=== PATIENT | female | born 1940 | race African-American/Black ===

== ENCOUNTER 2017-08-05 13:20 | Inpatient (IN) | payer OTHER ==
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
[2017-08-05] MEDS ORDERED: SODIUM CHLORIDE 1,000 ML IV STA (14:50)
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
[2017-08-05 16:17] LABS: BASOPHIL 0.3 % (0-2.0); EOSINOPHIL 1.9 % (0-4.5); MCH 26.3 pg (25.7-33.7); MCHC 32.2 g/dl (32.0-36.0); MEAN CELL VOLUME 81.9 fl (80-96); MEAN PLT VOLUME 7.8 fl (7.5-11.1); NEUTROPHILS 68.5 % (42.8-82.8); PLATELET COUNT 212 K/MM3 (134-434); RDW 14.8 % (11.6-15.6); WHITE BLOOD COUNT 9.9 K/mm3 (4.0-10.0)
[2017-08-05 17:15] LABS: ALBUMIN 2.4 g/dl (3.4-5.0); ALK PHOS 70 U/L (45-117); ANION GAP 9 (8-16); BILIRUBIN,TOTAL 0.6 mg/dL (0.2-1.0); CO2 23 mmol/L (21-32); CPK 598 IU/L (26-192); CREATININE 0.6 mg/dL (0.55-1.02); GLUCOSE,RANDOM 72 mg/dL (74-106); MAGNESIUM 2.1 mg/dL (1.8-2.4); SGOT/AST 25 U/L (15-37); SGPT/ALT 30 U/L (12-78)
[2017-08-05 17:17] LABS: TROPONIN I < 0.02 ng/ml (0.00-0.05)
[2017-08-05 17:56] LABS: ACETONE SERUM POSITIVE SMALL 1+ (NEGATIVE)
[2017-08-05] MEDS ORDERED: SODIUM CHLORIDE 500 ML IV STA (18:02)
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
[2017-08-05] MEDS: HYDROCHLOROTHIAZIDE 25 MG TABLET (FP) PO SCH (20:06)
[2017-08-05] MEDS: HEPARIN NA (PORCINE) 5,000 UNITS/ML 1ML VIAL SQ SCH (20:06)
[2017-08-05] MEDS: COLLAGENASE CLOSTRIDIUM HIST. 30 GRAMS TUBE TP SCH (20:55)
[2017-08-05] MEDS ORDERED: IBUPROFEN 600 MG TABLET (FP) PO PRN (22:06)
[2017-08-05 23:52] VITALS: BMI 51.3
[2017-08-06] MEDS: HEPARIN NA (PORCINE) 5,000 UNITS/ML 1ML VIAL SQ SCH ×3 (05:38→22:23)
[2017-08-06 08:32] LABS: BASOPHIL 0.6 % (0-2.0); EOSINOPHIL 4.1 % (0-4.5); MCH 25.9 pg (25.7-33.7); MCHC 32.5 g/dl (32.0-36.0); MEAN CELL VOLUME 79.8 fl (80-96); MEAN PLT VOLUME 7.2 fl (7.5-11.1); NEUTROPHILS 54.2 % (42.8-82.8); PLATELET COUNT 273 K/MM3 (134-434); RDW 14.7 % (11.6-15.6); WHITE BLOOD COUNT 8.3 K/mm3 (4.0-10.0)
[2017-08-06 08:41] LABS: INR 1.27 (0.82-1.09); PROTHROMBIN TIME (PATIENT) 14.3 SEC (9.98-11.88)
[2017-08-06 08:45] LABS: ACTIVATED PTT 28.2 SECONDS (26.9-34.4)
[2017-08-06 08:47] LABS: ANION GAP 10 (8-16); BILIRUBIN,TOTAL 0.8 mg/dL (0.2-1.0); CALCIUM 7.7 mg/dL (8.5-10.1); CO2 23 mmol/L (21-32); CREATININE 0.7 mg/dL (0.55-1.02); GLUCOSE,RANDOM 74 mg/dL (74-106); PHOSPHOROUS 2.9 mg/dL (2.5-4.9); SGOT/AST 23 U/L (15-37); SGPT/ALT 27 U/L (12-78)
--- NOTE | 2017-08-06 08:47 | EKG ---
Test Reason : Blood Pressure : / mmHG Vent. Rate : 085 BPM Atrial Rate : 085 BPM P-R Int : 148 ms QRS Dur : 064 ms QT Int : 378 ms P-R-T Axes : 039 047 058 degrees QTc Int : 449 ms POOR DATA QUALITY, INTERPRETATION MAY BE ADVERSELY AFFECTED SINUS RHYTHM WITH PREMATURE SUPRAVENTRICULAR COMPLEXES JUNCTIONAL ST DEPRESSION, PROBABLY NORMAL BORDERLINE ECG WHEN COMPARED WITH ECG OF 08-JUN-2014 16:19, PREMATURE SUPRAVENTRICULAR COMPLEXES ARE NOW PRESENT T WAVE INVERSION NO LONGER EVIDENT IN ANTERIOR LEADS Confirmed by ROXANE LARA, MARIE ([id number]) on 08/06/2017 8:47:07 AM Referred By: Confirmed By:MARIE BETTS MD
[2017-08-06 08:49] LABS: ALK PHOS 59 U/L (45-117); TOT PROT 5.4 g/dl (6.4-8.2)
[2017-08-06] MEDS: COLLAGENASE CLOSTRIDIUM HIST. 30 GRAMS TUBE TP SCH (09:29)
[2017-08-06] MEDS: BACITRACIN 15 GM TUBE TOPICAL OINTMENT TP SCH ×2 (09:30→09:33)
[2017-08-06] MEDS: HYDROCHLOROTHIAZIDE 25 MG TABLET (FP) PO SCH (09:30)
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
[2017-08-06 11:07] LABS: URINE APPEARANCE CLOUDY; URINE BILIRUBIN NEGATIVE (NEGATIVE); URINE BLOOD 2+ (NEGATIVE); URINE COLOR YELLOW; URINE GLUCOSE (UA) NEGATIVE (NEGATIVE); URINE KETONE 1+ (NEGATIVE); URINE NITRITE NEGATIVE (NEGATIVE)
[2017-08-06 11:15] LABS: URINE PROTEIN 1+ (NEGATIVE)
[2017-08-06 11:18] LABS: URINE MUCUS RARE; URINE RBC 85 /hpf (0-3); URINE WBC 155 /hpf (3-5)
[2017-08-06] MEDS: ALBUTEROL SO4 18 GM HFA INHALER IH SCH ×2 (13:07→18:05)
[2017-08-06] MEDS: POTASSIUM CHLORIDE TABS 20 MEQ TABLET.ER (FP) PO SCH ×2 (13:07→18:05)
[2017-08-06] MEDS ORDERED: PT OWN MED DRAWER 7, Y5N ONE ×2 (13:12→18:01)
[2017-08-06 20:58] LABS: URINE LEUK ESTERASE 1+ (NEGATIVE)
[2017-08-06] MEDS ORDERED: IBUPROFEN 400 MG TABLET (FP) PO ONE (23:21)
[2017-08-07] MEDS: ALBUTEROL SO4 18 GM HFA INHALER IH SCH ×4 (00:26→17:46)
[2017-08-07] MEDS ORDERED: PT OWN MED DRAWER 7, Y5N ONE ×3 (05:49→17:48)
[2017-08-07] MEDS: HEPARIN NA (PORCINE) 5,000 UNITS/ML 1ML VIAL SQ SCH ×3 (05:53→23:05)
[2017-08-07] MEDS: COLLAGENASE CLOSTRIDIUM HIST. 30 GRAMS TUBE TP SCH (10:30)
[2017-08-07] MEDS: BACITRACIN 15 GM TUBE TOPICAL OINTMENT TP SCH (10:30)
[2017-08-07] MEDS: HYDROCHLOROTHIAZIDE 25 MG TABLET (FP) PO SCH (10:30)
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
[2017-08-07] MEDS: AMINO ACIDS/PROTEIN HYDROLYS 30 ML LIQUID.PKT PO SCH (17:02)
[2017-08-07] MEDS ORDERED: IBUPROFEN 400 MG TABLET (FP) PO ONE (23:00)
[2017-08-08] MEDS: ALBUTEROL SO4 18 GM HFA INHALER IH SCH ×3 (03:01→12:24)
[2017-08-08] MEDS ORDERED: IBUPROFEN 400 MG TABLET (FP) PO ONE (03:21)
[2017-08-08] MEDS: HEPARIN NA (PORCINE) 5,000 UNITS/ML 1ML VIAL SQ SCH ×3 (06:01→22:28)
[2017-08-08] MEDS: AMINO ACIDS/PROTEIN HYDROLYS 30 ML LIQUID.PKT PO SCH ×2 (08:29→19:07)
[2017-08-08 08:57] LABS: ALBUMIN 2.1 g/dl (3.4-5.0); ANION GAP 6 (8-16); BILIRUBIN,TOTAL 0.4 mg/dL (0.2-1.0); CO2 31 mmol/L (21-32); CREATININE 0.6 mg/dL (0.55-1.02); GLUCOSE,RANDOM 103 mg/dL (74-106); SGOT/AST 17 U/L (15-37); SGPT/ALT 25 U/L (12-78); TOT PROT 5.5 g/dl (6.4-8.2)
[2017-08-08 08:58] LABS: ALK PHOS 56 U/L (45-117); CPK 183 IU/L (26-192)
[2017-08-08] MEDS ORDERED: POTASSIUM CHLORIDE TABS 20 MEQ TABLET.ER (FP) PO ONE (10:00)
[2017-08-08] MEDS: HYDROCHLOROTHIAZIDE 25 MG TABLET (FP) PO SCH (10:17)
[2017-08-08] MEDS: COLLAGENASE CLOSTRIDIUM HIST. 30 GRAMS TUBE TP SCH (10:18)
[2017-08-08] MEDS: BACITRACIN 15 GM TUBE TOPICAL OINTMENT TP SCH (10:18)
[2017-08-08 12:47] LABS: URINE APPEARANCE CLEAR; URINE BILIRUBIN NEGATIVE (NEGATIVE); URINE BLOOD NEGATIVE (NEGATIVE); URINE COLOR LTYELLOW; URINE GLUCOSE (UA) NEGATIVE (NEGATIVE); URINE KETONE NEGATIVE (NEGATIVE); URINE NITRITE NEGATIVE (NEGATIVE); URINE PROTEIN NEGATIVE (NEGATIVE); URINE UROBILINOGEN NEGATIVE mg/dL (0.2-1.0)
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
[2017-08-08 17:37] LABS: URINE LEUK ESTERASE Negative (NEGATIVE)
[2017-08-08] MEDS ORDERED: PT OWN MED DRAWER 7, Y5N ONE (17:54)
[2017-08-09] MEDS: IBUPROFEN 400 MG TABLET (FP) PO PRN ×3 (00:12→18:49)
[2017-08-09] MEDS: HEPARIN NA (PORCINE) 5,000 UNITS/ML 1ML VIAL SQ SCH ×3 (06:35→21:42)
[2017-08-09 08:05] LABS: ANION GAP 10 (8-16); CALCIUM 8.8 mg/dL (8.5-10.1); CO2 29 mmol/L (21-32); CREATININE 0.6 mg/dL (0.55-1.02); GLUCOSE,RANDOM 98 mg/dL (74-106)
[2017-08-09] MEDS ORDERED: POTASSIUM CHLORIDE TABS 20 MEQ TABLET.ER (FP) PO ONE (09:00)
[2017-08-09] MEDS: HYDROCHLOROTHIAZIDE 25 MG TABLET (FP) PO SCH (10:26)
[2017-08-09] MEDS: AMINO ACIDS/PROTEIN HYDROLYS 30 ML LIQUID.PKT PO SCH ×2 (10:27→18:45)
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
[2017-08-09] MEDS: COLLAGENASE CLOSTRIDIUM HIST. 30 GRAMS TUBE TP SCH (16:27)
[2017-08-09] MEDS: BACITRACIN 15 GM TUBE TOPICAL OINTMENT TP SCH (16:33)
[2017-08-09] MEDS: ALBUTEROL SO4 18 GM HFA INHALER IH PRN (21:42)
[2017-08-10] MEDS: ALBUTEROL SO4 18 GM HFA INHALER IH PRN (05:47)
[2017-08-10] MEDS: HEPARIN NA (PORCINE) 5,000 UNITS/ML 1ML VIAL SQ SCH ×3 (05:47→20:59)
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
[2017-08-10] MEDS: AMINO ACIDS/PROTEIN HYDROLYS 30 ML LIQUID.PKT PO SCH ×2 (08:19→17:33)
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
[2017-08-10] MEDS ORDERED: PT OWN MED DRAWER 7, Y5N ONE (09:47)
[2017-08-10] MEDS: BACITRACIN 15 GM TUBE TOPICAL OINTMENT TP SCH (09:56)
[2017-08-10] MEDS: HYDROCHLOROTHIAZIDE 25 MG TABLET (FP) PO SCH (09:56)
[2017-08-10] MEDS: COLLAGENASE CLOSTRIDIUM HIST. 30 GRAMS TUBE TP SCH (09:56)
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
[2017-08-10] MEDS: IBUPROFEN 400 MG TABLET (FP) PO PRN (20:45)
[2017-08-11] MEDS: HEPARIN NA (PORCINE) 5,000 UNITS/ML 1ML VIAL SQ SCH (05:38)
[2017-08-11] MEDS: IBUPROFEN 400 MG TABLET (FP) PO PRN (06:07)
[2017-08-11] MEDS: AMINO ACIDS/PROTEIN HYDROLYS 30 ML LIQUID.PKT PO SCH (08:23)
[2017-08-11] MEDS ORDERED: PT OWN MED DRAWER 7, Y5N ONE (09:43)
[2017-08-11] MEDS: HYDROCHLOROTHIAZIDE 25 MG TABLET (FP) PO SCH (09:44)
[2017-08-11 12:20] VITALS: BP 118/66; PULSE 66; TEMP 98.1
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
[2017-08-11] MEDS: COLLAGENASE CLOSTRIDIUM HIST. 30 GRAMS TUBE TP SCH (13:15)
[2017-08-11] MEDS: BACITRACIN 15 GM TUBE TOPICAL OINTMENT TP SCH (13:15)
== END 2017-08-11 14:01 | DRG 564 ==
LOC: JER 13:20 → JERBED 18:09 → J8W 19:36 → OBSVTOIN 08-08 15:33
PROVIDERS: ADMIT Internal Medicine; ATTEND Hospitalist
DX: T79.6XXA Traumatic ischemia of muscle, initial encounter (principal); L89.313 Pressure ulcer of right buttock, stage 3; T74.11XA Adult physical abuse, confirmed, initial encounter; Z68.43 Body mass index [BMI] 50.0-59.9, adult; N39.0 Urinary tract infection, site not specified; E87.2 Acidosis; W18.39XA Other fall on same level, initial encounter; E66.01 Morbid (severe) obesity due to excess calories; I10 Essential (primary) hypertension; J45.909 Unspecified asthma, uncomplicated; Z90.5 Acquired absence of kidney; E87.6 Hypokalemia; M19.90 Unspecified osteoarthritis, unspecified site; M79.606 Pain in leg, unspecified
CPT/HCPCS: 36415; 71010-TC; 73523-TC; 80048; 80053; 81003; 81015; 82009; 82550; 82553; 83735; 83880; 84100; 84484; 85025; 85610; 85730; 86850; 86900; 86901; 87086; 93005; 93010; 97116-GP; 97161-GP; 99285-25; G0378; J1644

== ENCOUNTER 2019-08-15 12:50 | Inpatient (IN) | payer OTHER ==
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
[2019-08-15] MEDS ORDERED: SODIUM CHLORIDE 0.9% 1000 ML INFUS.BAG IV ONE (13:30)
--- NOTE | 2019-08-15 13:47 | PDOC ---
History of Present Illness - General Stated Complaint: FALL Time Seen by Provider: 08/15/19 13:08 History Source: Patient - History of Present Illness Initial Comments: 08/15/19 13:33 Patient is a 78 year old female with PMH HTN, asthma, morbid obesity, osteoarthritis, s/p L nephrectomy who presents with failure to thrive s/p immobility x1 week. Pt lives alone. She reports that one week ago she was walking to her front door when her legs cramped up and froze underneath herself and she slowly slid down to a seating position. She denies chest pain, SOB, lightheadedness, palpitations, vision changes prior to this event. Pt states that she has been on the ground sitting against her couch since this event, unable to get up due to her leg cramping and unable to call for help due to her phone dying. She has not eaten and has been urinating and soiling herself since. She states that her neighbor came by several times but she could not get to the door to answer. Finally, EMS was called and found her sitting on the floor against her couch. At this time, she complains of coldness, mild chest tightness, dyspnea, leg cramping, thirstiness and hunger. Pt has a daughter who usually visits her, but "has not come by since Mother's Day". She has not seen a doctor in over a year. States that she takes her medications but does not know the names. Reports that she is usually able to ambulate and take care of herself on her own. Denies any episodes similar to this in the past. PCP: none PMH: per HPI Surgical hx: L nephrectomy in 1970s Social: denies cigarette or drug use, drinks occasional beer Allergies: PCN 08/15/19 17:43 Past History - Past Medical History Allergies/Adverse Reactions: Allergies Allergy/AdvReac Type Severity Reaction Status Date / Time acetaminophen Allergy Difficulty Verified 08/15/19 13:31 [From Darvocet-N 100] Breathing Penicillins Allergy Rash Verified 08/15/19 13:31 propoxyphene napsylate Allergy Difficulty Verified 08/15/19 13:31 [From Darvocet-N 100] Breathing Home Medications: Ambulatory Orders Albuterol Sulfate Inhaler - [Ventolin HFA Inhaler -] 2 inh PO Q6H PRN 06/04/14 Amlodipine Besylate [Norvasc -] 5 mg PO DAILY 08/15/19 Nitroglycerin 0.3 mg SL PRN PRN 08/15/19 Asthma: Yes COPD: No Diabetes: Yes HTN: Yes Psychiatric Problems: Yes (DEPRESSION) - Psycho Social/Smoking Cessation Hx Smoking History: Former smoker Have you smoked in the past 12 months: No Information on smoking cessation initiated: No Hx Alcohol Use: No Drug/Substance Use Hx: No Substance Use Type: None Review of Systems - Review of Systems Able to Perform ROS?: Yes Constitutional: Yes: Chills, Malaise, Weakness HEENTM: No: Symptoms Reported, See HPI, Eye Pain, Blurred Vision, Tearing, Recent change in vision, Double Vision, Cataracts, Ear Pain, Ocular Prothesis, Ear Discharge, Nose Pain, Nose Congestion, Tinnitus, Nose Bleeding, Hearing Loss , Throat Pain, Throat Swelling, Mouth Pain, Dental Problems, Difficulty Swallowing, Mouth Swelling, Other Respiratory: Yes: Shortness of Breath. No: Cough, Productive cough Cardiac (ROS): Yes: Chest Tightness. No: Lightheadedness, Palpitations, Syncope ABD/GI: Yes: Abdominal Distended, Poor Appetite, Poor Fluid Intake, Abdominal cramping. No: Vomiting : No: Symptoms Reported, See HPI, Burning, Dysuria, Discharge, Frequency, Flank Pain, Hematuria, Incontinence, Pain, Urgency, Testicular Mass, Testicular Swelling, Lesions, Testicular Pain, Other Musculoskeletal: Yes: Back Pain, Joint Pain, Muscle Pain, Muscle Weakness, Joint Stiffness. No: Neck Pain Neurological: Yes: Seizure, Weakness. No: Headache, Numbness, Paresthesia, Dizziness *Physical Exam - Vital Signs Last Vital Signs Temp Pulse Resp BP Pulse Ox 96.4 F L 99 H 24 H 126/80 08/15/19 12:50 08/15/19 12:50 08/15/19 12:50 08/15/19 12:50 - Physical Exam General Appearance: Yes: Apparent Distress, Disheveled, Obese. No: Nourished HEENT: positive: EOMI, PATSY, Other (Dry mouth and tongue) Neck: positive: Supple. negative: Tender Respiratory/Chest: positive: Lungs Clear, Normal Breath Sounds, Accessory Muscle Use, Other (Tachyneic). negative: Chest Tender, Respiratory Distress Cardiovascular: positive: Regular Rhythm, S1, S2, Tachycardia. negative: Edema , JVD, Murmur Vascular Pulses: Dorsalis-Pedis (R): 2+, Doralis-Pedis (L): 2+ Musculoskeletal: negative: CVA Tenderness Extremity: positive: Coldness, Erythema. negative: Calf Tenderness Integumentary: positive: Dry, Pale, Cold, Clammy, Other (Multiple stage 2 ulcers and excoriations in back and sacral area, Fungal infections under pannus) ED Treatment Course - LABORATORY CBC & Chemistry Diagram: 08/15/19 14:00 08/15/19 16:21 Medical Decision Making - Medical Decision Making 08/15/19 13:50 >> Septic order set 08/15/19 15:16 Leukocytosis: 15.1 Lactic acid: 4.8 Urine: 1+ blood, trace ketones, trace LE CXR: no acute pathology Head CT: diffuse generalized prominence of ventricles and sulci suggestive of chronic atrophy, no evidency of hemorrhage or infarction C-spine CT: degenerative changes seen on prior exam. No acute osseous injury Na: 164 BUN: 149.2 Cr: 5.7 CPK: 615 > Spoke with Dr. Corona. Recommends 1L of 1/2-NS @ 100ml/hr, then repeat BMP. Consult order put in, will follow. Discharge - Discharge Information Problems reviewed: Yes Clinical Impression/Diagnosis: Failure to thrive Qualifiers: Failure to thrive age range: in adult Qualified Code(s): R62.7 - Adult failure to thrive - Admission Yes - Follow up/Referral - Patient Discharge Instructions - Post Discharge Activity
[2019-08-15 14:28] LABS: BASO % 0.3 % (0-2.0); HEMATOCRIT 47.2 % (32.4-45.2); HEMOGLOBIN 15.1 GM/dL (10.7-15.3); LYMPH % 6.1 % (8-40); MCH 26.3 pg (25.7-33.7); MCHC 31.9 g/dl (32.0-36.0); MEAN CELL VOLUME 82.3 fl (80-96); MEAN PLT VOLUME 8.8 fl (7.5-11.1); MONO % 9.6 % (3.8-10.2); PLATELET COUNT 362 K/MM3 (134-434); RBC 5.73 M/mm3 (3.60-5.2); RDW 15.6 % (11.6-15.6); WHITE BLOOD COUNT 15.1 K/mm3 (4.0-10.0)
[2019-08-15 14:32] LABS: INR 1.24 (0.83-1.09); PROTHROMBIN TIME (PATIENT) 14.7 SEC (9.7-13.0)
[2019-08-15 14:35] LABS: ACTIVATED PTT 30.6 SECONDS (25.2-36.5)
[2019-08-15 14:36] LABS: VENOUS PC02 27.4 mmHg (38-52); VENOUS PH 7.32 (7.31-7.41)
[2019-08-15 14:40] LABS: VENOUS PO2 52.1 mmHg (28-48)
[2019-08-15] MEDS ORDERED: SODIUM CHLORIDE 0.9% 500 ML INFUS.BAG IV ONE (15:09)
[2019-08-15 15:52] LABS: URINE APPEARANCE TURBID; URINE BILIRUBIN MODERATE (NEGATIVE); URINE COLOR DK YELLOW; URINE GLUCOSE (UA) NEGATIVE (NEGATIVE); URINE KETONE TRACE (NEGATIVE)
[2019-08-15 15:53] LABS: EPI CELLS 32.4 /HPF (0-5/HPF); URINE LEUK ESTERASE TRACE (NEGATIVE); URINE NITRITE NEGATIVE (NEGATIVE); URINE PROTEIN TRACE (NEGATIVE); URINE RBC 3.6 /hpf (0-4); URINE UROBILINOGEN 1 mg/dL (0.2-1.0); URINE WBC 16 /hpf (0-5)
[2019-08-15 15:54] LABS: HYALINE CASTS 370.65 /lpf (0-8); URINE BACTERIA 5.9 /hpf (NEGATIVE)
[2019-08-15 17:11] LABS: ALBUMIN 2.8 g/dl (3.4-5.0); ALK PHOS 86 U/L (45-117); ANION GAP 15 MMOL/L (8-16); BILIRUBIN,TOTAL 0.4 mg/dL (0.2-1); CALCIUM 9.8 mg/dL (8.5-10.1); CHLORIDE 134 mmol/L (98-107); CO2 15 mmol/L (21-32); CREATININE 5.7 mg/dL (0.55-1.3); GLUCOSE,RANDOM 182 mg/dL (74-106); POTASSIUM 4.7 mmol/L (3.5-5.1); SGOT/AST 30 U/L (15-37); SGPT/ALT 38 U/L (13-61); TOT PROT 7.3 g/dl (6.4-8.2)
[2019-08-15 17:16] LABS: BLOOD UREA NITROGEN 149.2 mg/dL (7-18); SODIUM 164 mmol/L (136-145)
[2019-08-15] MEDS ORDERED: SODIUM CHLORIDE 1,000 ML IV SCH (17:30)
[2019-08-15] MEDS ORDERED: SODIUM CHLORIDE 0.45% 1,000 ML IV SCH (17:45)
--- NOTE | 2019-08-15 21:33 | HP ---
Admitting History and Physical - Admission Chief Complaint: Dehydration, Failure to Thrive, Found on the floor at home History of Present Illness: This is a 78 y/o woman with a PMHx of HTN, Asthma, Morbid Obesity, Osteoarthritis, s/p L- Nephrectomy. Who presents to the ED with failure to thrive s/p immobility x1 week. Pt lives alone. She reports that one week ago she was walking to her front door when her legs cramped up and froze underneath herself and she slowly slid down to a seating position. She denies chest pain, SOB, lightheadedness, palpitations, vision changes prior to this event. Patient states that she has been on the ground sitting against her couch since this event, unable to get up due to her leg cramping and unable to call for help due to her phone dying. She has not eaten and has been urinating and soiling herself since. She states that her neighbor came by several times but she could not get to the door to answer. Finally, EMS was called and found her sitting on the floor against her couch. At this time, she complains of coldness , mild chest tightness, dyspnea, leg cramping, thirstiness and hunger. Pt has a daughter who usually visits her, but "has not come by since Mother's Day". She has not seen a doctor in over a year. States that she takes her medications but does not know the names. Reports that she is usually able to ambulate and take care of herself on her own. Denies any episodes similar to this in the past. History Source: Patient, Medical Record Limitations to Obtaining History: Clinical Condition, Poor Historian - Past Medical History Cardiovascular: Yes: HTN Pulmonary: Yes: Asthma Musculoskeletal: Yes: Osteoarthritis - Past Surgical History Past Surgical History: Yes: Nephrectomy (left) - Smoking History Smoking history: Former smoker Have you smoked in the past 12 months: No - Alcohol/Substance Use Hx Alcohol Use: No History of Substance Use: reports: None - Social History Usual Living Arrangement: Yes: Alone History of Recent Travel: No Home Medications - Allergies Allergies/Adverse Reactions: Allergies Allergy/AdvReac Type Severity Reaction Status Date / Time acetaminophen Allergy Difficulty Verified 08/15/19 13:31 [From Darvocet-N 100] Breathing Penicillins Allergy Rash Verified 08/15/19 13:31 propoxyphene napsylate Allergy Difficulty Verified 08/15/19 13:31 [From Darvocet-N 100] Breathing Family Medical History Family History: Unable to Obtain Review of Systems Unable to obtain ROS, reason: clinical condition Physical Examination Vital Signs: Vital Signs Temperature 97 F L 08/15/19 19:23 Pulse Rate 92 H 08/15/19 19:16 Respiratory Rate 18 08/15/19 19:16 Blood Pressure 124/89 08/15/19 19:16 O2 Sat by Pulse Oximetry (%) 98 08/15/19 19:16 Constitutional: Yes: Anxious, Obese, Other (Agitated and Uncooperative, Poor Hygiene) Eyes: Yes: Conjunctiva Clear, PERRL HENT: Yes: WNL, Atraumatic, Normocephalic Neck: Yes: WNL, Supple, Trachea Midline Cardiovascular: Yes: Regular Rate and Rhythm, S1, S2. No: Gallop, Murmur, Rub Respiratory: Yes: WNL, Regular, CTA Bilaterally Gastrointestinal: Yes: Normal Bowel Sounds, Soft, Abdomen, Obese, Tenderness ( generalized) Renal/: Yes: Incontinence Edema: Yes Edema: LLE: 1+, RLE: 1+ Peripheral Pulses WNL: Yes Integumentary: Yes: Erythema, Pressure Ulcer (stage 2 to LLE, Left gluteal), Rash Neurological: Yes: Alert ...Motor Strength: WNL Psychiatric: Yes: Alert, Oriented, Agitated Labs: CBC, BMP 08/15/19 14:00 08/15/19 16:21 Imaging - Results Chest X-ray: Report Reviewed, Image Reviewed Cat Scan: Report Reviewed, Image Reviewed Problem List - Problems (1) Dehydration with hypernatremia Assessment/Plan: Na 164 Free water deficit 9.8L Appreciate Nephrology consult Continue IVF Serial BMPs Continue cardiac monitoring Neuro checks Code(s): E87.0 - HYPEROSMOLALITY AND HYPERNATREMIA (2) Rhabdomyolysis Assessment/Plan: Likely secondary to profound dehydration CK 615 Continue IVF Continue cardiac monitoring Serial Cardiac Enzymes x2 Code(s): M62.82 - RHABDOMYOLYSIS (3) Fall Assessment/Plan: unwitnessed fall Likely due to dehydration Head CT- chronic changes, no acute intracranial process C-spine CT- degenerative changes, C4-5, no acute osseous injury Chest xray- no acute cardiopulmonary pathology PT eval- general conditioning, gait stability Fall Precautions Code(s): W19.XXXA - UNSPECIFIED FALL, INITIAL ENCOUNTER (4) Failure to thrive Assessment/Plan: Encourage PO fluids NS bolus given in ED Appreciate Case management- STR/SNF placement Albumin 2.8 Code(s): KMT3294 - Qualifiers: Failure to thrive age range: in adult Qualified Code(s): R62.7 - Adult failure to thrive (5) HTN (hypertension) Assessment/Plan: stable Monitor BP Will hold HCTZ secondary to Hypernatremia Monitor renal function Code(s): I10 - ESSENTIAL (PRIMARY) HYPERTENSION (6) Asthma Assessment/Plan: stable No acute flare Duonebs prn Monitor vitals, Spo2 Chest Xray reviewed- no acute cardiopulmonary pathology Code(s): J45.909 - UNSPECIFIED ASTHMA, UNCOMPLICATED (7) Osteoarthritis Assessment/Plan: stable Tylenol prn Code(s): M19.90 - UNSPECIFIED OSTEOARTHRITIS, UNSPECIFIED SITE (8) Stage II decubitus ulcer Assessment/Plan: Left Leg and Left Gluteal Wound Care Turn Q2h Monitor vitals, CBC Code(s): L89.92 - PRESSURE ULCER OF UNSPECIFIED SITE, STAGE 2 (9) Severe obesity (BMI >= 40) Assessment/Plan: Carb Control Diet Code(s): E66.01 - MORBID (SEVERE) OBESITY DUE TO EXCESS CALORIES Assessment/Plan This is a 78 y/o woman with a PMHx of HTN, Asthma, OA, s/p L- Nephrectomy, Severe Obesity. Admitted for Acute Renal Failure, Hypernatremia, Dehydration, Rhabdomyolysis, Failure to Thrive, s/p Fall for further evaluation of their emergent condition. Plan: See Problem List FEN 1/2NS@100ml/hr Replete lytes prn Low Na Diet- Soft DVT ppx OOB SCDs Heparin SQ Code Status: Full Code Dispo: Requires Inpatient Care Visit type - Emergency Visit Emergency Visit: Yes ED Registration Date: 08/15/19 Care time: The patient presented to the Emergency Department on the above date and was hospitalized for further evaluation of their emergent condition. - New Patient This patient is new to me today: Yes Date on this admission: 08/15/19 - Critical Care Critical Care patient: No
[2019-08-16 05:59] LABS: ANION GAP 14 MMOL/L (8-16); CALCIUM 9.3 mg/dL (8.5-10.1); CHLORIDE 132 mmol/L (98-107); CO2 16 mmol/L (21-32); CREATININE 5.5 mg/dL (0.55-1.3); GLUCOSE,RANDOM 112 mg/dL (74-106); POTASSIUM 4.3 mmol/L (3.5-5.1)
[2019-08-16 06:00] LABS: BLOOD UREA NITROGEN 149.8 mg/dL (7-18)
[2019-08-16 06:02] LABS: SODIUM 161 mmol/L (136-145)
[2019-08-16 06:26] LABS: MAGNESIUM 3.2 mg/dL (1.8-2.4); PHOSPHOROUS 3.9 mg/dL (2.5-4.9)
[2019-08-16] MEDS ORDERED: SODIUM CHLORIDE 1,000 ML IV SCH ×4 (10:00→16:25)
[2019-08-16 11:28] LABS: CALCIUM 9.6 mg/dL (8.5-10.1); CREATININE 5.5 mg/dL (0.55-1.3)
[2019-08-16 11:31] LABS: BLOOD UREA NITROGEN 156.3 mg/dL (7-18)
[2019-08-16 11:43] LABS: BASO % 0.1 % (0-2.0); EOS % 0.1 % (0-4.5); HEMATOCRIT 36.5 % (32.4-45.2); HEMOGLOBIN 11.9 GM/dL (10.7-15.3); LYMPH % 9.1 % (8-40); MCH 26.1 pg (25.7-33.7); MCHC 32.6 g/dl (32.0-36.0); MEAN CELL VOLUME 79.9 fl (80-96); MEAN PLT VOLUME 7.6 fl (7.5-11.1); MONO % 11.2 % (3.8-10.2); NEUT % 79.5 % (42.8-82.8); PLATELET COUNT 213 K/MM3 (134-434); RBC 4.57 M/mm3 (3.60-5.2); RDW 14.9 % (11.6-15.6)
--- NOTE | 2019-08-16 13:20 | EKG ---
Test Reason : Blood Pressure : / mmHG Vent. Rate : 100 BPM Atrial Rate : 100 BPM P-R Int : 130 ms QRS Dur : 070 ms QT Int : 342 ms P-R-T Axes : 072 053 095 degrees QTc Int : 441 ms POOR DATA QUALITY, INTERPRETATION MAY BE ADVERSELY AFFECTED NORMAL SINUS RHYTHM NONSPECIFIC ST AND T WAVE ABNORMALITY ABNORMAL ECG WHEN COMPARED WITH ECG OF 15-AUG-2019 13:26, NONSPECIFIC T WAVE ABNORMALITY NOW EVIDENT IN INFERIOR LEADS Confirmed by SHA ADRIAN MD ([id number]) on 08/16/2019 1:20:16 PM Referred By: Confirmed By:SHA ADRIAN MD
--- NOTE | 2019-08-16 13:36 | CONSULT ---
Consult Consult Specialty:: Nephrology Reason for Consultation:: YAEL - History of Present Illness Chief Complaint: failure to thrive History of Present Illness: Pt is a 78 year old female with pmhx of htn, asthma, morbid obesity, ckd with hx of nephrectomy who presents to the ER with failure to thrive. She is not cooperative with history or treatment. She was found to be in renal failure and I was called to evaluate her. She denies chest pain or shortness of breath. She denies fevers or chills. She says that her legs cramp up and she does not walk or move much. - History Source History Provided By: Patient, Medical Record - Past Medical History Cardio/Vascular: Yes: HTN Pulmonary: Yes: Asthma Renal/: Yes: Renal Inusuff Musculoskeletal: Yes: Osteoarthritis - Past Surgical History Past Surgical History: Yes: Nephrectomy (left) - Alcohol/Substance Use Hx Alcohol Use: No History of Substance Use: reports: None - Smoking History Smoking history: Former smoker Have you smoked in the past 12 months: No - Social History Usual Living Arrangement: Alone History of Recent Travel: No Home Medications - Allergies Allergies/Adverse Reactions: Allergies Allergy/AdvReac Type Severity Reaction Status Date / Time acetaminophen Allergy Difficulty Verified 08/15/19 13:31 [From Darvocet-N 100] Breathing Penicillins Allergy Rash Verified 08/15/19 13:31 propoxyphene napsylate Allergy Difficulty Verified 08/15/19 13:31 [From Darvocet-N 100] Breathing Family Medical History Family History: Denies Review of Systems - Review of Systems Constitutional: reports: Malaise Eyes: reports: No Symptoms HENT: reports: No Symptoms Neck: reports: No Symptoms Cardiovascular: reports: Edema Respiratory: reports: No Symptoms Gastrointestinal: reports: No Symptoms Genitourinary: reports: No Symptoms Musculoskeletal: reports: No Symptoms Integumentary: reports: No Symptoms Neurological: reports: No Symptoms Endocrine: reports: No Symptoms Hematology/Lymphatic: reports: No Symptoms Physical Exam Vital Signs: Vital Signs Temperature 97.6 F 08/16/19 10:47 Pulse Rate 96 H 08/16/19 10:47 Respiratory Rate 22 H 08/16/19 10:47 Blood Pressure 153/92 08/16/19 08:30 O2 Sat by Pulse Oximetry (%) 99 08/16/19 10:47 Constitutional: Yes: Poor Hygeine Eyes: Yes: Conjunctiva Clear HENT: Yes: Atraumatic Neck: Yes: Supple Cardiovascular: Yes: S1, S2 Respiratory: Yes: CTA Bilaterally Gastrointestinal: Yes: Soft, Abdomen, Obese Renal/: Yes: Incontinence Musculoskeletal: Yes: Muscle Weakness Edema: Yes Edema: LLE: 1+, RLE: 1+ Neurological: Yes: Oriented Psychiatric: Yes: Oriented, Agitated Labs: CBC, BMP 08/16/19 11:20 08/16/19 10:30 Laboratory Tests 08/15/19 08/16/19 08/16/19 14:00 05:00 05:00 WBC 15.1 H Sodium 161 H* Potassium Carbon Dioxide BUN Creatinine 5.5 H Lactic Acid 2.8 H* Creatine Kinase 488 H 08/16/19 08/16/19 08/16/19 10:30 10:30 11:20 WBC 16.0 H Sodium 163 H* Potassium Carbon Dioxide BUN 156.3 H* Creatinine 5.5 H Lactic Acid 2.4 H* Creatine Kinase 08/16/19 14:50 WBC Sodium Potassium 4.3 Carbon Dioxide 18 L BUN 158.7 H* Creatinine 5.0 H Lactic Acid Creatine Kinase Imaging - Results Chest X-ray: Report Reviewed Problem List - Problems (1) YAEL (acute kidney injury) Code(s): N17.9 - ACUTE KIDNEY FAILURE, UNSPECIFIED (2) Asthma Code(s): J45.909 - UNSPECIFIED ASTHMA, UNCOMPLICATED (3) Dehydration with hypernatremia Code(s): E87.0 - HYPEROSMOLALITY AND HYPERNATREMIA (4) Failure to thrive Code(s): [id number] - Qualifiers: Failure to thrive age range: in adult Qualified Code(s): R62.7 - Adult failure to thrive (5) HTN (hypertension) Code(s): I10 - ESSENTIAL (PRIMARY) HYPERTENSION Assessment/Plan Current Medications Generic Name Dose Route Start Last Admin Trade Name Freq PRN Reason Stop Dose Admin Sodium Chloride 1,000 mls @ 125 mls/hr 08/16/19 10:00 08/16/19 10:45 Normal Saline - IV 125 mls/hr ASDIR GISELA Administration Impression 1. YAEL 2. hypernatremia 3. metabolic acidosis 4. htn 5. asthma 6. obesity Plan - pt pulled out IV and did not get much fluids - will restart fluids if she agrees - discussed her renal failure and she says that she would not want any dialysis therapy - pt refused to cooperate with renal ultrasound - monitor renal function - replace IV - psych eval warranted for capacity
--- NOTE | 2019-08-16 13:57 | PN ---
Teaching Attending Note Name of Resident: Althea Wilson ATTENDING PHYSICIAN STATEMENT I saw and evaluated the patient. I reviewed the resident's note and discussed the case with the resident. I agree with the resident's findings and plan as documented. SUBJECTIVE: pain every where. especially in her Abd and her L side ( does not specify ) . no CP ,, no SOB. OBJECTIVE: NAD , screams when moved or touched. dry MM. No JVD CV: RRR, no MRG Lungs: CTAB Abd: obese, 2 layers of pannus. excoriated skin under pannus, with erythema especially on R side. tenderness to light touch of the abd skin, and to deep palpation . generalized. Ext : tenderness with touch to her skin over the LE. no edema , no erythema. L calf lateral ulcer, with slough but no discharge Skin: L gluteal stage 2 ulcers. unable to inspect R side ASSESSMENT AND PLAN: 78 y/o lady with h/o HTN, Asthma, OA, obesity, L nephrectomy ( 1970s , unknown reason), who has no current medical care and on no meds who presented after she was not able to get up from the floor. she was found to have severe dehydrationand YAEL 1- Severe dehydration 2- YAEL: likely due to volume depletion . r/o obstruction 3- Mild Rhabdo 4- High AG metabolic acidosis. due to renal failure and KActic acid elevation 5- leukocytosis , no clear source of infection 6- h/o L renal resection 7- L leg and L gluteal stage 2 decubiti 8- H/o Asthma plan: - change IVF to NS. due to severe volume depletion - when volume is corrected ,c an switch to hypotonic solutions - monitor Na and Cr levels - Monitor electrolytes - needed an IV line, declined IJ if no peripheral could be found -abd pain is generalized and superficial. doubt any intraabdominal process. if lactic acid elevation persists after hydration , then might explore Abd - obtain renal US - frequent position changes. - monitor Blood pressure . not on ANy meds x > 1 year - monitor resp status - consult renal
[2019-08-16 14:09] LABS: ANISOCYTOSIS 0; MACROCYTOSIS 0; PLATELET ESTIMATE NORMAL
[2019-08-16 16:17] LABS: CALCIUM 9.2 mg/dL (8.5-10.1); POTASSIUM 4.3 mmol/L (3.5-5.1)
[2019-08-16 16:22] LABS: BLOOD UREA NITROGEN 158.7 mg/dL (7-18)
[2019-08-16] MEDS ORDERED: ALBUTEROL SO4 0.083% IH SOL 2.5 MG/3 ML VIAL.NEB. NEB PRN (17:17)
--- NOTE | 2019-08-16 17:27 | PN ---
Physical Exam: SUBJECTIVE: Patient seen and examined. She reports generalized pain, especially left abdominal and left leg. She denies shortness of breath but reports whitish sputum. She also reports generalized weakness. Pt reports she was on the floor for 5 days before EMS arrived. OBJECTIVE: Vital Signs Period Temp Pulse Resp BP Sys/Parr Pulse Ox Last 24 Hr 97 F-97.6 F 92-100 18-32 124-153/89-94 98-99 GENERAL: The patient is awake, alert, and fully oriented, in distress. Morbidly obese. Weak and not compliant with direction to move. Screams with palpation. HEAD: Normal with no signs of trauma. EYES: PERRL, extraocular movements intact, sclera anicteric, conjunctiva clear. ENT: Ears normal, nares patent, oropharynx erythematous, dry mucous membranes. NECK: Trachea midline, full range of motion, supple. LUNGS: Clear to auscultation bilaterally, no wheezes HEART: Regular rate and rhythm, no murmur ABDOMEN: Soft, tender to light palpation, especially left side; nondistended, normoactive bowel sounds; rash under pannus BACK: stage 2 sacral ulcer with smaller surrounding ulcers EXTREMITIES: Warm, well-perfused, stage 2 ulcer on left calf NEUROLOGICAL: Cranial nerves II through XII grossly intact. Normal speech. PSYCH: Normal mood, normal affect. SKIN: Warm, dry Laboratory Results - last 24 hr 08/15/19 08/15/19 08/15/19 16:21 16:21 18:11 WBC RBC Hgb Hct MCV MCH MCHC RDW Plt Count MPV Absolute Neuts (auto) Neutrophils % Neutrophils % (Manual) Band Neutrophils % Lymphocytes % Lymphocytes % (Manual) Monocytes % Monocytes % (Manual) Eosinophils % Eosinophils % (Manual) Basophils % Basophils % (Manual) Myelocytes % (Man) Promyelocytes % (Man) Blast Cells % (Manual) Nucleated RBC % Metamyelocytes Hypochromia Platelet Estimate Polychromasia Poikilocytosis Anisocytosis Microcytosis Macrocytosis Sodium 164 H* Potassium 4.7 Chloride 134 H Carbon Dioxide 15 L Anion Gap 15 BUN 149.2 H* Creatinine 5.7 H Est GFR (CKD-EPI)AfAm 7.57 Est GFR (CKD-EPI)NonAf 6.53 Random Glucose 182 H Lactic Acid 4.5 H* Calcium 9.8 Phosphorus Magnesium Total Bilirubin 0.4 AST 30 ALT 38 Alkaline Phosphatase 86 Creatine Kinase 615 H Creatine Kinase Index 1.5 Cancelled CK-MB (CK-2) 9.8 H Cancelled Troponin I < 0.02 Total Protein 7.3 Albumin 2.8 L TSH 08/16/19 08/16/19 08/16/19 05:00 05:00 10:30 WBC RBC Hgb Hct MCV MCH MCHC RDW Plt Count MPV Absolute Neuts (auto) Neutrophils % Neutrophils % (Manual) Band Neutrophils % Lymphocytes % Lymphocytes % (Manual) Monocytes % Monocytes % (Manual) Eosinophils % Eosinophils % (Manual) Basophils % Basophils % (Manual) Myelocytes % (Man) Promyelocytes % (Man) Blast Cells % (Manual) Nucleated RBC % Metamyelocytes Hypochromia Platelet Estimate Polychromasia Poikilocytosis Anisocytosis Microcytosis Macrocytosis Sodium 161 H* 163 H* Potassium 4.3 5.0 Chloride 132 H 134 H Carbon Dioxide 16 L 15 L Anion Gap 14 14 BUN 149.8 H* 156.3 H* Creatinine 5.5 H 5.5 H Est GFR (CKD-EPI)AfAm 7.90 7.90 Est GFR (CKD-EPI)NonAf 6.82 6.82 Random Glucose 112 H 106 Lactic Acid 2.8 H* Calcium 9.3 9.6 Phosphorus 3.9 Magnesium 3.2 H Total Bilirubin AST ALT Alkaline Phosphatase Creatine Kinase 488 H Creatine Kinase Index 1.3 CK-MB (CK-2) 6.5 H Troponin I < 0.02 Total Protein Albumin TSH 1.67 08/16/19 08/16/19 08/16/19 10:30 11:20 14:50 WBC 16.0 H RBC 4.57 Hgb 11.9 Hct 36.5 D MCV 79.9 L MCH 26.1 MCHC 32.6 RDW 14.9 Plt Count 213 D MPV 7.6 D Absolute Neuts (auto) 12.7 H Neutrophils % 79.5 Neutrophils % (Manual) 74.8 Band Neutrophils % 6.1 Lymphocytes % 9.1 D Lymphocytes % (Manual) 12.1 Monocytes % 11.2 H Monocytes % (Manual) 3 L Eosinophils % 0.1 D Eosinophils % (Manual) 1.0 D Basophils % 0.1 Basophils % (Manual) 0.0 Myelocytes % (Man) 1 D Promyelocytes % (Man) 0 D Blast Cells % (Manual) 0 Nucleated RBC % 1 H Metamyelocytes 1 D Hypochromia 0 Platelet Estimate Normal Polychromasia 0 Poikilocytosis 1+ Anisocytosis 0 Microcytosis 0 Macrocytosis 0 Sodium 165 H* Potassium 4.3 Chloride 135 H Carbon Dioxide 18 L Anion Gap 11 BUN 158.7 H* Creatinine 5.0 H Est GFR (CKD-EPI)AfAm 8.87 Est GFR (CKD-EPI)NonAf 7.65 Random Glucose 100 Lactic Acid 2.4 H* Calcium 9.2 Phosphorus Magnesium Total Bilirubin AST ALT Alkaline Phosphatase Creatine Kinase Creatine Kinase Index CK-MB (CK-2) Troponin I Total Protein Albumin TSH Active Medications Generic Name Dose Route Start Last Admin Trade Name Freq PRN Reason Stop Dose Admin Sodium Chloride 1,000 mls @ 200 mls/hr 08/16/19 16:25 08/16/19 16:26 Normal Saline - IV 200 mls/hr ASDIR GISELA Administration ASSESSMENT/PLAN: Ms. Kellogg is a 78y/o female with HTN, asthma, morbid obesity, osteoarthritis, s/ p L nephrectomy who presents following being found on the floor. #hypernatremia -160s -NS 200mL/hr -serial BMPs #YAEL -likely pre-renal but r/o obstruction -kidney U/S -bladder scan -nephro consulted #rhabdomyolysis -IV fluids #HTN -non-compliant on meds -monitor -metoprolol or hydralazine PRN #asthma -albuterol PRN DVT Ppx heparin FEN NS 200mL/hr check Na at midnight, then morning labs encourage PO intake Visit type - Emergency Visit Emergency Visit: Yes ED Registration Date: 08/15/19 Care time: The patient presented to the Emergency Department on the above date and was hospitalized for further evaluation of their emergent condition. - New Patient This patient is new to me today: Yes Date on this admission: 08/16/19 - Critical Care Critical Care patient: No - Discharge Referral Referred to [facility] Med P.C.: No ATTENDING PHYSICIAN STATEMENT I saw and evaluated the patient. I reviewed the resident's note and discussed the case with the resident. I agree with the resident's findings and plan as documented. SUBJECTIVE: OBJECTIVE: ASSESSMENT AND PLAN:
[2019-08-16 21:41] LABS: CALCIUM 9.2 mg/dL (8.5-10.1); CREATININE 4.5 mg/dL (0.55-1.3); POTASSIUM 4.3 mmol/L (3.5-5.1)
[2019-08-16 21:44] LABS: BLOOD UREA NITROGEN 145.3 mg/dL (7-18)
[2019-08-16] MEDS: SODIUM CHLORIDE 0.45% 1,000 ML IV SCH (21:48)
[2019-08-16] MEDS: HEPARIN NA (PORCINE) 5,000 UNITS/ML 1ML VIAL SQ SCH (23:32)
[2019-08-17] MEDS: HEPARIN NA (PORCINE) 5,000 UNITS/ML 1ML VIAL SQ SCH ×3 (06:54→22:06)
[2019-08-17 07:19] LABS: HEMATOCRIT 33.2 % (32.4-45.2); HEMOGLOBIN 10.7 GM/dL (10.7-15.3); MCH 25.8 pg (25.7-33.7); MCHC 32.2 g/dl (32.0-36.0); MEAN CELL VOLUME 80.2 fl (80-96); MEAN PLT VOLUME 7.8 fl (7.5-11.1); PLATELET COUNT 170 K/MM3 (134-434); RBC 4.14 M/mm3 (3.60-5.2); RDW 15.2 % (11.6-15.6); WHITE BLOOD COUNT 13.5 K/mm3 (4.0-10.0)
[2019-08-17 07:34] LABS: BILIRUBIN,TOTAL 0.4 mg/dL (0.2-1); CALCIUM 8.6 mg/dL (8.5-10.1); CREATININE 3.5 mg/dL (0.55-1.3); MAGNESIUM 2.9 mg/dL (1.8-2.4); PHOSPHOROUS 2.8 mg/dL (2.5-4.9); POTASSIUM 3.7 mmol/L (3.5-5.1); TOT PROT 5.7 g/dl (6.4-8.2)
[2019-08-17 07:36] LABS: BLOOD UREA NITROGEN 129.7 mg/dL (7-18)
--- NOTE | 2019-08-17 12:27 | PN ---
Teaching Attending Note Name of Resident: Tiffany Echevarria ATTENDING PHYSICIAN STATEMENT I saw and evaluated the patient. I reviewed the resident's note and discussed the case with the resident. I agree with the resident's findings and plan as documented. SUBJECTIVE: no fever or chills. has generalized aches. thinks her knees are swollen. no specific location of the pain. OBJECTIVE: NAD, dry MM but better than yesterday CV: RRR, no MRG Lungs: CTAB Abd: obese, 2 layers of pannus. excoriated skin under pannus, with erythema especially on R side. minimal tenderness of Abd in all quadrants to superficial touch Ext: tenderness with touch to her skin over the LE. no edema, no erythema. L calf lateral ulcer, with slough but no discharge ASSESSMENT AND PLAN: 78 y/o lady with h/o HTN, Asthma, OA, obesity, L nephrectomy ( , unknown reason), who has no current medical care and on no meds who presented after she was not able to get up from the floor. she was found to have severe dehydrationand YAEL 1- Severe dehydration 2- YAEL: likely due to volume depletion. 3- Mild Rhabdo 4- metabolic acidosis. lactic acid normalized. renal failure still contributing 5- leukocytosis , no clear source of infection. improved 6- h/o L renal resection 7- L leg and L gluteal stage 2 decubiti 8- H/o Asthma plan: - Cont IVF - NA imporved in an acceptable rate ( < 0.5 meq/dl /hr) - Monitor Bicarb, lower today - repeat lactic - xrays of the knees. - leukocytosis improved with no Abx. monitor . if fever ,or lactic elevation , will get Ct of Abd - declined US - psych consult - monitor BP . no need fro meds at this point
--- NOTE | 2019-08-17 13:36 | PN ---
Physical Exam: SUBJECTIVE: Patient seen and examined. She reports generalized pain and weakness. She reports lower back pain from ulcers. She denies shortness of breath or chest pain. OBJECTIVE: Vital Signs Period Temp Pulse Resp BP Sys/Parr Pulse Ox Last 24 Hr 97.4 F-98.4 F 80-103 20-27 131-152/48-72 100-100 GENERAL: The patient is awake, alert, and fully oriented, in distress. Morbidly obese. HEAD: Normal with no signs of trauma. EYES: PERRL, extraocular movements intact, sclera anicteric, conjunctiva clear. ENT: Ears normal, nares patent, dry mucous membranes. NECK: Trachea midline, full range of motion LUNGS: Clear to auscultation bilaterally, no wheezes HEART: Regular rate and rhythm, no murmur ABDOMEN: Soft, tender to light palpation, especially left side; nondistended, normoactive bowel sounds; rash under pannus BACK: stage 2 sacral ulcer with smaller surrounding ulcers EXTREMITIES: Warm, well-perfused, stage 2 ulcer on left calf; b/l lower extremities tender to touch but less than yesterday NEUROLOGICAL: Cranial nerves II through XII grossly intact. Normal speech. PSYCH: Normal mood, normal affect. SKIN: Warm, dry Laboratory Results - last 24 hr 08/16/19 08/16/19 08/16/19 11:20 14:50 20:45 WBC RBC Hgb Hct MCV MCH MCHC RDW Plt Count MPV Neutrophils % (Manual) 74.8 Band Neutrophils % 6.1 Lymphocytes % (Manual) 12.1 Monocytes % (Manual) 3 L Eosinophils % (Manual) 1.0 D Basophils % (Manual) 0.0 Myelocytes % (Man) 1 D Promyelocytes % (Man) 0 D Blast Cells % (Manual) 0 Metamyelocytes 1 D Hypochromia 0 Platelet Estimate Normal Polychromasia 0 Poikilocytosis 1+ Anisocytosis 0 Microcytosis 0 Macrocytosis 0 Sodium 165 H* 166 H* Potassium 4.3 4.3 Chloride 135 H 136 H Carbon Dioxide 18 L 18 L Anion Gap 11 12 BUN 158.7 H* 145.3 H* Creatinine 5.0 H 4.5 H Est GFR (CKD-EPI)AfAm 8.87 10.07 Est GFR (CKD-EPI)NonAf 7.65 8.69 Random Glucose 100 95 Lactic Acid Calcium 9.2 9.2 Phosphorus Magnesium Total Bilirubin AST ALT Alkaline Phosphatase Total Protein Albumin 08/16/19 08/17/19 08/17/19 20:45 00:05 06:10 WBC 13.5 H RBC 4.14 Hgb 10.7 Hct 33.2 MCV 80.2 MCH 25.8 MCHC 32.2 RDW 15.2 Plt Count 170 D MPV 7.8 Neutrophils % (Manual) Band Neutrophils % Lymphocytes % (Manual) Monocytes % (Manual) Eosinophils % (Manual) Basophils % (Manual) Myelocytes % (Man) Promyelocytes % (Man) Blast Cells % (Manual) Metamyelocytes Hypochromia Platelet Estimate Polychromasia Poikilocytosis Anisocytosis Microcytosis Macrocytosis Sodium 160 H Potassium Chloride Carbon Dioxide Anion Gap BUN Creatinine Est GFR (CKD-EPI)AfAm Est GFR (CKD-EPI)NonAf Random Glucose Lactic Acid 2.0 Calcium Phosphorus Magnesium Total Bilirubin AST ALT Alkaline Phosphatase Total Protein Albumin 08/17/19 06:10 WBC RBC Hgb Hct MCV MCH MCHC RDW Plt Count MPV Neutrophils % (Manual) Band Neutrophils % Lymphocytes % (Manual) Monocytes % (Manual) Eosinophils % (Manual) Basophils % (Manual) Myelocytes % (Man) Promyelocytes % (Man) Blast Cells % (Manual) Metamyelocytes Hypochromia Platelet Estimate Polychromasia Poikilocytosis Anisocytosis Microcytosis Macrocytosis Sodium 156 H Potassium 3.7 Chloride 129 H Carbon Dioxide 15 L Anion Gap 12 BUN 129.7 H* Creatinine 3.5 H Est GFR (CKD-EPI)AfAm 13.65 Est GFR (CKD-EPI)NonAf 11.77 Random Glucose 98 Lactic Acid Calcium 8.6 Phosphorus 2.8 Magnesium 2.9 H Total Bilirubin 0.4 AST 30 ALT 31 Alkaline Phosphatase 70 Total Protein 5.7 L Albumin 2.0 L Active Medications Generic Name Dose Route Start Last Admin Trade Name Freq PRN Reason Stop Dose Admin Albuterol Sulfate 1 amp 08/16/19 17:17 Ventolin 0.083% Nebulizer Soln - NEB Q6H PRN SHORT OF BREATH/WHEEZING Heparin Sodium (Porcine) 5,000 unit 08/16/19 22:00 08/17/19 06:54 Heparin - SQ 5,000 unit TID GISELA Administration Sodium Chloride 1,000 mls @ 125 mls/hr 08/16/19 19:45 08/16/19 21:48 / Normal Saline IV 125 mls/hr ASDIR GISELA Administration ASSESSMENT/PLAN: Ms. Kellogg is a 78y/o female with HTN, asthma, morbid obesity, osteoarthritis, s/ p L nephrectomy who presents following being found on the floor. #hypernatremia -improved by 8 in last 24 hours -1/2 NS 125mL/hr -serial BMPs/Na -nephrology following #YAEL s/p nephrectomy -likely pre-renal but r/o obstruction, U/S refused by pt -bladder scan PRN #stage 2 sacral ulcers -blood cx negative -dressing changes -monitor #mood disorder vs dementia vs other -Pt is non-compliant with instruction and refuses treatment at times. Unsure if there is an organic process occurring. -psych consulted #HTN -non-compliant on meds -monitor #asthma -albuterol PRN DVT Ppx heparin FEN /2 NS 125mL/hr monitor Na encourage PO intake Visit type - Emergency Visit Emergency Visit: Yes ED Registration Date: 08/15/19 Care time: The patient presented to the Emergency Department on the above date and was hospitalized for further evaluation of their emergent condition. - New Patient This patient is new to me today: No - Critical Care Critical Care patient: No - Discharge Referral Referred to [facility] Med P.C.: No ATTENDING PHYSICIAN STATEMENT I saw and evaluated the patient. I reviewed the resident's note and discussed the case with the resident. I agree with the resident's findings and plan as documented. SUBJECTIVE: OBJECTIVE: ASSESSMENT AND PLAN:
--- NOTE | 2019-08-17 16:20 | PN ---
Progress Note, Physician History of Present Illness: Pt seen and examined at bedside. she is awake and alert. she is refusing to eat. - Current Medication List Current Medications: Active Medications Albuterol Sulfate (Ventolin 0.083% Nebulizer Soln -) 1 amp NEB Q6H PRN PRN Reason: SHORT OF BREATH/WHEEZING Heparin Sodium (Porcine) (Heparin -) 5,000 unit SQ TID [facility] Last Admin: 08/17/19 14:49 Dose: 5,000 unit Sodium Chloride (1/2 Normal Saline) 1,000 mls @ 125 mls/hr IV ASDIR [facility] Last Admin: 08/16/19 21:48 Dose: 125 mls/hr - Objective Vital Signs: Vital Signs Temperature 98.2 F 08/17/19 14:00 Pulse Rate 96 H 08/17/19 14:00 Respiratory Rate 20 08/17/19 14:00 Blood Pressure 148/65 08/17/19 14:00 O2 Sat by Pulse Oximetry (%) 100 08/17/19 09:00 Constitutional: Yes: Calm Eyes: Yes: Conjunctiva Clear HENT: Yes: Atraumatic Neck: Yes: Supple Cardiovascular: Yes: S1, S2 Respiratory: Yes: CTA Bilaterally Gastrointestinal: Yes: Soft, Abdomen, Obese Genitourinary: Yes: WNL Musculoskeletal: Yes: Muscle Weakness Edema: Yes Edema: LLE: 1+, RLE: 1+ Psychiatric: Yes: Agitated Labs: CBC, BMP 08/17/19 06:10 08/17/19 06:10 INR, PTT INR 1.24 (0.83-1.09) H 08/15/19 14:00 Problem List - Problems (1) YAEL (acute kidney injury) Code(s): N17.9 - ACUTE KIDNEY FAILURE, UNSPECIFIED (2) Asthma Code(s): J45.909 - UNSPECIFIED ASTHMA, UNCOMPLICATED (3) Dehydration with hypernatremia Code(s): E87.0 - HYPEROSMOLALITY AND HYPERNATREMIA (4) Failure to thrive Code(s): VVP5102 - Qualifiers: Failure to thrive age range: in adult Qualified Code(s): R62.7 - Adult failure to thrive (5) HTN (hypertension) Code(s): I10 - ESSENTIAL (PRIMARY) HYPERTENSION Assessment/Plan Current Medications Generic Name Dose Route Start Last Admin Trade Name Rossq PRN Reason Stop Dose Admin Albuterol Sulfate 1 amp 08/16/19 17:17 Ventolin 0.083% Nebulizer Soln - NEB Q6H PRN SHORT OF BREATH/WHEEZING Heparin Sodium (Porcine) 5,000 unit 08/16/19 22:00 08/17/19 14:49 Heparin - SQ 5,000 unit TID GISELA Administration Sodium Chloride 1,000 mls @ 125 mls/hr 08/16/19 19:45 08/16/19 21:48 1/2 Normal Saline IV 125 mls/hr ASDIR GISELA Administration Impression 1. YAEL 2. hypernatremia 3. metabolic acidosis 4. htn 5. asthma 6. obesity Plan - cont 1/2 ns - renal function is improving - add po sodium bicarb - encourage po intake - psych eval pending - follow renal ultrasound
[2019-08-17] MEDS: SODIUM CHLORIDE 0.45% 1,000 ML IV SCH (21:00)
[2019-08-17] MEDS: SODIUM BICARBONATE 650 MG TABLET PO SCH (22:06)
[2019-08-18] MEDS: HEPARIN NA (PORCINE) 5,000 UNITS/ML 1ML VIAL SQ SCH ×3 (05:56→22:32)
[2019-08-18 06:47] LABS: HEMATOCRIT 32.5 % (32.4-45.2); HEMOGLOBIN 10.6 GM/dL (10.7-15.3); MCHC 32.6 g/dl (32.0-36.0); MEAN CELL VOLUME 79.7 fl (80-96); MEAN PLT VOLUME 7.7 fl (7.5-11.1); PLATELET COUNT 151 K/MM3 (134-434); RBC 4.08 M/mm3 (3.60-5.2); RDW 15.1 % (11.6-15.6); WHITE BLOOD COUNT 10.8 K/mm3 (4.0-10.0)
[2019-08-18 07:09] LABS: BILIRUBIN,TOTAL 0.5 mg/dL (0.2-1); CALCIUM 8.3 mg/dL (8.5-10.1); CREATININE 1.8 mg/dL (0.55-1.3); MAGNESIUM 2.5 mg/dL (1.8-2.4); PHOSPHOROUS 2.5 mg/dL (2.5-4.9); POTASSIUM 3.7 mmol/L (3.5-5.1); TOT PROT 5.4 g/dl (6.4-8.2)
[2019-08-18] MEDS: SODIUM BICARBONATE 650 MG TABLET PO SCH ×2 (10:29→22:32)
--- NOTE | 2019-08-18 14:26 | PN ---
Progress Note (short form) - Note Progress Note: Subjective: No fever or chills. has generalized pain every where and in her abdomen Objective: Vital Signs: Last Vital Signs Temp Pulse Resp BP Pulse Ox 98.7 F 86 22 H 127/68 100 08/18/19 10:00 08/18/19 10:00 08/18/19 10:00 08/18/19 10:00 08/18/19 09:00 Laboratory Results - last 24 hr 08/17/19 08/18/19 08/18/19 16:50 06:00 06:00 WBC 10.8 H RBC 4.08 Hgb 10.6 L Hct 32.5 MCV 79.7 L MCH 26.0 MCHC 32.6 RDW 15.1 Plt Count 151 MPV 7.7 Sodium 155 H 151 H Potassium 3.7 Chloride 125 H Carbon Dioxide 18 L Anion Gap 8 BUN 77.0 H Creatinine 1.8 H Est GFR (CKD-EPI)AfAm 30.49 Est GFR (CKD-EPI)NonAf 26.31 Random Glucose 89 Calcium 8.3 L Phosphorus 2.5 Magnesium 2.5 H Total Bilirubin 0.5 AST 32 ALT 30 Alkaline Phosphatase 68 Total Protein 5.4 L Albumin 2.0 L Physical Exam: NAD, MMM CV: RRR, no MRG Lungs: CTAB Abd: obese, excoriated skin under pannus, with erythema especially on R side. tenderness in all quadrants Ext: tenderness with touch to her skin over the LEs. no edema, no erythema. L calf lateral ulcer, with slough but no discharge ASSESSMENT AND PLAN: 78 y/o lady with h/o HTN, Asthma, OA, obesity, who has no current medical care and on no meds who presented after she was not able to get up from the floor. she was found to have severe dehydrationand YAEL 1- Severe dehydration : improved 2- YAEL: likely due to volume depletion. 3- Mild Rhabdo 4- metabolic acidosis. lactic acid normalized. renal failure still contributing 5- leukocytosis , no clear source of infection. improved 6- h/o L renal resection 7- L leg and L gluteal stage 2 decubiti 8- H/o Asthma plan: - Cont IVF - Monitor Bicarb on NaHco3 - obtain Ct of abd - xrays of the knees. - US showed NL kidneys . patietn claimed sh had L nephrectomy! - psych consult pending - monitor BP . Visit type - Emergency Visit Emergency Visit: Yes ED Registration Date: 08/15/19 Care time: The patient presented to the Emergency Department on the above date and was hospitalized for further evaluation of their emergent condition. - New Patient This patient is new to me today: No - Critical Care Critical Care patient: No
--- NOTE | 2019-08-18 18:53 | PN ---
Progress Note, Physician History of Present Illness: Pt seen and examined at bedside. She is awake and appears comfortable. - Current Medication List Current Medications: Active Medications Albuterol Sulfate (Ventolin 0.083% Nebulizer Soln -) 1 amp NEB Q6H PRN PRN Reason: SHORT OF BREATH/WHEEZING Heparin Sodium (Porcine) (Heparin -) 5,000 unit SQ TID [facility] Last Admin: 08/18/19 14:24 Dose: 5,000 unit Sodium Chloride (1/2 Normal Saline) 1,000 mls @ 125 mls/hr IV ASDIR [facility] Last Admin: 08/17/19 21:00 Dose: 125 mls/hr Sodium Bicarbonate (Sodium Bicarbonate -) 650 mg PO BID [facility] Last Admin: 08/18/19 10:29 Dose: 650 mg - Objective Vital Signs: Vital Signs Temperature 98.1 F 08/18/19 14:00 Pulse Rate 80 08/18/19 14:00 Respiratory Rate 18 08/18/19 14:00 Blood Pressure 123/56 L 08/18/19 14:00 O2 Sat by Pulse Oximetry (%) 100 08/18/19 09:00 Constitutional: Yes: Calm Eyes: Yes: Conjunctiva Clear HENT: Yes: Atraumatic Neck: Yes: Supple Cardiovascular: Yes: S1, S2 Respiratory: Yes: CTA Bilaterally Gastrointestinal: Yes: Soft Genitourinary: Yes: Incontinence Musculoskeletal: Yes: Muscle Weakness Edema: Yes Edema: LLE: Trace, RLE: Trace Neurological: Yes: Oriented Labs: CBC, BMP 08/18/19 06:00 08/18/19 06:00 INR, PTT INR 1.24 (0.83-1.09) H 08/15/19 14:00 Problem List - Problems (1) YAEL (acute kidney injury) Code(s): N17.9 - ACUTE KIDNEY FAILURE, UNSPECIFIED (2) Asthma Code(s): J45.909 - UNSPECIFIED ASTHMA, UNCOMPLICATED (3) Dehydration with hypernatremia Code(s): E87.0 - HYPEROSMOLALITY AND HYPERNATREMIA (4) Failure to thrive Code(s): CCP3361 - Qualifiers: Failure to thrive age range: in adult Qualified Code(s): R62.7 - Adult failure to thrive (5) HTN (hypertension) Code(s): I10 - ESSENTIAL (PRIMARY) HYPERTENSION Assessment/Plan Current Medications Generic Name Dose Route Start Last Admin Trade Name Freq PRN Reason Stop Dose Admin Albuterol Sulfate 1 amp 08/16/19 17:17 Ventolin 0.083% Nebulizer Soln - NEB Q6H PRN SHORT OF BREATH/WHEEZING Heparin Sodium (Porcine) 5,000 unit 08/16/19 22:00 08/18/19 14:24 Heparin - SQ 5,000 unit TID GISELA Administration Sodium Chloride 1,000 mls @ 125 mls/hr 08/16/19 19:45 08/17/19 21:00 1/2 Normal Saline IV 125 mls/hr ASDIR GISELA Administration Sodium Bicarbonate 650 mg 08/17/19 22:00 08/18/19 10:29 Sodium Bicarbonate - PO 650 mg BID GISELA Administration Impression 1. YAEL 2. hypernatremia 3. metabolic acidosis 4. htn 5. asthma 6. obesity Plan - can decrease rate of fluids - repeat labs in am - encourage po intake - 2 kidneys on ultrasound - psych eval
[2019-08-18] MEDS ORDERED: SODIUM CHLORIDE 0.45% 1,000 ML IV SCH (18:54)
[2019-08-19] MEDS: HEPARIN NA (PORCINE) 5,000 UNITS/ML 1ML VIAL SQ SCH ×3 (05:21→21:38)
[2019-08-19 06:52] LABS: BASO % 0.2 % (0-2.0); EOS % 1.9 % (0-4.5); HEMATOCRIT 31.2 % (32.4-45.2); HEMOGLOBIN 10.3 GM/dL (10.7-15.3); LYMPH % 17.4 % (8-40); MCH 26.2 pg (25.7-33.7); MEAN CELL VOLUME 79.2 fl (80-96); MEAN PLT VOLUME 7.8 fl (7.5-11.1); MONO % 13.1 % (3.8-10.2); NEUT % 67.4 % (42.8-82.8); PLATELET COUNT 136 K/MM3 (134-434); RBC 3.94 M/mm3 (3.60-5.2); RDW 15.1 % (11.6-15.6)
[2019-08-19 07:31] LABS: BLOOD UREA NITROGEN 41.5 mg/dL (7-18); CALCIUM 8.1 mg/dL (8.5-10.1); CREATININE 1.1 mg/dL (0.55-1.3); MAGNESIUM 2.1 mg/dL (1.8-2.4); POTASSIUM 3.4 mmol/L (3.5-5.1)
[2019-08-19] MEDS ORDERED: POTASSIUM CHLORIDE TABS 20 MEQ TABLET.ER (FP) PO ONE (08:15)
[2019-08-19] MEDS: SODIUM BICARBONATE 650 MG TABLET PO SCH ×2 (09:22→21:38)
[2019-08-19 10:02] LABS: ANISOCYTOSIS 1+; MACROCYTOSIS 1+
[2019-08-19 11:10] LABS: PLATELET ESTIMATE ADEQUATE
--- NOTE | 2019-08-19 11:19 | CON.PSY ---
Psychiatry Consult Chief Complaint: 78 Year old female with multipler chronic Medical conditions admitted for ? failure to thrive?. Patient seen fror Mental capacity to make decisions, apparantly refusing to go to a [facility]. Patient reports she had bad experience in a local [facility] and refusing to go. - Previous Psychiatric Treatment Outpatient: None Inpatient: None - Previous Substance Abuse Treatment Outpatient: None Inpatient: None - Current Medications Current Medications: Active Medications Albuterol Sulfate (Ventolin 0.083% Nebulizer Soln -) 1 amp NEB Q6H PRN PRN Reason: SHORT OF BREATH/WHEEZING Heparin Sodium (Porcine) (Heparin -) 5,000 unit SQ TID [facility] Last Admin: 08/19/19 05:21 Dose: 5,000 unit Sodium Chloride (1/2 Normal Saline) 1,000 mls @ 100 mls/hr IV ASDIR [facility] Last Admin: 08/18/19 22:32 Dose: 100 mls/hr Sodium Bicarbonate (Sodium Bicarbonate -) 650 mg PO BID [facility] Last Admin: 08/19/19 09:22 Dose: 650 mg - Allergies Allergies: Allergies Allergy/AdvReac Type Severity Reaction Status Date / Time acetaminophen Allergy Difficulty Verified 08/15/19 13:31 [From Darvocet-N 100] Breathing Penicillins Allergy Rash Verified 08/15/19 13:31 propoxyphene napsylate Allergy Difficulty Verified 08/15/19 13:31 [From Darvocet-N 100] Breathing - Current Living Status Usual Living Arrangement: Alone - Current Mental Status Evaluation Appearance: Well Groomed Attitude: Cooperative - Affect Affect: Constrictive Appropriateness: Appropriate to Content - Mood Mood: Euthymic - Speech/Language Expressive: Coherent - Psychomotor Activity Psychomotor Activity: Normal - Thought Process Thought Process: Intact - Thought Content Hallucinations: Absent Delusions: Absent - Self Perception Self Perception: No Impairment - Cognition Attention: Alert Orientation: Time Memory, Immediate Recall: Intact Memory, Short Term: 2/3 Memory, Remote with Promptin/3 - Concentration Serial Sevens Intact: No Simple Calculations Intact: Yes - Abstraction Proverb Interpretation: Intact Judgement: Minimally Impaired - Impulse Control Impulse Control: Good Control - Suicidal Ideation Suicidal Ideation: No - Homicidal Ideation Homicidal Ideation: No Assessment/Plan 1) Patient has the Functional capacity to make decisions at this time.
[2019-08-19] MEDS ORDERED: SODIUM CHLORIDE 1,000 ML IV SCH ×2 (13:30→14:20)
[2019-08-19] MEDS ORDERED: POTASSIUM PHOSPHATE 10 MM in SODIUM CHLORIDE 250 ML IVPB ONE (13:42)
--- NOTE | 2019-08-19 14:20 | PN ---
Progress Note, Physician History of Present Illness: Pt seen and examined at bedside. She denies shortness of breath. - Current Medication List Current Medications: Active Medications Albuterol Sulfate (Ventolin 0.083% Nebulizer Soln -) 1 amp NEB Q6H PRN PRN Reason: SHORT OF BREATH/WHEEZING Gabapentin (Neurontin -) 100 mg PO TID [facility] Heparin Sodium (Porcine) (Heparin -) 5,000 unit SQ TID GISELA Last Admin: 08/19/19 13:14 Dose: 5,000 unit Sodium Chloride (Normal Saline -) 1,000 mls @ 75 mls/hr IV ASDIR GISELA Potassium Phosphate 10 mm/ (Sodium Chloride) 253.3333 mls @ 42 mls/hr IVPB ONCE ONE Stop: 08/19/19 19:43 Sodium Bicarbonate (Sodium Bicarbonate -) 650 mg PO BID [facility] Last Admin: 08/19/19 09:22 Dose: 650 mg - Objective Vital Signs: Vital Signs Temperature 97.8 F 08/19/19 10:00 Pulse Rate 86 08/19/19 10:00 Respiratory Rate 22 H 08/19/19 10:00 Blood Pressure 142/66 08/19/19 10:00 O2 Sat by Pulse Oximetry (%) 100 08/18/19 21:00 Constitutional: Yes: Calm Eyes: Yes: Conjunctiva Clear HENT: Yes: Atraumatic Cardiovascular: Yes: S1, S2 Respiratory: Yes: CTA Bilaterally Gastrointestinal: Yes: Normal Bowel Sounds, Soft, Abdomen, Obese Genitourinary: Yes: WNL Musculoskeletal: Yes: WNL Edema: Yes Edema: LLE: 1+, RLE: 1+ Neurological: Yes: Confusion Psychiatric: Yes: Oriented Labs: CBC, BMP 08/19/19 06:04 08/19/19 06:04 INR, PTT INR 1.24 (0.83-1.09) H 08/15/19 14:00 Problem List - Problems (1) YAEL (acute kidney injury) Code(s): N17.9 - ACUTE KIDNEY FAILURE, UNSPECIFIED (2) Asthma Code(s): J45.909 - UNSPECIFIED ASTHMA, UNCOMPLICATED (3) Dehydration with hypernatremia Code(s): E87.0 - HYPEROSMOLALITY AND HYPERNATREMIA (4) Failure to thrive Code(s): EDY8069 - Qualifiers: Failure to thrive age range: in adult Qualified Code(s): R62.7 - Adult failure to thrive (5) HTN (hypertension) Code(s): I10 - ESSENTIAL (PRIMARY) HYPERTENSION Assessment/Plan Current Medications Generic Name Dose Route Start Last Admin Trade Name Freq PRN Reason Stop Dose Admin Albuterol Sulfate 1 amp 08/16/19 17:17 Ventolin 0.083% Nebulizer Soln - NEB Q6H PRN SHORT OF BREATH/WHEEZING Gabapentin 100 mg 08/19/19 14:00 Neurontin - PO TID GISELA Heparin Sodium (Porcine) 5,000 unit 08/16/19 22:00 08/19/19 13:14 Heparin - SQ 5,000 unit TID GISELA Administration Sodium Chloride 1,000 mls @ 75 mls/hr 08/19/19 13:30 Normal Saline - IV ASDIR GISELA Potassium Phosphate 10 mm/ 253.3333 mls @ 42 mls/hr 08/19/19 13:42 Sodium Chloride IVPB 08/19/19 19:43 ONCE ONE Sodium Bicarbonate 650 mg 08/17/19 22:00 08/19/19 09:22 Sodium Bicarbonate - PO 650 mg BID GISELA Administration Impression 1. YAEL 2. hypernatremia 3. metabolic acidosis 4. htn 5. asthma 6. obesity Plan - decrease fluids further - encourage po intake - renal function is improved - replace potassium and phos - psych eval appreciated
[2019-08-19] MEDS: GABAPENTIN 100 MG CAPSULE (FP) PO SCH ×2 (14:41→21:38)
--- NOTE | 2019-08-19 15:14 | CONSULT ---
Admitting History and Physical - Primary Care Physician PCP: Casimiro Nam - Admission History of Present Illness: Per EMR 78 y/o lady with h/o HTN, Asthma, OA, obesity, who has no current medical care and on no meds who presented after she was not able to get up from the floor. she was found to have severe dehydration and YAEL 1- Severe dehydration : improved 2- YAEL: likely due to volume depletion. 3- Mild Rhabdo 4- metabolic acidosis. lactic acid normalized. renal failure still contributing 5- leukocytosis , no clear source of infection. improved 6- h/o L renal resection 7- L leg and L gluteal stage 2 decubiti 8- H/o Asthma Selected Entries 08/18/19 08/18/19 08/18/19 02:00 06:00 10:00 Breakfast Lunch Supper Temperature 98.9 F 98 F 98.7 F 08/18/19 08/18/19 08/18/19 14:00 18:00 20:00 Breakfast 50% Lunch 50% Supper 0 Temperature 98.1 F 98.8 F 98.5 F 08/19/19 08/19/19 08/19/19 02:00 05:48 10:00 Breakfast Lunch Supper Temperature 98.4 F 98.7 F 97.8 F 08/19/19 11:48 Breakfast NPO Lunch Supper Temperature Laboratory Tests 08/15/19 08/16/19 08/17/19 14:00 11:20 06:10 WBC 15.1 H 16.0 H 13.5 H 08/18/19 08/19/19 06:00 06:04 WBC 10.8 H 10.0 History Source: Patient Limitations to Obtaining History: No Limitations - Past Medical History Cardiovascular: Yes: HTN Pulmonary: Yes: Asthma Renal/: Yes: Renal Inusuff Musculoskeletal: Yes: Osteoarthritis - Past Surgical History Past Surgical History: Yes: Nephrectomy (left) - Smoking History Smoking history: Former smoker Have you smoked in the past 12 months: No - Alcohol/Substance Use Hx Alcohol Use: No History of Substance Use: reports: None - Social History History of Recent Travel: No History - Admission Reason For Visit: FAILURE TO THRIVE - Diagnostics X-ray: Report Reviewed - General Mental Status: Alert and Oriented, Awake and Alert, Able to Follow Commands Attention: Intact Ability to Follow Directions: Excellent Head/Neck Control: WFL - Hearing Hearing: Normal Speech Evaluation - Communication Primary Language: BULGARIAN Communication: Yes: Within Normal Limits Oral Expression Ability: Yes: No Impairment - Speech Production Able to Make Needs Known: Yes: WNL Intelligibility: Yes: WNL - Speech Characteristics Voice Loudness: Normal Voice Pitch: Yes: Normal Voice Phonatory-based Quality: Yes: Normal Speech Pattern: Normal Speech Clarity: < 100% Nasal Resonance: Normal Articulation: Yes: Precise Rate of Speech: Intact - Language/Auditory Comprehension Follows: Yes: 1 Stage Simple Commands, 2 Stage Simple Commands - Language/Verbal Expression Able to Respond to Simple Queries: Yes: WNL Able to Communicate Wants and Needs: Yes: WNL Functional Communication Status: Yes: WNL - Swallow Evaluation/Bedside Assessment Current Nutritional Intake: Regular, Thin Liquids Oral Secretions: Yes: WFL, R/O Candidiasis, Tongue Coated (thick white coating mid dorsum of tongue) Dentition: Yes: Missing Teeth Facial Symmetry at Rest: Symmetrical Facial Symmetry on Retraction: Symmetrical Facial Movement: Controlled Against Resistance Opening: Normal Against Resistance Closing: Normal Pucker Lips: Normal Smile: Normal Lingual Movement: Normal, Symmetric Lingual Speed of Movement: Normal Lingual Movement Strgth Against Opposition: Normal Lingual Movement Characteristics: Normal Velopharyngeal Movement: Normal Laryngeal Elevation: WFL Laryngeal Movement: Able to Palpate Rate of Intake: WFL Bolus Size: WFL Labial Seal: WFL Chewing: Impaired (limited. Pt requesting chopped food and crushed meds) A-P Transit: WFL Timing of Swallow: WFL Coughing/Throat Clear: No (3 oz water test (-)) Recommendations - Speech Evaluation, Impression/Plan Impression: thick white coating mid dorsum of tongue r/o candidiasis. Mastication limited. Pt requesting chopped food and crushed meds - Dysphagia Impressions/Plan Swallowing Skills: WFL (Swallowing intact. Reduced efficiency of mastication sec mkissing dentition) *Silent aspiration: cannot be R/O at bedside - Recommendations Diet Consistency: Other (Trial Chyopped diet.) Medication Administration: Crushed with applesauce Liquids: Thin Liquids Supplement: Ensure
--- NOTE | 2019-08-19 15:59 | PN ---
Physical Exam: SUBJECTIVE: Patient seen and examined. She reports continued generalized pain but has less weakness. She reports still having low appetite as well as dysphagia. She denies shortness of breath, chest pain, nausea, vomiting, fever, or chills. OBJECTIVE: Vital Signs Period Temp Pulse Resp BP Sys/Parr Pulse Ox Last 24 Hr 97.8 F-98.8 F 76-86 18-22 138-146/62-69 100 GENERAL: The patient is awake, alert, and fully oriented, in no acute distress. Morbidly obese. HEAD: Normal with no signs of trauma. EYES: PERRL, extraocular movements intact, sclera anicteric, conjunctiva clear. ENT: Ears normal, nares patent, moist mucous membranes. NECK: Trachea midline, full range of motion LUNGS: Clear to auscultation bilaterally, no wheezes HEART: Regular rate and rhythm, no murmur ABDOMEN: Soft, tender to light palpation, nondistended, normoactive bowel sounds ; rash under pannus less red BACK: stage 2 sacral ulcer with smaller surrounding ulcers EXTREMITIES: Warm, well-perfused, stage 1 ulcer on left calf; b/l lower extremities tender to touch, +1 pitting edema NEUROLOGICAL: Cranial nerves II through XII grossly intact. Normal speech. PSYCH: Normal mood, normal affect. SKIN: Warm, dry no events on tele Laboratory Results - last 24 hr 08/19/19 08/19/19 06:04 06:04 WBC 10.0 RBC 3.94 Hgb 10.3 L Hct 31.2 L MCV 79.2 L MCH 26.2 MCHC 33.0 RDW 15.1 Plt Count 136 MPV 7.8 Absolute Neuts (auto) 6.8 Neutrophils % 67.4 Neutrophils % (Manual) 66.3 Band Neutrophils % 0.0 Lymphocytes % 17.4 D Lymphocytes % (Manual) 26.5 D Monocytes % 13.1 H Monocytes % (Manual) 4 Eosinophils % 1.9 D Eosinophils % (Manual) 3.1 D Basophils % 0.2 Basophils % (Manual) 0.0 Myelocytes % (Man) 0 D Promyelocytes % (Man) 0 Blast Cells % (Manual) 0 Nucleated RBC % 0 Metamyelocytes 0 D Hypochromia 1+ Platelet Estimate Adequate Platelet Comment No clumping noted Polychromasia 1+ Poikilocytosis 0 Anisocytosis 1+ Microcytosis 1+ Macrocytosis 1+ Sodium 148 H Potassium 3.4 L Chloride 121 H Carbon Dioxide 19 L Anion Gap 8 BUN 41.5 H Creatinine 1.1 Est GFR (CKD-EPI)AfAm 55.30 Est GFR (CKD-EPI)NonAf 47.71 Random Glucose 99 Calcium 8.1 L Phosphorus 2.0 L Magnesium 2.1 Active Medications Generic Name Dose Route Start Last Admin Trade Name Freq PRN Reason Stop Dose Admin Albuterol Sulfate 1 amp 08/16/19 17:17 Ventolin 0.083% Nebulizer Soln - NEB Q6H PRN SHORT OF BREATH/WHEEZING Gabapentin 100 mg 08/19/19 14:00 08/19/19 14:41 Neurontin - PO 100 mg TID GISELA Administration Heparin Sodium (Porcine) 5,000 unit 08/16/19 22:00 08/19/19 13:14 Heparin - SQ 5,000 unit TID GISELA Administration Potassium Phosphate 10 mm/ 253.3333 mls @ 42 mls/hr 08/19/19 13:42 Sodium Chloride IVPB 08/19/19 19:43 ONCE ONE Sodium Chloride 1,000 mls @ 50 mls/hr 08/19/19 14:20 08/19/19 14:41 Normal Saline - IV 50 mls/hr ASDIR GISELA Administration Sodium Bicarbonate 650 mg 08/17/19 22:00 08/19/19 09:22 Sodium Bicarbonate - PO 650 mg BID GISELA Administration ASSESSMENT/PLAN: Ms. Kellogg is a 78y/o female with HTN, asthma, morbid obesity, osteoarthritis, s/ p L nephrectomy who presents following being found on the floor. #hypernatremia -improved by 8 in last 24 hours -NS 50mL/hr -nephrology following #YAEL s/p ?nephrectomy -U/S negative -pt reports kidney was removed but imaging shows present #abdominal pain -CT showed cecum thickening and irregularity, recommends colonoscopy later #leg pain -gabapentin trial #stage 2 sacral ulcers #stage 1 left calf ulcer -blood cx negative -dressing changes -wound care consulted #onychomycosis -podiatry consulted #HTN -non-compliant on meds -monitor #asthma -albuterol PRN #non-compliance to medications -psych evaluated pt; pt has capacity DVT Ppx heparin FEN NS 50mL/hr monitor K, Phos encourage PO intake Visit type - Emergency Visit Emergency Visit: Yes ED Registration Date: 08/15/19 Care time: The patient presented to the Emergency Department on the above date and was hospitalized for further evaluation of their emergent condition. - New Patient This patient is new to me today: No - Critical Care Critical Care patient: No - Discharge Referral Referred to [facility] Med [facility].C[facility] No ATTENDING PHYSICIAN STATEMENT I saw and evaluated the patient. I reviewed the resident's note and discussed the case with the resident. I agree with the resident's findings and plan as documented. SUBJECTIVE: OBJECTIVE: ASSESSMENT AND PLAN:
[2019-08-19] MEDS ORDERED: SODIUM CHLORIDE NASAL SPRAY 44 ML BOTTLE NS PRN (16:35)
--- NOTE | 2019-08-19 19:30 | PN ---
Teaching Attending Note Name of Resident: Tiffany Echevarria ATTENDING PHYSICIAN STATEMENT I saw and evaluated the patient. I reviewed the resident's note and discussed the case with the resident. I agree with the resident's findings and plan as documented. SUBJECTIVE: generalized pain continues OBJECTIVE: NAD, MMM CV: RRR, no MRG Lungs: CTAB Abd: obese, excoriated skin under pannus,. tenderness in all quadrants Ext: tenderness with touch to her skin over the LEs. no edema, no erythema. L calf lateral ulcer, with slough but no discharge Bilateral gluteal stage 2 decub ulcers. no discharge ASSESSMENT AND PLAN: 78 y/o lady with h/o HTN, Asthma, OA, obesity, who has no current medical care and on no meds who presented after she was not able to get up from the floor. she was found to have severe dehydrationand YAEL 1- Severe dehydration: improved 2- YAEL: likely due to volume depletion. 3- Mild Rhabdo 4- metabolic acidosis. lactic acid normalized. renal failure still contributing 5- leukocytosis , no clear source of infection. improved 6- h/o L renal resection 7- L leg and L gluteal stage 2 decubiti 8- H/o Asthma plan: - Cont IVF - Monitor Bicarb on NaHco3 . acidosis improved - Ct of abd noted. will consult GI - xrays of the knees. - psych consult appreciated - monitor BP . it it remains elevated , will start low dose medication - heparin sq
[2019-08-20] MEDS: HEPARIN NA (PORCINE) 5,000 UNITS/ML 1ML VIAL SQ SCH ×3 (06:40→22:31)
[2019-08-20] MEDS: GABAPENTIN 100 MG CAPSULE (FP) PO SCH ×3 (06:40→22:31)
[2019-08-20 06:46] LABS: BASO % 0.1 % (0-2.0); EOS % 1.4 % (0-4.5); HEMATOCRIT 29.6 % (32.4-45.2); HEMOGLOBIN 9.8 GM/dL (10.7-15.3); LYMPH % 18.6 % (8-40); MCH 26.5 pg (25.7-33.7); MCHC 33.2 g/dl (32.0-36.0); MEAN CELL VOLUME 79.7 fl (80-96); MEAN PLT VOLUME 8.3 fl (7.5-11.1); MONO % 14.2 % (3.8-10.2); NEUT % 65.7 % (42.8-82.8); PLATELET COUNT 129 K/MM3 (134-434); RBC 3.71 M/mm3 (3.60-5.2); RDW 14.9 % (11.6-15.6); WHITE BLOOD COUNT 10.1 K/mm3 (4.0-10.0)
[2019-08-20 07:16] LABS: BLOOD UREA NITROGEN 25.7 mg/dL (7-18); CALCIUM 7.9 mg/dL (8.5-10.1); CREATININE 0.9 mg/dL (0.55-1.3); MAGNESIUM 1.9 mg/dL (1.8-2.4); PHOSPHOROUS 2.1 mg/dL (2.5-4.9); POTASSIUM 3.6 mmol/L (3.5-5.1)
--- NOTE | 2019-08-20 08:18 | CONSULT ---
Consult - History of Present Illness Chief Complaint: Patient presents with painful dystrophic mycotic toenails in shoes and ambulation - Past Medical History Cardio/Vascular: Yes: HTN Pulmonary: Yes: Asthma Renal/: Yes: Renal Inusuff Musculoskeletal: Yes: Osteoarthritis - Past Surgical History Past Surgical History: Yes: Nephrectomy (left) - Alcohol/Substance Use Hx Alcohol Use: No History of Substance Use: reports: None - Smoking History Smoking history: Former smoker Have you smoked in the past 12 months: No - Social History Usual Living Arrangement: Alone History of Recent Travel: No Home Medications - Allergies Allergies/Adverse Reactions: Allergies Allergy/AdvReac Type Severity Reaction Status Date / Time acetaminophen Allergy Difficulty Verified 08/15/19 13:31 [From Darvocet-N 100] Breathing Penicillins Allergy Rash Verified 08/15/19 13:31 propoxyphene napsylate Allergy Difficulty Verified 08/15/19 13:31 [From Darvocet-N 100] Breathing Physical Exam Vital Signs: Vital Signs Temperature 98.7 F 08/20/19 06:00 Pulse Rate 88 08/20/19 06:00 Respiratory Rate 20 08/20/19 06:00 Blood Pressure 130/60 08/20/19 06:00 O2 Sat by Pulse Oximetry (%) 98 08/19/19 21:00 Labs: CBC, BMP 08/20/19 05:52 08/20/19 05:52 Assessment/Plan wILL follow to debride nails
[2019-08-20 09:56] LABS: ANISOCYTOSIS 1+; MACROCYTOSIS 1+; OVALOCYTE 1+
[2019-08-20] MEDS: SODIUM BICARBONATE 650 MG TABLET PO SCH ×2 (10:23→22:30)
[2019-08-20 11:07] LABS: PLATELET ESTIMATE ADEQUATE
--- NOTE | 2019-08-20 11:21 | CONSULT ---
- Consultation REQUESTING PROVIDER: Cyril LARA CONSULT REQUEST: We have been asked to surgically evaluate this patient for evaluation of wounds of her back ?? PCP:Casimiro Nam HISTORY OF PRESENT ILLNESS: 78 y/o female w/multiple comorbidities found " down " at home after having difficulty ambulating and falling. PMHx: HTN/asthma/arthritis PSHx: nephrectomy Allergies Allergy/AdvReac Type Severity Reaction Status Date / Time acetaminophen Allergy Difficulty Verified 08/15/19 13:31 [From Darvocet-N 100] Breathing Penicillins Allergy Rash Verified 08/15/19 13:31 propoxyphene napsylate Allergy Difficulty Verified 08/15/19 13:31 [From Darvocet-N 100] Breathing PHYSICAL EXAM: GENERAL: Awake, alert, and fully oriented, in slight acute distress. HEAD: Normal with no signs of trauma. EYES: PERRL, sclera anicteric, conjunctiva clear. NECK: Normal ROM, supple without lymphadenopathy, JVD, or masses. ABDOMEN: Soft, nontender, not distended, normoactive bowel sounds, no guarding, no rebound, no masses. No organomegaly. MUSCULOSKELETAL: Normal ROM at all joints. No bony deformities; there is tenderness. No CVA tenderness. UPPER EXTREMITIES: 2+ pulses, warm, well-perfused. No cyanosis. Cap refill <2 seconds. No peripheral edema. LOWER EXTREMITIES: 2+ pulses, warm, well-perfused. No calf tenderness. No peripheral edema. NEUROLOGICAL: Normal speech, gait not observed. PSYCH: Cooperative. Good eye contact. Appropriate mood and affect. SKIN: Excoriated and superficial sloughing of the skin of both posterior thighs/ perineum and sacrum c/w Stage II ulcers; no infection.. Vital Signs Temperature 97.6 F 08/20/19 10:00 Pulse Rate 86 08/20/19 10:00 Respiratory Rate 20 08/20/19 10:00 Blood Pressure 140/72 08/20/19 10:00 O2 Sat by Pulse Oximetry (%) 98 08/20/19 09:00 Lab Results WBC 10.1 K/mm3 (4.0-10.0) H 08/20/19 05:52 RBC 3.71 M/mm3 (3.60-5.2) 08/20/19 05:52 Hgb 9.8 GM/dL (10.7-15.3) L 08/20/19 05:52 Hct 29.6 % (32.4-45.2) L 08/20/19 05:52 MCV 79.7 fl (80-96) L 08/20/19 05:52 MCHC 33.2 g/dl (32.0-36.0) 08/20/19 05:52 RDW 14.9 % (11.6-15.6) 08/20/19 05:52 Plt Count 129 K/MM3 (134-434) L 08/20/19 05:52 Sodium 147 mmol/L (136-145) H 08/20/19 05:52 Potassium 3.6 mmol/L (3.5-5.1) 08/20/19 05:52 Chloride 121 mmol/L (98-107) H 08/20/19 05:52 Carbon Dioxide 19 mmol/L (21-32) L 08/20/19 05:52 Anion Gap 8 MMOL/L (8-16) 08/20/19 05:52 BUN 25.7 mg/dL (7-18) H 08/20/19 05:52 Creatinine 0.9 mg/dL (0.55-1.3) 08/20/19 05:52 Random Glucose 95 mg/dL (74-106) 08/20/19 05:52 Calcium 7.9 mg/dL (8.5-10.1) L 08/20/19 05:52 INR 1.24 (0.83-1.09) H 08/15/19 14:00 IMP: Stage II skin ulceration PLAN: Prevent further breakdown; wounds can be dressed w/Versatel as needed; keep patient off her side; will f/u prn. Francisco Casiano MD FACS
--- NOTE | 2019-08-20 12:51 | PN ---
Physical Exam: SUBJECTIVE: Patient seen and examined. Pt is eating. She reports generalized pain and intermittent shortness of breath. OBJECTIVE: Vital Signs Period Temp Pulse Resp BP Sys/Parr Pulse Ox Last 24 Hr 97.6 F-99 F 71-88 19-20 127-149/48-77 98-98 GENERAL: The patient is awake, alert, and fully oriented, in no acute distress. Morbidly obese. HEAD: Normal with no signs of trauma. EYES: PERRL, extraocular movements intact, conjunctiva clear. ENT: Ears normal, nares patent, moist mucous membranes. NECK: Trachea midline, full range of motion LUNGS: Clear to auscultation bilaterally, no wheezes HEART: Regular rate and rhythm, no murmur ABDOMEN: Soft, tender to light palpation, nondistended, normoactive bowel sounds ; rash under pannus clearing, small areas of skin breakdown on underside of pannus BACK: stage 2 sacral ulcer with smaller surrounding ulcers EXTREMITIES: Warm, well-perfused, stage 1 ulcer on left calf; b/l lower extremities tender to touch, +1 pitting edema NEUROLOGICAL: Cranial nerves II through XII grossly intact. Normal speech. PSYCH: Normal mood, normal affect. SKIN: Warm, dry no events on tele Laboratory Results - last 24 hr 08/20/19 08/20/19 05:52 05:52 WBC 10.1 H RBC 3.71 Hgb 9.8 L Hct 29.6 L MCV 79.7 L MCH 26.5 MCHC 33.2 RDW 14.9 Plt Count 129 L MPV 8.3 Absolute Neuts (auto) 6.6 Neutrophils % 65.7 Neutrophils % (Manual) 64.9 Band Neutrophils % 3.1 Lymphocytes % 18.6 Lymphocytes % (Manual) 13.4 D Monocytes % 14.2 H Monocytes % (Manual) 16 H D Eosinophils % 1.4 Eosinophils % (Manual) 2.1 Basophils % 0.1 Basophils % (Manual) 0.0 Myelocytes % (Man) 0 Promyelocytes % (Man) 0 Blast Cells % (Manual) 0 Nucleated RBC % 0 Metamyelocytes 0 Hypochromia 0 Platelet Estimate Adequate Platelet Comment No clumping noted Polychromasia 1+ Poikilocytosis 0 Anisocytosis 1+ Microcytosis 1+ Macrocytosis 1+ Ovalocytes 1+ Sodium 147 H Potassium 3.6 Chloride 121 H Carbon Dioxide 19 L Anion Gap 8 BUN 25.7 H Creatinine 0.9 Est GFR (CKD-EPI)AfAm 70.48 Est GFR (CKD-EPI)NonAf 60.81 Random Glucose 95 Calcium 7.9 L Phosphorus 2.1 L Magnesium 1.9 Iron 34 L TIBC 151 L Iron Saturation 22 Unsaturated IBC 117 L Ferritin 501.3 H Active Medications Generic Name Dose Route Start Last Admin Trade Name Freq PRN Reason Stop Dose Admin Albuterol Sulfate 1 amp 08/16/19 17:17 Ventolin 0.083% Nebulizer Soln - NEB Q6H PRN SHORT OF BREATH/WHEEZING Gabapentin 100 mg 08/19/19 14:00 08/20/19 06:40 Neurontin - PO 100 mg TID GISELA Administration Heparin Sodium (Porcine) 5,000 unit 08/16/19 22:00 08/20/19 06:40 Heparin - SQ 5,000 unit TID GISELA Administration Sodium Chloride 1,000 mls @ 50 mls/hr 08/19/19 14:20 08/19/19 14:41 Normal Saline - IV 50 mls/hr ASDIR GISELA Administration Sodium Bicarbonate 650 mg 08/17/19 22:00 08/20/19 10:23 Sodium Bicarbonate - PO 650 mg BID GISELA Administration Sodium Chloride 2 spray 08/19/19 16:35 08/19/19 17:43 [place] - NS 2 spray TID PRN Administration NASAL CONGESTION ASSESSMENT/PLAN: Ms. Kellogg is a 78y/o female with HTN, asthma, morbid obesity, osteoarthritis, s/ p L nephrectomy who presents following being found on the floor. #abdominal pain -CT showed cecum thickening and irregularity, cannot r/o malignancy- needs colonoscopy -GI consulted #hypernatremia, improving -NS 50mL/hr -nephrology following #hypophosphatemia -replete -monitor #b/l leg pain -gabapentin trial 100mg TID #stage 2 sacral ulcers #stage 1 left calf ulcer -blood cx negative -surgery consulted- Versatel dressing #onychomycosis -podiatry following- will debride tomorrow #HTN -non-compliant on meds -monitor #asthma -albuterol PRN #YAEL, resolved -U/S negative -pt reports kidney was removed but imaging shows present #non-compliance to medications -psych evaluated pt; pt has capacity DVT Ppx heparin FEN NS 50mL/hr monitor Phos encourage PO intake dispo transfer to med/surg Visit type - Emergency Visit Emergency Visit: Yes ED Registration Date: 08/15/19 Care time: The patient presented to the Emergency Department on the above date and was hospitalized for further evaluation of their emergent condition. - New Patient This patient is new to me today: No - Critical Care Critical Care patient: No - Discharge Referral Referred to [facility] No ATTENDING PHYSICIAN STATEMENT I saw and evaluated the patient. I reviewed the resident's note and discussed the case with the resident. I agree with the resident's findings and plan as documented. SUBJECTIVE: OBJECTIVE: ASSESSMENT AND PLAN:
[2019-08-20] MEDS ORDERED: POTASSIUM PHOSPHATE 10 MM in SODIUM CHLORIDE 250 ML IVPB ONE (13:00)
--- NOTE | 2019-08-20 13:59 | PN ---
Progress Note, Physician History of Present Illness: Pt seen and examined at bedside. She is awake and alert. She denies shortness of breath. - Current Medication List Current Medications: Active Medications Albuterol Sulfate (Ventolin 0.083% Nebulizer Soln -) 1 amp NEB Q6H PRN PRN Reason: SHORT OF BREATH/WHEEZING Gabapentin (Neurontin -) 100 mg PO TID GISELA Last Admin: 08/20/19 06:40 Dose: 100 mg Heparin Sodium (Porcine) (Heparin -) 5,000 unit SQ TID GISELA Last Admin: 08/20/19 06:40 Dose: 5,000 unit Sodium Chloride (Normal Saline -) 1,000 mls @ 50 mls/hr IV ASDIR GISELA Last Admin: 08/19/19 14:41 Dose: 50 mls/hr Potassium Phosphate 10 mm/ (Sodium Chloride) 253.3333 mls @ 42 mls/hr IVPB ONCE ONE Stop: 08/20/19 19:01 Sodium Bicarbonate (Sodium Bicarbonate -) 650 mg PO BID GISELA Last Admin: 08/20/19 10:23 Dose: 650 mg Sodium Chloride ([place] Nasal [place] -) 2 spray NS TID PRN PRN Reason: NASAL CONGESTION Last Admin: 08/19/19 17:43 Dose: 2 spray - Objective Vital Signs: Vital Signs Temperature 97.6 F 08/20/19 10:00 Pulse Rate 86 08/20/19 10:00 Respiratory Rate 20 08/20/19 10:00 Blood Pressure 140/72 08/20/19 10:00 O2 Sat by Pulse Oximetry (%) 98 08/20/19 09:00 Constitutional: Yes: Calm Eyes: Yes: Conjunctiva Clear HENT: Yes: Atraumatic Neck: Yes: Supple Cardiovascular: Yes: S1, S2 Respiratory: Yes: CTA Bilaterally Gastrointestinal: Yes: Soft Genitourinary: Yes: WNL Musculoskeletal: Yes: WNL Edema: Yes Edema: LLE: Trace, RLE: Trace Neurological: Yes: Oriented Psychiatric: Yes: Oriented Labs: CBC, BMP 08/20/19 05:52 08/20/19 05:52 INR, PTT INR 1.24 (0.83-1.09) H 08/15/19 14:00 Problem List - Problems (1) YAEL (acute kidney injury) Code(s): N17.9 - ACUTE KIDNEY FAILURE, UNSPECIFIED (2) Asthma Code(s): J45.909 - UNSPECIFIED ASTHMA, UNCOMPLICATED (3) Dehydration with hypernatremia Code(s): E87.0 - HYPEROSMOLALITY AND HYPERNATREMIA (4) Failure to thrive Code(s): BYL1916 - Qualifiers: Failure to thrive age range: in adult Qualified Code(s): R62.7 - Adult failure to thrive (5) HTN (hypertension) Code(s): I10 - ESSENTIAL (PRIMARY) HYPERTENSION Assessment/Plan Current Medications Generic Name Dose Route Start Last Admin Trade Name Freq PRN Reason Stop Dose Admin Albuterol Sulfate 1 amp 08/16/19 17:17 Ventolin 0.083% Nebulizer Soln - NEB Q6H PRN SHORT OF BREATH/WHEEZING Gabapentin 100 mg 08/19/19 14:00 08/20/19 06:40 Neurontin - PO 100 mg TID GISELA Administration Heparin Sodium (Porcine) 5,000 unit 08/16/19 22:00 08/20/19 06:40 Heparin - SQ 5,000 unit TID GISELA Administration Sodium Chloride 1,000 mls @ 50 mls/hr 08/19/19 14:20 08/19/19 14:41 Normal Saline - IV 50 mls/hr ASDIR GISELA Administration Potassium Phosphate 10 mm/ 253.3333 mls @ 42 mls/hr 08/20/19 13:00 Sodium Chloride IVPB 08/20/19 19:01 ONCE ONE Sodium Bicarbonate 650 mg 08/17/19 22:00 08/20/19 10:23 Sodium Bicarbonate - PO 650 mg BID GISELA Administration Sodium Chloride 2 spray 08/19/19 16:35 08/19/19 17:43 [place] Nasal [place] - NS 2 spray TID PRN Administration NASAL CONGESTION Impression 1. YAEL 2. hypernatremia 3. metabolic acidosis 4. htn 5. asthma 6. 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
[2019-08-20] MEDS ORDERED: SODIUM CHLORIDE 0.45% 1,000 ML IV SCH (14:00)
--- NOTE | 2019-08-20 14:53 | PN ---
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
--- NOTE | 2019-08-20 15:04 | PN ---
Teaching Attending Note Name of Resident: Tiffany Echevarria ATTENDING PHYSICIAN STATEMENT I saw and evaluated the patient. I reviewed the resident's note and discussed the case with the resident. I agree with the resident's findings and plan as documented. SUBJECTIVE: cont to have generalized pain . no fever or chills. walked with PT . tolerated her food OBJECTIVE: NAD, MMM CV: RRR, no MRG Lungs: CTAB Abd: obese, excoriated skin under pannus,improved. tenderness in all quadrants even to light touch Ext: tenderness with touch to her skin over the LEs. no edema, no erythema. L calf lateral ulcer, with slough but no discharge decubiti were not examined today ASSESSMENT AND PLAN: 78 y/o lady with h/o HTN, Asthma, OA, obesity, who has no current medical care and on no meds who presented after she was not able to get up from the floor. she was found to have severe dehydration and YAEL 1- Severe dehydration: improved 2- YAEL: likely due to volume depletion.Improved 3- Mild Rhabdo 4- metabolic acidosis. lactic acid normalized. renal failure still contributing 5- leukocytosis , no clear source of infection. improved 6- h/o L renal resection 7- L leg and L gluteal stage 2 decubiti 8- H/o Asthma 9- microcytic anemia Plan: - Cont IVF - Bicarb improved . cont on sodium bicarb - GI consult for thickening and irregularity in cecum .r/o colon cancer . Recs pending - iron studies do not indicate iron def. microcytic anemia might be due to ACD. repeat iron studies and further w/u as out pt - xrays of the knees pending . will call - monitor BP. - heparin sq - replace Phos HLOC
[2019-08-20] MEDS ORDERED: SODIUM CHLORIDE NASAL SPRAY 44 ML BOTTLE NS PRN (17:30)
[2019-08-20] MEDS ORDERED: PEG 3350/NA SULF BICARB CL/KCL 4000 ML SOLN.RECON PO ONE (17:46)
--- NOTE | 2019-08-20 17:57 | CON.GI ---
Consult Consult Specialty:: GI Referred by:: Hospitalist service Reason for Consultation:: Abnormal finding: abnormal appearing cecum on CT scan - History of Present Illness Chief Complaint: S/P fall at home History of Present Illness: 78F admitted having been found by neighbor s/p fall at home. Had complained of abdominal discomfort. CT scan was performed revealing thickened/irregular cecum. Improving renal insufficiency. She denies fevers chills. There has been no rectal bleeding or melena. She did describe some diarrhea earlier this month. There is no significant diarrhea currently. She believes that she had a colonoscopy remotely, possibly 20 years ago that was ok. There is no family history of colorectal cancer. - History Source History Provided By: Patient, Medical Record - Past Medical History Cardio/Vascular: Yes: HTN, Murmur Pulmonary: Yes: Asthma Renal/: Yes: Renal Inusuff Musculoskeletal: Yes: Osteoarthritis - Past Surgical History Past Surgical History: Yes: Nephrectomy (left) - Alcohol/Substance Use Hx Alcohol Use: No History of Substance Use: reports: None - Smoking History Smoking history: Former smoker Have you smoked in the past 12 months: No - Social History Usual Living Arrangement: Alone () Place of : [facility] History of Recent Travel: No Home Medications - Allergies Allergies/Adverse Reactions: Allergies Allergy/AdvReac Type Severity Reaction Status Date / Time acetaminophen Allergy Difficulty Verified 08/15/19 13:31 [From Darvocet-N 100] Breathing Penicillins Allergy Rash Verified 08/15/19 13:31 propoxyphene napsylate Allergy Difficulty Verified 08/15/19 13:31 [From Darvocet-N 100] Breathing Family Medical History Other Family History: Father: : heart failure. Mother: : SBO. 1 daughter, 1 son: healthy. No family history of colorectal cancer or other GI mlaignancy Review of Systems - Review of Systems Constitutional: denies: Chills Respiratory: denies: Cough, SOB Gastrointestinal: reports: Abdominal Pain, Constipation (intermittently), Diarrhea (resolved). denies: Melena, Rectal Bleeding Physical Exam-GI Vital Signs: Vital Signs Temperature 98 F 08/20/19 14:31 Pulse Rate 81 08/20/19 14:31 Respiratory Rate 20 08/20/19 14:31 Blood Pressure 135/70 08/20/19 14:31 O2 Sat by Pulse Oximetry (%) 98 12/17/19 09:00 Constitutional: Yes: Calm Eyes: No: Sclera Icterus Cardiovascular: Yes: Regular Rate and Rhythm Respiratory: Yes: CTA Bilaterally Gastrointestinal Inspection: Yes: Other (Large pannus). No: Distention, Scars ...Auscultate: Yes: Normoactive Bowel Sounds ...Palpate: Yes: Soft ...Percussion: No: Tympanitic Edema: No (No LE edema) Neurological: Yes: Alert Labs: CBC, BMP 08/20/19 05:52 08/20/19 05:52 INR, PTT INR 1.24 (0.83-1.09) H 08/15/19 14:00 Problem List - Problems (1) Abnormal CT of the abdomen Assessment/Plan: To further evaluate abnormal cecal finding noted on CT scan, discussed colonoscopy with Ms. Kellogg. Discussed potential risks of the procedure like but not limited to bleeding, perforation requiring surgery to repair, infection, sedation medication effects all of which could be potentially life threatening. She has agreeed to the procedure. NPO after midnight except meds AM Labs Code(s): R93.5 - ABN FINDINGS ON DX IMAGING OF [facility] RETROPERITON
[2019-08-21] MEDS: GABAPENTIN 100 MG CAPSULE (FP) PO SCH ×3 (06:20→21:24)
[2019-08-21 07:50] LABS: BASO % 0.3 % (0-2.0); HEMOGLOBIN 9.5 GM/dL (10.7-15.3); LYMPH % 20.6 % (8-40); MCH 26.6 pg (25.7-33.7); MCHC 33.7 g/dl (32.0-36.0); MEAN CELL VOLUME 78.8 fl (80-96); MEAN PLT VOLUME 8.2 fl (7.5-11.1); MONO % 12.6 % (3.8-10.2); NEUT % 64.5 % (42.8-82.8); PLATELET COUNT 130 K/MM3 (134-434); RBC 3.56 M/mm3 (3.60-5.2); RDW 15.1 % (11.6-15.6); WHITE BLOOD COUNT 8.7 K/mm3 (4.0-10.0)
[2019-08-21 07:54] LABS: ALBUMIN 1.8 g/dl (3.4-5.0); BILIRUBIN,TOTAL 0.3 mg/dL (0.2-1); BLOOD UREA NITROGEN 13.9 mg/dL (7-18); CALCIUM 7.7 mg/dL (8.5-10.1); CREATININE 0.9 mg/dL (0.55-1.3); MAGNESIUM 1.7 mg/dL (1.8-2.4); PHOSPHOROUS 2.4 mg/dL (2.5-4.9); POTASSIUM 3.6 mmol/L (3.5-5.1)
[2019-08-21] MEDS ORDERED: MAGNESIUM SULF 50% (8.12 MEQ/2 ML-1 GM VIAL) IVPB ONE (09:34)
--- NOTE | 2019-08-21 09:36 | PN ---
Teaching Attending Note Name of Resident: Tiffany Echevarria ATTENDING PHYSICIAN STATEMENT I saw and evaluated the patient. I reviewed the resident's note and discussed the case with the resident. I agree with the resident's findings and plan as documented. SUBJECTIVE: Patient is comfortable with no acute distress. Vital Signs Temperature 99.7 F H 08/21/19 06:00 Pulse Rate 83 08/21/19 06:00 Respiratory Rate 20 08/21/19 06:00 Blood Pressure 126/63 08/21/19 06:00 O2 Sat by Pulse Oximetry (%) 99 08/20/19 21:00 GENERAL: The patient is awake, alert, and fully oriented, in no acute distress. HEAD: Normal with no signs of trauma. EYES: PERRL, extraocular movements intact, sclera anicteric, conjunctiva clear. ENT: Ears normal, oropharynx clear without exudates, moist mucous membranes. NECK: Trachea midline, full range of motion, supple. LUNGS: Breath sounds equal, clear to auscultation bilaterally, no wheezes, no crackles, no accessory muscle use. HEART: Regular rate and rhythm, S1, S2 without murmur, rub or gallop. ABDOMEN: Soft, nontender, nondistended, normoactive bowel sounds, no guarding, no rebound, no hepatosplenomegaly, no masses. EXTREMITIES: 2+ pulses, warm, well-perfused, no edema. NEUROLOGICAL: Cranial nerves II through XII grossly intact. Normal speech, gait not observed. PSYCH: Normal mood, normal affect. SKIN: Warm, dry, normal turgor, no rashes or lesions noted CBCD WBC 8.7 K/mm3 (4.0-10.0) 08/21/19 06:35 RBC 3.56 M/mm3 (3.60-5.2) L 08/21/19 06:35 Hgb 9.5 GM/dL (10.7-15.3) L 08/21/19 06:35 Hct 28.0 % (32.4-45.2) L 08/21/19 06:35 MCV 78.8 fl (80-96) L 08/21/19 06:35 MCHC 33.7 g/dl (32.0-36.0) 08/21/19 06:35 RDW 15.1 % (11.6-15.6) 08/21/19 06:35 Plt Count 130 K/MM3 (134-434) L 08/21/19 06:35 MPV 8.2 fl (7.5-11.1) 08/21/19 06:35 CMP Sodium 145 mmol/L (136-145) 08/21/19 06:35 Potassium 3.6 mmol/L (3.5-5.1) 08/21/19 06:35 Chloride 116 mmol/L (98-107) H 08/21/19 06:35 Carbon Dioxide 22 mmol/L (21-32) 08/21/19 06:35 Anion Gap 7 MMOL/L (8-16) L 08/21/19 06:35 BUN 13.9 mg/dL (7-18) 08/21/19 06:35 Creatinine 0.9 mg/dL (0.55-1.3) 08/21/19 06:35 Random Glucose 97 mg/dL (74-106) 08/21/19 06:35 Calcium 7.7 mg/dL (8.5-10.1) L 08/21/19 06:35 Total Bilirubin 0.3 mg/dL (0.2-1) 08/21/19 06:35 AST 31 U/L (15-37) 08/21/19 06:35 ALT 32 U/L (13-61) 08/21/19 06:35 Alkaline Phosphatase 62 U/L (45-117) 08/21/19 06:35 Total Protein 5.0 g/dl (6.4-8.2) L 08/21/19 06:35 Albumin 1.8 g/dl (3.4-5.0) L 08/21/19 06:35 CARDIAC ENZYMES Creatine Kinase 488 U/L (26-192) H 08/16/19 05:00 Troponin I < 0.02 ng/ml (0.00-0.05) 08/16/19 05:00 Current Medications Generic Name Dose Route Start Last Admin Trade Name Freq PRN Reason Stop Dose Admin Albuterol Sulfate 1 amp 08/20/19 17:30 Ventolin 0.083% Nebulizer Soln - NEB Q6H PRN SHORT OF BREATH/WHEEZING Gabapentin 100 mg 08/20/19 22:00 08/21/19 06:20 Neurontin - PO 100 mg TID GISELA Administration Heparin Sodium (Porcine) 5,000 unit 08/20/19 22:00 08/20/19 22:31 Heparin - SQ 5,000 unit TID GISELA Administration Sodium Chloride 1,000 mls @ 50 mls/hr 08/20/19 14:00 08/20/19 14:39 1/2 Normal Saline IV 08/21/19 13:59 50 mls/hr ASDIR GISELA Administration Magnesium Sulfate 1 gm 08/21/19 09:34 Magnesium Sulfate IVPB 08/21/19 09:35 ONCE ONE Sodium Bicarbonate 650 mg 08/20/19 22:00 08/20/19 22:30 Sodium Bicarbonate - PO 650 mg BID GISELA Administration Sodium Chloride 2 spray 08/20/19 17:30 [place] Nasal [place] - NS TID PRN NASAL CONGESTION Ct of the abdomen: thickening and irregularities of the cecum of uncertain etiology. aNEOPLASTIC PROCESS CANNOT BE EXCLUDED. Assessment and plan: Patient is a 78yo female with PMHx of HTN, Asthma, OA, obesity, who has no current medical care and on no meds who presented after she was not able to get up from the floor. she was found to have severe dehydration and YAEL # Severe dehydration: improved # YAEL: likely due to volume depletion.Improved # Mild Rhabdo Cont IVF with Bicarb. # metabolic acidosis. lactic acid normalized. renal failure still contributing # leukocytosis , no clear source of infection. improved # h/o L renal resection # L leg and L gluteal stage 2 decubiti # H/o Asthma # microcytic anemia - - GI consult for thickening and irregularity in cecum .r/o colon cancer . Gi recommending colonoscopy - iron studies do not indicate iron def. microcytic anemia might be due to ACD. repeat iron studies and further w/u as out pt - DVt px: heparin sq - replace Phos prn
[2019-08-21] MEDS ORDERED: POTASSIUM PHOSPHATE 10 MM in SODIUM CHLORIDE 250 ML IVPB ONE (10:30)
[2019-08-21] MEDS: SODIUM BICARBONATE 650 MG TABLET PO SCH ×2 (10:46→21:24)
--- NOTE | 2019-08-21 12:05 | PN ---
Progress Note, REHABILITATION ATTENDANT - Note Progress Note: Selected Entries 08/19/19 08/19/19 08/20/19 15:40 18:43 01:00 Breakfast Diet Tolerated Lunch 75% Supper 75% Temperature 99 F 08/20/19 08/20/19 08/20/19 06:00 09:47 10:00 Breakfast 75% Diet Tolerated Well Lunch Supper Temperature 98.7 F 97.6 F 08/20/19 14:31 Breakfast Diet Tolerated Lunch 75% Supper Temperature 98 F Laboratory Tests 08/19/19 08/20/19 06:04 05:52 WBC 10.0 10.1 H Selected Entries 08/20/19 08/20/19 08/20/19 01:00 06:00 09:47 Breakfast 75% Lunch Supper Temperature 99 F 98.7 F 08/20/19 08/20/19 08/20/19 10:00 14:31 18:00 Breakfast Lunch 75% Supper 75% Temperature 99.0 F 98 F 08/21/19 08/21/19 06:00 10:46 Breakfast Lunch Supper Temperature 99.7 F H 98.9 F Laboratory Tests 08/20/19 08/21/19 05:52 06:35 WBC 10.1 H 8.7 Tolerating PO intake. Pending colonoscopy.
--- NOTE | 2019-08-21 12:28 | PN ---
Progress Note (short form) - Note Progress Note: Pt evaluated this am prior to colonoscopy, consumed approximately 1/4 prep ( container at bedside), says she didnt like the taste and does not want to attempt to drink more this am. States she had loose bm overnight though none reported/documented per nursing staff. No bms this am. Discussed with nursing staff. Scant brown stool on exam. Colonoscopy therefore cancelled today. Recommendations: -Plan for colonoscopy tomorrow as pt did not prep today and did not want to drink more this morning -Resume clear liquid diet -Start miralax prep at 5pm to improve tolerability -Dulcolax 20mg at 5pm -NPOpMn -Cbc, bmp in am -Discussed importance of prep for colonoscopy for visualization and to further assess CT findings. Pt verbalized understanding and agreeable.
--- NOTE | 2019-08-21 12:54 | PN ---
Progress Note (short form) - Note Progress Note: Diagnosis -Onychomycosis- Debridement of thick dystrophic mycotic toenails 1-10 patient has pain in shoes and ambulation- Positive subungual debrie, distal separation of nail from bed, inflamed nail bed
[2019-08-21] MEDS ORDERED: SODIUM CHLORIDE 0.45% 1,000 ML IV SCH (13:06)
--- NOTE | 2019-08-21 13:06 | PN ---
Progress Note, Physician History of Present Illness: Pt seen and examined at bedside. She is awake and alert. She denies shortness of breath. - Current Medication List Current Medications: Active Medications Albuterol Sulfate (Ventolin 0.083% Nebulizer Soln -) 1 amp NEB Q6H PRN PRN Reason: SHORT OF BREATH/WHEEZING Bisacodyl (Dulcolax -) 20 mg PO ONCE ONE Stop: 08/21/19 17:01 Gabapentin (Neurontin -) 100 mg PO TID [facility] Last Admin: 08/21/19 06:20 Dose: 100 mg Heparin Sodium (Porcine) (Heparin -) 5,000 unit SQ TID [facility] Last Admin: 08/20/19 22:31 Dose: 5,000 unit Sodium Chloride (1/2 Normal Saline) 1,000 mls @ 50 mls/hr IV ASDIR [facility] Stop: 08/21/19 13:59 Last Admin: 08/20/19 14:39 Dose: 50 mls/hr Potassium Phosphate 10 mm/ (Sodium Chloride) 253.3333 mls @ 63.333 mls/hr IVPB ONCE ONE Stop: 08/21/19 14:29 Polyethylene Glycol (Miralax (For Bowel Prep) -) 255 gm PO ONCE ONE Stop: 08/21/19 17:01 Sodium Bicarbonate (Sodium Bicarbonate -) 650 mg PO BID [facility] Last Admin: 08/21/19 10:46 Dose: 650 mg Sodium Chloride ([place] Nasal [place] -) 2 spray NS TID PRN PRN Reason: NASAL CONGESTION - Objective Vital Signs: Vital Signs Temperature 98.9 F 08/21/19 10:46 Pulse Rate 71 08/21/19 10:46 Respiratory Rate 20 08/21/19 10:46 Blood Pressure 139/58 L 08/21/19 10:46 O2 Sat by Pulse Oximetry (%) 99 08/20/19 21:00 Constitutional: Yes: Calm Eyes: Yes: Conjunctiva Clear HENT: Yes: Atraumatic Neck: Yes: Supple Cardiovascular: Yes: S1, S2 Respiratory: Yes: CTA Bilaterally Gastrointestinal: Yes: Soft, Abdomen, Obese Genitourinary: Yes: WNL Musculoskeletal: Yes: WNL Edema: Yes Edema: LLE: 1+, RLE: 1+ Neurological: Yes: Oriented Psychiatric: Yes: Oriented Labs: CBC, BMP 08/21/19 06:35 08/21/19 06:35 INR, PTT INR 1.24 (0.83-1.09) H 08/15/19 14:00 Problem List - Problems (1) YAEL (acute kidney injury) Code(s): N17.9 - ACUTE KIDNEY FAILURE, UNSPECIFIED (2) Asthma Code(s): J45.909 - UNSPECIFIED ASTHMA, UNCOMPLICATED (3) Dehydration with hypernatremia Code(s): E87.0 - HYPEROSMOLALITY AND HYPERNATREMIA (4) Failure to thrive Code(s): HNQ1081 - Qualifiers: Failure to thrive age range: in adult Qualified Code(s): R62.7 - Adult failure to thrive (5) HTN (hypertension) Code(s): I10 - ESSENTIAL (PRIMARY) HYPERTENSION Assessment/Plan Current Medications Generic Name Dose Route Start Last Admin Trade Name Freq PRN Reason Stop Dose Admin Albuterol Sulfate 1 amp 08/20/19 17:30 Ventolin 0.083% Nebulizer Soln - NEB Q6H PRN SHORT OF BREATH/WHEEZING Bisacodyl 20 mg 08/21/19 17:00 Dulcolax - PO 08/21/19 17:01 ONCE ONE Gabapentin 100 mg 08/20/19 22:00 08/21/19 06:20 Neurontin - PO 100 mg TID GISELA Administration Heparin Sodium (Porcine) 5,000 unit 08/20/19 22:00 08/20/19 22:31 Heparin - SQ 5,000 unit TID GISELA Administration Sodium Chloride 1,000 mls @ 50 mls/hr 08/20/19 14:00 08/20/19 14:39 1/2 Normal Saline IV 08/21/19 13:59 50 mls/hr ASDIR GISELA Administration Potassium Phosphate 10 mm/ 253.3333 mls @ 63.333 mls/hr 08/21/19 10:30 Sodium Chloride IVPB 08/21/19 14:29 ONCE ONE Polyethylene Glycol 255 gm 08/21/19 17:00 Miralax (For Bowel Prep) - PO 08/21/19 17:01 ONCE ONE Sodium Bicarbonate 650 mg 08/20/19 22:00 08/21/19 10:46 Sodium Bicarbonate - PO 650 mg BID GISELA Administration Sodium Chloride 2 spray 08/20/19 17:30 [place] Nasal [place] - NS TID PRN NASAL CONGESTION Impression 1. YAEL 2. hypernatremia 3. metabolic acidosis 4. htn 5. asthma 6. obesity Plan - decrease fluids - repalce phos - replace mag - renal function has normalizes
[2019-08-21 14:43] VITALS: BMI 54.5
--- NOTE | 2019-08-21 14:57 | PN ---
Physical Exam: SUBJECTIVE: Patient seen and examined. She reports generalized pain and not feeling well. She does not give a clear answer when asked if she feels short of breath. OBJECTIVE: Vital Signs Period Temp Pulse Resp BP Sys/Parr Pulse Ox Last 24 Hr 98.9 F-99.7 F 71-83 20-20 126-139/58-63 99 GENERAL: The patient is awake, alert, and fully oriented, in no acute distress. Morbidly obese. HEAD: Normal with no signs of trauma. EYES: PERRL, extraocular movements intact, conjunctiva clear. ENT: Ears normal, nares patent, moist mucous membranes. NECK: Trachea midline, full range of motion LUNGS: Clear to auscultation bilaterally, no wheezes HEART: Regular rate and rhythm, no murmur ABDOMEN: Soft, tender to light palpation, nondistended, normoactive bowel sounds ; rash under pannus clearing, small areas of skin breakdown on underside of pannus BACK: stage 2 sacral ulcer with smaller surrounding ulcers EXTREMITIES: Warm, well-perfused, stage 1 ulcer on left calf; b/l lower extremities tender to touch, +1 pitting edema NEUROLOGICAL: Cranial nerves II through XII grossly intact. Normal speech. PSYCH: Normal mood, normal affect. SKIN: Warm, dry Laboratory Results - last 24 hr 08/21/19 08/21/19 06:35 06:35 WBC 8.7 RBC 3.56 L Hgb 9.5 L Hct 28.0 L MCV 78.8 L MCH 26.6 MCHC 33.7 RDW 15.1 Plt Count 130 L MPV 8.2 Absolute Neuts (auto) 5.6 Neutrophils % 64.5 Lymphocytes % 20.6 Monocytes % 12.6 H Eosinophils % 2.0 Basophils % 0.3 Nucleated RBC % 0 Sodium 145 Potassium 3.6 Chloride 116 H Carbon Dioxide 22 Anion Gap 7 L BUN 13.9 Creatinine 0.9 Est GFR (CKD-EPI)AfAm 70.48 Est GFR (CKD-EPI)NonAf 60.81 Random Glucose 97 Calcium 7.7 L Phosphorus 2.4 L Magnesium 1.7 L Total Bilirubin 0.3 AST 31 ALT 32 Alkaline Phosphatase 62 Total Protein 5.0 L Albumin 1.8 L Active Medications Generic Name Dose Route Start Last Admin Trade Name Freq PRN Reason Stop Dose Admin Albuterol Sulfate 1 amp 08/20/19 17:30 Ventolin 0.083% Nebulizer Soln - NEB Q6H PRN SHORT OF BREATH/WHEEZING Bisacodyl 20 mg 08/21/19 17:00 Dulcolax - PO 08/21/19 17:01 ONCE ONE Gabapentin 100 mg 08/20/19 22:00 08/21/19 13:53 Neurontin - PO 100 mg TID GISELA Administration Heparin Sodium (Porcine) 5,000 unit 08/20/19 22:00 08/20/19 22:31 Heparin - SQ 5,000 unit TID GISELA Administration Polyethylene Glycol 255 gm 08/21/19 17:00 Miralax (For Bowel Prep) - PO 08/21/19 17:01 ONCE ONE Sodium Bicarbonate 650 mg 08/20/19 22:00 08/21/19 10:46 Sodium Bicarbonate - PO 650 mg BID GISELA Administration Sodium Chloride 2 spray 08/20/19 17:30 [place] Nasal [place] - NS TID PRN NASAL CONGESTION ASSESSMENT/PLAN: Ms. Kellogg is a 78y/o female with HTN, asthma, morbid obesity, osteoarthritis who presents following being found on the floor. #abdominal pain -CT showed cecum thickening and irregularity, cannot r/o malignancy -GI following- colonoscopy planned for tomorrow #hypophosphatemia -replete -monitor #hypomagnesemia -replete -monitor #hypernatremia, resolved -nephrology following #b/l leg pain -gabapentin trial 100mg TID #stage 2 sacral ulcers #stage 1 left calf ulcer -blood cx negative -surgery consulted- Versatel dressing #onychomycosis -podiatry- debridement of nails done #HTN -non-compliant on meds -monitor #asthma -albuterol PRN #YAEL, resolved -U/S negative- both kidneys present #non-compliance to medications -psych evaluated pt; pt has capacity DVT Ppx heparin FEN clear liquids monitor Phos, Mg NPO after midnight dispo med/surg Visit type - Emergency Visit Emergency Visit: Yes ED Registration Date: 08/15/19 Care time: The patient presented to the Emergency Department on the above date and was hospitalized for further evaluation of their emergent condition. - New Patient This patient is new to me today: No - Critical Care Critical Care patient: No - Discharge Referral Referred to [facility] Med [facility] No ATTENDING PHYSICIAN STATEMENT I saw and evaluated the patient. I reviewed the resident's note and discussed the case with the resident. I agree with the resident's findings and plan as documented. SUBJECTIVE: OBJECTIVE: ASSESSMENT AND PLAN:
[2019-08-21] MEDS ORDERED: BISACODYL 5 MG TABLET.DR (FP) PO ONE (17:00)
[2019-08-21] MEDS ORDERED: POLYETHYLENE GLYCOL 3350 255 GM BTL PO ONE (17:00)
[2019-08-21] MEDS: HEPARIN NA (PORCINE) 5,000 UNITS/ML 1ML VIAL SQ SCH (21:24)
[2019-08-22] MEDS: GABAPENTIN 100 MG CAPSULE (FP) PO SCH ×3 (06:06→21:48)
[2019-08-22] MEDS: HEPARIN NA (PORCINE) 5,000 UNITS/ML 1ML VIAL SQ SCH ×3 (06:06→21:49)
[2019-08-22 08:40] LABS: BASO % 0.3 % (0-2.0); EOS % 1.7 % (0-4.5); HEMATOCRIT 29.7 % (32.4-45.2); HEMOGLOBIN 9.9 GM/dL (10.7-15.3); LYMPH % 19.9 % (8-40); MCH 26.2 pg (25.7-33.7); MCHC 33.2 g/dl (32.0-36.0); MEAN CELL VOLUME 78.8 fl (80-96); MEAN PLT VOLUME 8.2 fl (7.5-11.1); NEUT % 69.1 % (42.8-82.8); PLATELET COUNT 164 K/MM3 (134-434); RBC 3.77 M/mm3 (3.60-5.2); RDW 14.6 % (11.6-15.6); WHITE BLOOD COUNT 7.9 K/mm3 (4.0-10.0)
[2019-08-22 08:46] LABS: INR 1.06 (0.83-1.09); PROTHROMBIN TIME (PATIENT) 12.5 SEC (9.7-13.0)
[2019-08-22] MEDS: SODIUM BICARBONATE 650 MG TABLET PO SCH (09:09)
--- NOTE | 2019-08-22 09:14 | PN ---
Physical Exam: SUBJECTIVE: Patient seen and examined. She reports abdominal discomfort with the bowel prep and did not want to finish the prep. She had multiple loose stools overnight. OBJECTIVE: Vital Signs Period Temp Pulse Resp BP Sys/Parr Pulse Ox Last 24 Hr 97.5 F-99.2 F 69-78 20-202 139-148/51-68 100 GENERAL: The patient is awake, alert, and fully oriented, in no acute distress. Morbidly obese. HEAD: Normal with no signs of trauma. EYES: PERRL, extraocular movements intact, conjunctiva clear. ENT: Ears normal, nares patent, moist mucous membranes. NECK: Trachea midline, full range of motion LUNGS: Clear to auscultation bilaterally, no wheezes HEART: Regular rate and rhythm, no murmur ABDOMEN: Soft, non-tender to palpation, nondistended, normoactive bowel sounds EXTREMITIES: Warm, well-perfused, stage 1 ulcer on left calf; b/l lower extremities tender to touch, +1 pitting edema NEUROLOGICAL: Cranial nerves II through XII grossly intact. Normal speech. PSYCH: Normal mood, normal affect. SKIN: Warm, dry Laboratory Results - last 24 hr 08/22/19 08/22/19 07:13 07:13 WBC 7.9 RBC 3.77 Hgb 9.9 L Hct 29.7 L MCV 78.8 L MCH 26.2 MCHC 33.2 RDW 14.6 Plt Count 164 D MPV 8.2 Absolute Neuts (auto) 5.5 Neutrophils % 69.1 Lymphocytes % 19.9 Monocytes % 9.0 Eosinophils % 1.7 Basophils % 0.3 Nucleated RBC % 0 PT with INR 12.50 INR 1.06 Active Medications Generic Name Dose Route Start Last Admin Trade Name Freq PRN Reason Stop Dose Admin Albuterol Sulfate 1 amp 08/20/19 17:30 Ventolin 0.083% Nebulizer Soln - NEB Q6H PRN SHORT OF BREATH/WHEEZING Gabapentin 100 mg 08/20/19 22:00 08/22/19 06:06 Neurontin - PO Not Given TID GISELA Heparin Sodium (Porcine) 5,000 unit 08/20/19 22:00 08/22/19 06:06 Heparin - SQ 5,000 unit TID GISELA Administration Sodium Bicarbonate 650 mg 08/20/19 22:00 08/22/19 09:09 Sodium Bicarbonate - PO Not Given BID GISELA Sodium Chloride 2 spray 08/20/19 17:30 [place] Nasal [place] - NS TID PRN NASAL CONGESTION ASSESSMENT/PLAN: Ms. Kellogg is a 78y/o female with HTN, asthma, morbid obesity, osteoarthritis who presents following being found on the floor. #abdominal pain -CT showed cecum thickening and irregularity, cannot r/o malignancy- encouraging colonoscopy prep -GI following #hypernatremia, resolved #hypophosphatemia #hypomagnesemia -nephrology following #b/l leg pain -gabapentin trial 100mg TID #stage 2 sacral ulcers #stage 1 left calf ulcer -blood cx negative -surgery consulted- Versatel dressing #onychomycosis -podiatry- debridement of nails done #HTN -non-compliant on meds -monitor #asthma -albuterol PRN #YAEL, resolved -U/S negative- both kidneys present #non-compliance to medications -psych evaluated pt; pt has capacity DVT Ppx heparin FEN clear liquids monitor Phos, Mg NPO after midnight dispo med/surg Visit type - Emergency Visit Emergency Visit: Yes ED Registration Date: 08/15/19 Care time: The patient presented to the Emergency Department on the above date and was hospitalized for further evaluation of their emergent condition. - New Patient This patient is new to me today: No - Critical Care Critical Care patient: No - Discharge Referral Referred to [facility] Med P.C[facility] No ATTENDING PHYSICIAN STATEMENT I saw and evaluated the patient. I reviewed the resident's note and discussed the case with the resident. I agree with the resident's findings and plan as documented. SUBJECTIVE: OBJECTIVE: ASSESSMENT AND PLAN:
[2019-08-22 09:16] LABS: BLOOD UREA NITROGEN 9.7 mg/dL (7-18); CALCIUM 7.9 mg/dL (8.5-10.1); CREATININE 0.7 mg/dL (0.55-1.3); POTASSIUM 3.6 mmol/L (3.5-5.1)
[2019-08-22] MEDS ORDERED: PT OWN MED DRAWER 7, Y5N ONE ×2 (11:03→21:14)
[2019-08-22] MEDS ORDERED: ONDANSETRON 4 MG/2 ML VIAL IVPUSH PRN (17:50)
[2019-08-22] MEDS ORDERED: PEG 3350/NA SULF BICARB CL/KCL 4000 ML SOLN.RECON PO ONE ×2 (17:52)
--- NOTE | 2019-08-22 18:18 | PN ---
Progress Note, Physician History of Present Illness: Pt seen and examined at bedside. She is awake and appears comfortable. - Current Medication List Current Medications: Active Medications Albuterol Sulfate (Ventolin 0.083% Nebulizer Soln -) 1 amp NEB Q6H PRN PRN Reason: SHORT OF BREATH/WHEEZING Gabapentin (Neurontin -) 100 mg PO TID [facility] Last Admin: 08/22/19 13:21 Dose: 100 mg Heparin Sodium (Porcine) (Heparin -) 5,000 unit SQ TID GISELA Last Admin: 08/22/19 13:21 Dose: 5,000 unit Famotidine/Sodium Chloride (Pepcid 20 Mg Premixed Ivpb -) 20 mg in 50 mls @ 100 mls/hr IVPB BID GISELA Ondansetron HCl (Zofran Injection) 4 mg IVPUSH Q6H PRN PRN Reason: NAUSEA Sodium Bicarbonate (Sodium Bicarbonate -) 650 mg PO BID [facility] Last Admin: 08/21/19 21:24 Dose: 650 mg Sodium Chloride ([place] Nasal [place] -) 2 spray NS TID PRN PRN Reason: NASAL CONGESTION - Objective Vital Signs: Vital Signs Temperature 98.1 F 08/22/19 14:00 Pulse Rate 73 08/22/19 10:00 Respiratory Rate 18 08/22/19 10:00 Blood Pressure 140/54 L 08/22/19 10:00 O2 Sat by Pulse Oximetry (%) 98 08/22/19 09:00 Constitutional: Yes: Calm Eyes: Yes: Conjunctiva Clear HENT: Yes: Atraumatic Neck: Yes: Supple Cardiovascular: Yes: S1, S2 Respiratory: Yes: CTA Bilaterally Gastrointestinal: Yes: Soft Genitourinary: Yes: WNL Musculoskeletal: Yes: WNL Edema: Yes Edema: LLE: Trace, RLE: Trace Neurological: Yes: Oriented Psychiatric: Yes: Oriented Labs: CBC, BMP 08/22/19 07:13 08/22/19 07:13 INR, PTT INR 1.06 (0.83-1.09) 08/22/19 07:13 Problem List - Problems (1) YAEL (acute kidney injury) Code(s): N17.9 - ACUTE KIDNEY FAILURE, UNSPECIFIED (2) Asthma Code(s): J45.909 - UNSPECIFIED ASTHMA, UNCOMPLICATED (3) Dehydration with hypernatremia Code(s): E87.0 - HYPEROSMOLALITY AND HYPERNATREMIA (4) Failure to thrive Code(s): [id number] - Qualifiers: Failure to thrive age range: in adult Qualified Code(s): R62.7 - Adult failure to thrive (5) HTN (hypertension) Code(s): I10 - ESSENTIAL (PRIMARY) HYPERTENSION Assessment/Plan Current Medications Generic Name Dose Route Start Last Admin Trade Name Freq PRN Reason Stop Dose Admin Albuterol Sulfate 1 amp 08/20/19 17:30 Ventolin 0.083% Nebulizer Soln - NEB Q6H PRN SHORT OF BREATH/WHEEZING Gabapentin 100 mg 08/20/19 22:00 08/22/19 13:21 Neurontin - PO 100 mg TID GISELA Administration Heparin Sodium (Porcine) 5,000 unit 08/20/19 22:00 08/22/19 13:21 Heparin - SQ 5,000 unit TID GISELA Administration Famotidine/Sodium Chloride 20 mg in 50 mls @ 100 mls/hr 08/22/19 22:00 Pepcid 20 Mg Premixed Ivpb - IVPB BID GISELA Ondansetron HCl 4 mg 08/22/19 17:50 Zofran Injection IVPUSH Q6H PRN NAUSEA Sodium Bicarbonate 650 mg 08/20/19 22:00 08/21/19 21:24 Sodium Bicarbonate - PO 650 mg BID GISELA Administration Sodium Chloride 2 spray 08/20/19 17:30 [place] Nasal [place] - NS TID PRN NASAL CONGESTION Impression 1. YAEL 2. hypernatremia 3. metabolic acidosis 4. htn 5. asthma 6. obesity Plan - renal function improved - d/c fluids - d/c sodium bicarb - monitor lytes
--- NOTE | 2019-08-22 18:59 | PN ---
Progress Note (short form) - Note Progress Note: call center operator resident paged that the patient was refusing bowel prep. Resident at the bedside Patient stated that she was nauseous and did not want to take the bowel prep because "it will make me more nauseous". Patient was encouraged to take the bowel prep noting that previous her previous conversations with the residents indicated that she was willing to complete the bowel prep. She was counseled on the importance of completing the bowel prep to undergo colonoscopy. Patient continued to adamantly refuse the bowel prep and would not discuss any further management. Nursing was encouraged to try and offer the bowel prep at a later time during the night.
--- NOTE | 2019-08-22 19:23 | PN ---
Teaching Attending Note Name of Resident: Tiffany Echevarria ATTENDING PHYSICIAN STATEMENT I saw and evaluated the patient. I reviewed the resident's note and discussed the case with the resident. I agree with the resident's findings and plan as documented. 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 feels nauseas Vital Signs Temperature 98.2 F 08/22/19 18:30 Pulse Rate 82 08/22/19 18:30 Respiratory Rate 20 08/22/19 18:30 Blood Pressure 131/55 L 08/22/19 18:30 O2 Sat by Pulse Oximetry (%) 98 08/22/19 09:00 GENERAL: The patient is awake, alert, and fully oriented, in no acute distress. HEAD: Normal with no signs of trauma. EYES: PERRL, extraocular movements intact, sclera anicteric, conjunctiva clear. ENT: Ears normal, oropharynx clear without exudates, moist mucous membranes. NECK: Trachea midline, full range of motion, supple. LUNGS: Breath sounds equal, clear to auscultation bilaterally, no wheezes, no crackles, no accessory muscle use. HEART: Regular rate and rhythm, S1, S2 without murmur, rub or gallop. ABDOMEN: Soft, nontender, nondistended, normoactive bowel sounds, no guarding, no rebound, no hepatosplenomegaly, no masses. EXTREMITIES: 2+ pulses, warm, well-perfused, no edema. NEUROLOGICAL: Cranial nerves II through XII grossly intact. Normal speech, gait not observed. PSYCH: Normal mood, normal affect. SKIN: Warm, dry, normal turgor, no rashes or lesions noted Decubitus ulcer stage CBCD WBC 7.9 K/mm3 (4.0-10.0) 08/22/19 07:13 RBC 3.77 M/mm3 (3.60-5.2) 08/22/19 07:13 Hgb 9.9 GM/dL (10.7-15.3) L 08/22/19 07:13 Hct 29.7 % (32.4-45.2) L 08/22/19 07:13 MCV 78.8 fl (80-96) L 08/22/19 07:13 MCHC 33.2 g/dl (32.0-36.0) 08/22/19 07:13 RDW 14.6 % (11.6-15.6) 08/22/19 07:13 Plt Count 164 K/MM3 (134-434) D 08/22/19 07:13 MPV 8.2 fl (7.5-11.1) 08/22/19 07:13 CMP Sodium 144 mmol/L (136-145) 08/22/19 07:13 Potassium 3.6 mmol/L (3.5-5.1) 08/22/19 07:13 Chloride 114 mmol/L (98-107) H 08/22/19 07:13 Carbon Dioxide 22 mmol/L (21-32) 08/22/19 07:13 Anion Gap 9 MMOL/L (8-16) 08/22/19 07:13 BUN 9.7 mg/dL (7-18) 08/22/19 07:13 Creatinine 0.7 mg/dL (0.55-1.3) 08/22/19 07:13 Random Glucose 79 mg/dL (74-106) 08/22/19 07:13 Calcium 7.9 mg/dL (8.5-10.1) L 08/22/19 07:13 Total Bilirubin 0.3 mg/dL (0.2-1) 08/21/19 06:35 AST 31 U/L (15-37) 08/21/19 06:35 ALT 32 U/L (13-61) 08/21/19 06:35 Alkaline Phosphatase 62 U/L (45-117) 08/21/19 06:35 Total Protein 5.0 g/dl (6.4-8.2) L 08/21/19 06:35 Albumin 1.8 g/dl (3.4-5.0) L 08/21/19 06:35 CARDIAC ENZYMES Creatine Kinase 488 U/L (26-192) H 08/16/19 05:00 Troponin I < 0.02 ng/ml (0.00-0.05) 08/16/19 05:00 Current Medications Generic Name Dose Route Start Last Admin Trade Name Freq PRN Reason Stop Dose Admin Albuterol Sulfate 1 amp 08/20/19 17:30 Ventolin 0.083% Nebulizer Soln - NEB Q6H PRN SHORT OF BREATH/WHEEZING Gabapentin 100 mg 08/20/19 22:00 08/22/19 13:21 Neurontin - PO 100 mg TID GISELA Administration Heparin Sodium (Porcine) 5,000 unit 08/20/19 22:00 08/22/19 13:21 Heparin - SQ 5,000 unit TID GISELA Administration Famotidine/Sodium Chloride 20 mg in 50 mls @ 100 mls/hr 08/22/19 22:00 Pepcid 20 Mg Premixed Ivpb - IVPB BID GISELA Ondansetron HCl 4 mg 08/22/19 17:50 08/22/19 18:52 Zofran Injection IVPUSH 4 mg Q6H PRN Administration NAUSEA Sodium Chloride 2 spray 08/20/19 17:30 [place] Nasal [place] - NS TID PRN NASAL CONGESTION Ct of the abdomen: thickening and irregularities of the cecum of uncertain etiology. aNEOPLASTIC PROCESS CANNOT BE EXCLUDED. Assessment and plan: Patient is a 78yo female with PMHx of HTN, Asthma, OA, obesity, who has no current medical care and on no meds who presented after she was not able to get up from the floor. she was found to have severe dehydration and YAEL # Thickening and irregularities of the cecum: patient is getting prepared for Colonoscopy but unable to drink the prep.feeling nauseas, will try again in am. # Severe dehydration: improved # YAEL: likely due to volume depletion.Improved # Mild Rhabdo improved will dc IVF with Bicarb. # metabolic acidosis. lactic acid normalized. renal failure still contributing # leukocytosis , no clear source of infection. improved # h/o L renal resection # L leg and L gluteal stage 2 decubiti # H/o Asthma # microcytic anemia - most likely chronic iron studies do not indicate iron def. microcytic anemia might be due to ACD. repeat iron studies and further w/ u as out pt DVt px: heparin sq
--- NOTE | 2019-08-22 20:12 | PN ---
Progress Note (short form) - Note Progress Note: Patient refusing prep. States that she is not up to prepping and asked that it be stopped. Explained that the abnormal area in her colon, aside from benign findings, could also reflect a cancer. Still refused. Stopped prep, advanced diet Consider reevaluation of the cecal findings with CT scan with PO and IV contrast if ok from renal standpoint. 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
[2019-08-22] MEDS: FAMOTIDINE 20 MG/50 ML IVPB 20 MG/50 ML MG IVPB SCH (21:48)
[2019-08-23] MEDS: GABAPENTIN 100 MG CAPSULE (FP) PO SCH ×3 (06:11→21:55)
[2019-08-23 08:36] LABS: BASO % 0.4 % (0-2.0); EOS % 1.9 % (0-4.5); HEMATOCRIT 27.8 % (32.4-45.2); HEMOGLOBIN 9.2 GM/dL (10.7-15.3); MCH 25.9 pg (25.7-33.7); MEAN CELL VOLUME 78.4 fl (80-96); MONO % 9.7 % (3.8-10.2); PLATELET COUNT 210 K/MM3 (134-434); RBC 3.55 M/mm3 (3.60-5.2); RDW 15.1 % (11.6-15.6); WHITE BLOOD COUNT 6.1 K/mm3 (4.0-10.0)
[2019-08-23 08:45] LABS: ALBUMIN 1.7 g/dl (3.4-5.0); BILIRUBIN,TOTAL 0.3 mg/dL (0.2-1); BLOOD UREA NITROGEN 6.2 mg/dL (7-18); CALCIUM 7.9 mg/dL (8.5-10.1); CREATININE 0.8 mg/dL (0.55-1.3); MAGNESIUM 1.7 mg/dL (1.8-2.4); PHOSPHOROUS 2.9 mg/dL (2.5-4.9); POTASSIUM 3.4 mmol/L (3.5-5.1)
[2019-08-23] MEDS ORDERED: MAGNESIUM OXIDE 400 MG TABLET (FP) PO ONE (09:15)
[2019-08-23] MEDS ORDERED: POTASSIUM CHLORIDE TABS 20 MEQ TABLET.ER (FP) PO ONE (09:15)
[2019-08-23] MEDS: FAMOTIDINE 20 MG/50 ML IVPB 20 MG/50 ML MG IVPB SCH (09:56)
--- NOTE | 2019-08-23 14:14 | PN ---
Physical Exam: SUBJECTIVE: Patient seen and examined. She reports not completing bowel prep. OBJECTIVE: Vital Signs Period Temp Pulse Resp BP Sys/Parr Pulse Ox Last 24 Hr 98.2 F-99.1 F 74-82 18-20 114-142/42-56 98 GENERAL: The patient is awake, alert, and fully oriented, in no acute distress. Morbidly obese. HEAD: Normal with no signs of trauma. EYES: PERRL, extraocular movements intact, conjunctiva clear. ENT: Ears normal, nares patent, moist mucous membranes. NECK: Trachea midline, full range of motion LUNGS: Clear to auscultation bilaterally, no wheezes HEART: Regular rate and rhythm, no murmur ABDOMEN: Soft, non-tender to palpation, nondistended, normoactive bowel sounds EXTREMITIES: Warm, well-perfused, stage 1 ulcer on left calf; b/l lower extremities tender to touch, +1 pitting edema NEUROLOGICAL: Cranial nerves II through XII grossly intact. Normal speech. PSYCH: Normal mood, normal affect. SKIN: Warm, dry Laboratory Results - last 24 hr 08/23/19 08/23/19 06:00 07:00 WBC 6.1 RBC 3.55 L Hgb 9.2 L Hct 27.8 L MCV 78.4 L MCH 25.9 MCHC 33.0 RDW 15.1 Plt Count 210 D MPV 8.0 Absolute Neuts (auto) 4.0 Neutrophils % 66.0 Lymphocytes % 22.0 Monocytes % 9.7 Eosinophils % 1.9 Basophils % 0.4 Nucleated RBC % 0 Sodium 143 Potassium 3.4 L Chloride 112 H Carbon Dioxide 22 Anion Gap 9 BUN 6.2 L Creatinine 0.8 Est GFR (CKD-EPI)AfAm 81.27 Est GFR (CKD-EPI)NonAf 70.12 Random Glucose 91 Calcium 7.9 L Phosphorus 2.9 Magnesium 1.7 L Total Bilirubin 0.3 AST 27 ALT 35 Alkaline Phosphatase 61 Total Protein 5.0 L Albumin 1.7 L Active Medications Generic Name Dose Route Start Last Admin Trade Name Freq PRN Reason Stop Dose Admin Albuterol Sulfate 1 amp 08/20/19 17:30 Ventolin 0.083% Nebulizer Soln - NEB Q6H PRN SHORT OF BREATH/WHEEZING Gabapentin 100 mg 08/20/19 22:00 08/23/19 06:11 Neurontin - PO 100 mg TID GISELA Administration Heparin Sodium (Porcine) 5,000 unit 08/20/19 22:00 08/22/19 21:49 Heparin - SQ 5,000 unit TID GISELA Administration Ondansetron HCl 4 mg 08/22/19 17:50 08/22/19 18:52 Zofran Injection IVPUSH 4 mg Q6H PRN Administration NAUSEA Sodium Chloride 2 spray 08/20/19 17:30 [place] Nasal [place] - NS TID PRN NASAL CONGESTION ASSESSMENT/PLAN: Ms. Kellogg is a 78y/o female with HTN, asthma, morbid obesity, osteoarthritis who presents following being found on the floor. #abdominal pain -CT showed cecum thickening and irregularity, cannot r/o malignancy- encouraged colonoscopy prep but pt refused x3 -GI recommended CT with IV and PO contrast but pt refused radiation -pt was educated by multiple physicians about the importance of obtaining imaging to r/o cancer #hypernatremia, resolved #hypophosphatemia #hypomagnesemia -nephrology following #b/l leg pain -gabapentin trial 100mg TID #stage 2 sacral ulcers #stage 1 left calf ulcer -blood cx negative -surgery consulted- Versatel dressing #onychomycosis -podiatry- debridement of nails done #HTN -non-compliant on meds -monitor #asthma -albuterol PRN #YAEL, resolved -U/S negative- both kidneys present #non-compliance to medications -psych evaluated pt; pt has capacity DVT Ppx heparin FEN PO liquids monitor Phos, Mg regular diet dispo med/surg Visit type - Emergency Visit Emergency Visit: Yes ED Registration Date: 08/15/19 Care time: The patient presented to the Emergency Department on the above date and was hospitalized for further evaluation of their emergent condition. - New Patient This patient is new to me today: No - Critical Care Critical Care patient: No - Discharge Referral Referred to [facility] Med P.C.: No ATTENDING PHYSICIAN STATEMENT I saw and evaluated the patient. I reviewed the resident's note and discussed the case with the resident. I agree with the resident's findings and plan as documented. SUBJECTIVE: OBJECTIVE: ASSESSMENT AND PLAN:
--- NOTE | 2019-08-23 16:10 | PN ---
Progress Note, Physician History of Present Illness: Pt seen and examined at bedside. She is awake and appears comfortable. She denies shortness of breath. - Current Medication List Current Medications: Active Medications Albuterol Sulfate (Ventolin 0.083% Nebulizer Soln -) 1 amp NEB Q6H PRN PRN Reason: SHORT OF BREATH/WHEEZING Gabapentin (Neurontin -) 100 mg PO TID GISELA Last Admin: 08/23/19 14:37 Dose: 100 mg Heparin Sodium (Porcine) (Heparin -) 5,000 unit SQ TID GISELA Last Admin: 08/22/19 21:49 Dose: 5,000 unit Ondansetron HCl (Zofran Injection) 4 mg IVPUSH Q6H PRN PRN Reason: NAUSEA Last Admin: 08/22/19 18:52 Dose: 4 mg Sodium Chloride ([place] Nasal [place] -) 2 spray NS TID PRN PRN Reason: NASAL CONGESTION - Objective Vital Signs: Vital Signs Temperature 98.2 F 08/23/19 15:38 Pulse Rate 78 08/23/19 15:38 Respiratory Rate 18 08/23/19 15:38 Blood Pressure 114/67 08/23/19 15:38 O2 Sat by Pulse Oximetry (%) 98 08/22/19 21:00 Constitutional: Yes: Calm Eyes: Yes: Conjunctiva Clear HENT: Yes: Atraumatic Neck: Yes: Supple Cardiovascular: Yes: S1, S2 Respiratory: Yes: CTA Bilaterally Gastrointestinal: Yes: Soft Musculoskeletal: Yes: WNL Edema: LLE: Trace, RLE: Trace Neurological: Yes: Oriented Psychiatric: Yes: Oriented Labs: CBC, BMP 08/23/19 07:00 08/23/19 06:00 INR, PTT INR 1.06 (0.83-1.09) 08/22/19 07:13 Problem List - Problems (1) YAEL (acute kidney injury) Code(s): N17.9 - ACUTE KIDNEY FAILURE, UNSPECIFIED (2) Asthma Code(s): J45.909 - UNSPECIFIED ASTHMA, UNCOMPLICATED (3) Dehydration with hypernatremia Code(s): E87.0 - HYPEROSMOLALITY AND HYPERNATREMIA (4) Failure to thrive Code(s): KYS0256 - Qualifiers: Failure to thrive age range: in adult Qualified Code(s): R62.7 - Adult failure to thrive (5) HTN (hypertension) Code(s): I10 - ESSENTIAL (PRIMARY) HYPERTENSION Assessment/Plan Current Medications Generic Name Dose Route Start Last Admin Trade Name Freq PRN Reason Stop Dose Admin Albuterol Sulfate 1 amp 08/20/19 17:30 Ventolin 0.083% Nebulizer Soln - NEB Q6H PRN SHORT OF BREATH/WHEEZING Gabapentin 100 mg 08/20/19 22:00 08/23/19 14:37 Neurontin - PO 100 mg TID GISELA Administration Heparin Sodium (Porcine) 5,000 unit 08/20/19 22:00 08/22/19 21:49 Heparin - SQ 5,000 unit TID GISELA Administration Ondansetron HCl 4 mg 08/22/19 17:50 08/22/19 18:52 Zofran Injection IVPUSH 4 mg Q6H PRN Administration NAUSEA Sodium Chloride 2 spray 08/20/19 17:30 [place] Nasal [place] - NS TID PRN NASAL CONGESTION Impression 1. YAEL 2. hypernatremia 3. metabolic acidosis 4. htn 5. asthma 6. obesity 7. hypokalemia Plan - renal function is stable - encourage po intake - replace potassium - outpt follow up - will follow PRN
--- NOTE | 2019-08-23 16:19 | PN ---
Teaching Attending Note Name of Resident: Tiffany Echevarria ATTENDING PHYSICIAN STATEMENT I saw and evaluated the patient. I reviewed the resident's note and discussed the case with the resident. I agree with the resident's findings and plan as documented. SUBJECTIVE: Patient has no new complains unable to ambulate, lying on the bed with no acute distress. Vital Signs Temperature 98.2 F 08/23/19 15:38 Pulse Rate 78 08/23/19 15:38 Respiratory Rate 18 08/23/19 15:38 Blood Pressure 114/67 08/23/19 15:38 O2 Sat by Pulse Oximetry (%) 98 08/22/19 21:00 GENERAL: The patient is awake, alert, and fully oriented, in no acute distress. HEAD: Normal with no signs of trauma. EYES: PERRL, extraocular movements intact, sclera anicteric, conjunctiva clear. ENT: Ears normal, oropharynx clear without exudates, moist mucous membranes. NECK: Trachea midline, full range of motion, supple. LUNGS: Breath sounds equal, clear to auscultation bilaterally, no wheezes, no crackles, no accessory muscle use. HEART: Regular rate and rhythm, S1, S2 without murmur, rub or gallop. ABDOMEN: Soft, nontender, nondistended, normoactive bowel sounds, no guarding, no rebound, no hepatosplenomegaly, no masses. EXTREMITIES: 2+ pulses, warm, well-perfused, no edema. NEUROLOGICAL: Cranial nerves II through XII grossly intact. Normal speech, gait not observed. PSYCH: Normal mood, normal affect. SKIN: Warm, dry, normal turgor, no rashes or lesions noted CBCD WBC 6.1 K/mm3 (4.0-10.0) 08/23/19 07:00 RBC 3.55 M/mm3 (3.60-5.2) L 08/23/19 07:00 Hgb 9.2 GM/dL (10.7-15.3) L 08/23/19 07:00 Hct 27.8 % (32.4-45.2) L 08/23/19 07:00 MCV 78.4 fl (80-96) L 08/23/19 07:00 MCHC 33.0 g/dl (32.0-36.0) 08/23/19 07:00 RDW 15.1 % (11.6-15.6) 08/23/19 07:00 Plt Count 210 K/MM3 (134-434) D 08/23/19 07:00 MPV 8.0 fl (7.5-11.1) 08/23/19 07:00 CMP Sodium 143 mmol/L (136-145) 08/23/19 06:00 Potassium 3.4 mmol/L (3.5-5.1) L 08/23/19 06:00 Chloride 112 mmol/L (98-107) H 08/23/19 06:00 Carbon Dioxide 22 mmol/L (21-32) 08/23/19 06:00 Anion Gap 9 MMOL/L (8-16) 08/23/19 06:00 BUN 6.2 mg/dL (7-18) L 08/23/19 06:00 Creatinine 0.8 mg/dL (0.55-1.3) 08/23/19 06:00 Random Glucose 91 mg/dL (74-106) 08/23/19 06:00 Calcium 7.9 mg/dL (8.5-10.1) L 08/23/19 06:00 Total Bilirubin 0.3 mg/dL (0.2-1) 08/23/19 06:00 AST 27 U/L (15-37) 08/23/19 06:00 ALT 35 U/L (13-61) 08/23/19 06:00 Alkaline Phosphatase 61 U/L (45-117) 08/23/19 06:00 Total Protein 5.0 g/dl (6.4-8.2) L 08/23/19 06:00 Albumin 1.7 g/dl (3.4-5.0) L 08/23/19 06:00 CARDIAC ENZYMES Creatine Kinase 488 U/L (26-192) H 08/16/19 05:00 Troponin I < 0.02 ng/ml (0.00-0.05) 08/16/19 05:00 Current Medications Generic Name Dose Route Start Last Admin Trade Name Freq PRN Reason Stop Dose Admin Albuterol Sulfate 1 amp 08/20/19 17:30 Ventolin 0.083% Nebulizer Soln - NEB Q6H PRN SHORT OF BREATH/WHEEZING Gabapentin 100 mg 08/20/19 22:00 08/23/19 14:37 Neurontin - PO 100 mg TID GISELA Administration Heparin Sodium (Porcine) 5,000 unit 08/20/19 22:00 08/22/19 21:49 Heparin - SQ 5,000 unit TID GISELA Administration Ondansetron HCl 4 mg 08/22/19 17:50 08/22/19 18:52 Zofran Injection IVPUSH 4 mg Q6H PRN Administration NAUSEA Sodium Chloride 2 spray 08/20/19 17:30 [place] Nasal [place] - NS TID PRN NASAL CONGESTION Ct of the abdomen: thickening and irregularities of the cecum of uncertain etiology. aNEOPLASTIC PROCESS CANNOT BE EXCLUDED. Assessment and plan: Patient is a 78yo female with PMHx of HTN, Asthma, OA, obesity, who has no current medical care and on no meds who presented after she was not able to get up from the floor. she was found to have severe dehydration and YAEL # Thickening and irregularities of the cecum: patient is not able to drink the prep.for colonoscopy, refusing colonscopy at this time, GI recommending to have CT of abdomen and pelvis with oral and IV contrast, patient is refusing to have the CT abdomen and pelvis since afraid from the radiation at this time as well. patient is unable to ambulate , only 3 feet. # Severe dehydration: improved # YAEL: likely due to volume depletion.Improved # Mild Rhabdo improved will dc IVF with Bicarb. # metabolic acidosis. lactic acid normalized. renal failure still contributing # leukocytosis , no clear source of infection. improved # h/o L renal resection # L leg and L gluteal stage 2 decubiti # H/o Asthma # microcytic anemia - most likely chronic iron studies do not indicate iron def. microcytic anemia might be due to ACD. repeat iron studies and further w/ u as out pt DVt px: heparin sq
[2019-08-23] MEDS: HEPARIN NA (PORCINE) 5,000 UNITS/ML 1ML VIAL SQ SCH (21:55)
[2019-08-24] MEDS: GABAPENTIN 100 MG CAPSULE (FP) PO SCH ×3 (05:51→21:29)
[2019-08-24] MEDS: HEPARIN NA (PORCINE) 5,000 UNITS/ML 1ML VIAL SQ SCH ×3 (05:51→21:29)
[2019-08-24 09:07] LABS: BASO % 0.6 % (0-2.0); EOS % 2.3 % (0-4.5); HEMATOCRIT 27.7 % (32.4-45.2); HEMOGLOBIN 9.1 GM/dL (10.7-15.3); MCH 25.9 pg (25.7-33.7); MCHC 32.9 g/dl (32.0-36.0); MEAN CELL VOLUME 78.8 fl (80-96); MEAN PLT VOLUME 7.7 fl (7.5-11.1); MONO % 9.2 % (3.8-10.2); NEUT % 62.9 % (42.8-82.8); PLATELET COUNT 255 K/MM3 (134-434); RBC 3.52 M/mm3 (3.60-5.2); WHITE BLOOD COUNT 6.2 K/mm3 (4.0-10.0)
[2019-08-24 09:28] LABS: ALBUMIN 1.9 g/dl (3.4-5.0); BILIRUBIN,TOTAL 0.2 mg/dL (0.2-1); CREATININE 0.9 mg/dL (0.55-1.3); MAGNESIUM 1.7 mg/dL (1.8-2.4); PHOSPHOROUS 2.7 mg/dL (2.5-4.9); POTASSIUM 3.9 mmol/L (3.5-5.1); TOT PROT 5.3 g/dl (6.4-8.2)
[2019-08-24] MEDS: ALBUTEROL SO4 0.083% IH SOL 2.5 MG/3 ML VIAL.NEB. NEB PRN (10:10)
--- NOTE | 2019-08-24 12:13 | PN ---
Progress Note (short form) - Note Progress Note: Patient states her toenails are still to long. Debride nails at bedsitde Patient is discharged from my care
--- NOTE | 2019-08-24 18:33 | PN ---
Progress Note (short form) - Note Progress Note: Patient states that she is not leaving the hospital until she walks out of the hospital. Vital Signs Temperature 98.8 F 08/24/19 18:00 Pulse Rate 80 08/24/19 18:00 Respiratory Rate 20 08/24/19 18:00 Blood Pressure 122/57 L 08/24/19 18:00 O2 Sat by Pulse Oximetry (%) 99 08/24/19 09:00 GENERAL: The patient is awake, alert, and fully oriented, in no acute distress. HEAD: Normal with no signs of trauma. EYES: PERRL, extraocular movements intact, sclera anicteric, conjunctiva clear. ENT: Ears normal, oropharynx clear without exudates, moist mucous membranes. NECK: Trachea midline, full range of motion, supple. LUNGS: Breath sounds equal, clear to auscultation bilaterally, no wheezes, no crackles, no accessory muscle use. HEART: Regular rate and rhythm, S1, S2 without murmur, rub or gallop. ABDOMEN: Soft, nontender, nondistended, normoactive bowel sounds, no guarding, no rebound, no hepatosplenomegaly, no masses. EXTREMITIES: 2+ pulses, warm, well-perfused, no edema. NEUROLOGICAL: Cranial nerves II through XII grossly intact. Normal speech, gait not observed. PSYCH: Normal mood, normal affect. SKIN: Warm, dry, normal turgor, no rashes or lesions noted : positive for decubitus CBCD WBC 6.2 K/mm3 (4.0-10.0) 08/24/19 07:50 RBC 3.52 M/mm3 (3.60-5.2) L 08/24/19 07:50 Hgb 9.1 GM/dL (10.7-15.3) L 08/24/19 07:50 Hct 27.7 % (32.4-45.2) L 08/24/19 07:50 MCV 78.8 fl (80-96) L 08/24/19 07:50 MCHC 32.9 g/dl (32.0-36.0) 08/24/19 07:50 RDW 15.0 % (11.6-15.6) 08/24/19 07:50 Plt Count 255 K/MM3 (134-434) D 08/24/19 07:50 MPV 7.7 fl (7.5-11.1) 08/24/19 07:50 CMP Sodium 141 mmol/L (136-145) 08/24/19 07:50 Potassium 3.9 mmol/L (3.5-5.1) 08/24/19 07:50 Chloride 110 mmol/L (98-107) H 08/24/19 07:50 Carbon Dioxide 26 mmol/L (21-32) 08/24/19 07:50 Anion Gap 6 MMOL/L (8-16) L 08/24/19 07:50 BUN 6.0 mg/dL (7-18) L 08/24/19 07:50 Creatinine 0.9 mg/dL (0.55-1.3) 08/24/19 07:50 Random Glucose 99 mg/dL (74-106) 08/24/19 07:50 Calcium 8.0 mg/dL (8.5-10.1) L 08/24/19 07:50 Total Bilirubin 0.2 mg/dL (0.2-1) 08/24/19 07:50 AST 29 U/L (15-37) 08/24/19 07:50 ALT 38 U/L (13-61) 08/24/19 07:50 Alkaline Phosphatase 68 U/L (45-117) 08/24/19 07:50 Total Protein 5.3 g/dl (6.4-8.2) L 08/24/19 07:50 Albumin 1.9 g/dl (3.4-5.0) L 08/24/19 07:50 CARDIAC ENZYMES Creatine Kinase 488 U/L (26-192) H 08/16/19 05:00 Troponin I < 0.02 ng/ml (0.00-0.05) 08/16/19 05:00 Current Medications Generic Name Dose Route Start Last Admin Trade Name Freq PRN Reason Stop Dose Admin Albuterol Sulfate 1 amp 08/20/19 17:30 08/24/19 10:10 Ventolin 0.083% Nebulizer Soln - NEB 1 amp Q6H PRN Administration SHORT OF BREATH/WHEEZING Gabapentin 100 mg 08/20/19 22:00 08/24/19 14:08 Neurontin - PO 100 mg TID GISELA Administration Heparin Sodium (Porcine) 5,000 unit 08/20/19 22:00 12/21/19 14:07 Heparin - SQ 5,000 unit TID GISELA Administration Ondansetron HCl 4 mg 08/22/19 17:50 08/22/19 18:52 Zofran Injection IVPUSH 4 mg Q6H PRN Administration NAUSEA Sodium Chloride 2 spray 08/20/19 17:30 [place] Nasal [place] - NS TID PRN NASAL CONGESTION Ct of the abdomen: thickening and irregularities of the cecum of uncertain etiology. aNEOPLASTIC PROCESS CANNOT BE EXCLUDED. Assessment and plan: Patient is a 78yo female with PMHx of HTN, Asthma, OA, obesity, who has no current medical care and on no meds who presented after she was not able to get up from the floor. she was found to have severe dehydration and YAEL # Thickening and irregularities of the cecum: patient is not able to drink the prep.for colonoscopy, refusing colonscopy at this time, GI recommending to have CT of abdomen and pelvis with oral and IV contrast, patient is refusing to have the CT abdomen and pelvis since afraid from the radiation at this time as well. patient is unable to ambulate , only 3 feet. possible rehab. #B/L knee pain (morbidly obese) Xray of the kness, ortho consult dr mcdonald # Severe dehydration: improved # YAEL: likely due to volume depletion.Improved # Mild Rhabdo improved will dc IVF with Bicarb. # metabolic acidosis. lactic acid normalized. renal failure still contributing # leukocytosis , no clear source of infection. improved # h/o L renal resection # L leg and L gluteal stage 2 decubiti # H/o Asthma # microcytic anemia - most likely chronic iron studies do not indicate iron def. microcytic anemia might be due to ACD. repeat iron studies and further w/ u as out pt DVt px: heparin sq Visit type - Emergency Visit Emergency Visit: Yes ED Registration Date: 08/15/19 Care time: The patient presented to the Emergency Department on the above date and was hospitalized for further evaluation of their emergent condition. - New Patient This patient is new to me today: No - Critical Care Critical Care patient: No - Discharge Referral Referred to [facility] Med P.C.: No
[2019-08-25] MEDS: GABAPENTIN 100 MG CAPSULE (FP) PO SCH ×3 (06:23→21:24)
[2019-08-25] MEDS: HEPARIN NA (PORCINE) 5,000 UNITS/ML 1ML VIAL SQ SCH ×3 (06:23→21:24)
--- NOTE | 2019-08-25 10:50 | PN ---
Physical Exam: SUBJECTIVE: Patient seen and examined. She reports she is still not feeling better. She is having abdominal and foot pain. OBJECTIVE: Vital Signs Period Temp Pulse Resp BP Sys/Parr Pulse Ox Last 24 Hr 98 F-98.8 F 71-89 20-22 106-140/53-76 GENERAL: The patient is awake, alert, and fully oriented, in no acute distress. Morbidly obese. HEAD: Normal with no signs of trauma. EYES: PERRL, extraocular movements intact, conjunctiva clear. ENT: Ears normal, nares patent, moist mucous membranes. NECK: Trachea midline, full range of motion LUNGS: Clear to auscultation bilaterally, no wheezes HEART: Regular rate and rhythm, no murmur ABDOMEN: Soft, non-tender to palpation, nondistended, normoactive bowel sounds EXTREMITIES: Warm, well-perfused, stage 1 ulcer on left calf; b/l lower extremities tender to touch, +1 pitting edema NEUROLOGICAL: Cranial nerves II through XII grossly intact. Normal speech. PSYCH: Normal mood, normal affect. SKIN: Warm, dry Active Medications Generic Name Dose Route Start Last Admin Trade Name Freq PRN Reason Stop Dose Admin Albuterol Sulfate 1 amp 08/20/19 17:30 08/24/19 10:10 Ventolin 0.083% Nebulizer Soln - NEB 1 amp Q6H PRN Administration SHORT OF BREATH/WHEEZING Gabapentin 100 mg 08/20/19 22:00 08/25/19 06:23 Neurontin - PO 100 mg TID GISELA Administration Heparin Sodium (Porcine) 5,000 unit 08/20/19 22:00 08/25/19 06:23 Heparin - SQ 5,000 unit TID GISELA Administration Ondansetron HCl 4 mg 08/22/19 17:50 08/22/19 18:52 Zofran Injection IVPUSH 4 mg Q6H PRN Administration NAUSEA Sodium Chloride 2 spray 08/20/19 17:30 [place] Nasal [place] - NS TID PRN NASAL CONGESTION ASSESSMENT/PLAN: Ms. Kellogg is a 78y/o female with HTN, asthma, morbid obesity, osteoarthritis who presents following being found on the floor. #weakness -PT -encourage healthy dietary habits #b/l knee pain -right x-ray- degenerative changes -left x-ray- degenerative changes, possible joint effusion -ortho consulted #abdominal pain -CT showed cecum thickening and irregularity, cannot r/o malignancy- encouraged colonoscopy prep but pt refused x3 -GI recommended CT with IV and PO contrast but pt refused radiation -pt was educated by multiple physicians about the importance of obtaining imaging to r/o cancer #b/l leg pain -gabapentin 100mg TID #stage 2 sacral ulcers #stage 1 left calf ulcer -blood cx negative -surgery consulted- Versatel dressing #onychomycosis -podiatry- debridement of nails done #HTN -non-compliant on meds -monitor #asthma -albuterol PRN #YAEL, resolved -U/S negative- both kidneys present #hypernatremia, resolved #hypophosphatemia #hypomagnesemia #non-compliance to medications -psych evaluated pt; pt has capacity DVT Ppx heparin FEN PO liquids monitor Phos, Mg regular diet dispo med/surg Visit type - Emergency Visit Emergency Visit: Yes ED Registration Date: 08/15/19 Care time: The patient presented to the Emergency Department on the above date and was hospitalized for further evaluation of their emergent condition. - New Patient This patient is new to me today: No - Critical Care Critical Care patient: No - Discharge Referral Referred to [facility] Med P.C.: No ATTENDING PHYSICIAN STATEMENT I saw and evaluated the patient. I reviewed the resident's note and discussed the case with the resident. I agree with the resident's findings and plan as documented. SUBJECTIVE: OBJECTIVE: ASSESSMENT AND PLAN:
[2019-08-25] MEDS ORDERED: LIDOCAINE HCL 1%, 10 MG/ML (50 mL VIAL) SQ ONE (14:34)
[2019-08-25] MEDS ORDERED: methylPREDNISolone ACET (DEPO) 80 MG/1 ML VIAL IAR ONE ×2 (14:34)
--- NOTE | 2019-08-25 14:34 | CON.ORTH ---
Consult Reason for Consultation:: b/l knee pain - Past Medical History Cardio/Vascular: Yes: HTN, Murmur Pulmonary: Yes: Asthma Renal/: Yes: Renal Inusuff Musculoskeletal: Yes: Osteoarthritis - Past Surgical History Past Surgical History: Yes: Nephrectomy (left) - Alcohol/Substance Use Hx Alcohol Use: No History of Substance Use: reports: None - Smoking History Smoking history: Former smoker Have you smoked in the past 12 months: No - Social History Usual Living Arrangement: Alone () History of Recent Travel: No Home Medications - Allergies Allergies/Adverse Reactions: Allergies Allergy/AdvReac Type Severity Reaction Status Date / Time acetaminophen Allergy Difficulty Verified 08/15/19 13:31 [From Darvocet-N 100] Breathing Penicillins Allergy Rash Verified 08/15/19 13:31 propoxyphene napsylate Allergy Difficulty Verified 08/15/19 13:31 [From Darvocet-N 100] Breathing Physical Exam for Ortho Vital Signs: Vital Signs Temperature 98.5 F 08/25/19 06:00 Pulse Rate 71 08/25/19 06:00 Respiratory Rate 20 08/25/19 09:00 Blood Pressure 106/53 L 08/25/19 06:00 O2 Sat by Pulse Oximetry (%) 96 08/25/19 09:00 Constitutional: Yes: Obese Labs: CBC, BMP 08/24/19 07:50 08/24/19 07:50 INR, PTT INR 1.06 (0.83-1.09) 08/22/19 07:13 - Lower Extremity Knee: Yes: Left, Right, Pain, Tenderness, Other (minimal swelling, no erythema/ ecchymosis, rom 0-80, calf soft, nt, nvi) Imaging - Results X-ray: Image Reviewed Assessment/Plan 78yo female with PMHx of HTN, Asthma, OA, obesity, who has no current medical care and on no meds who presented after she was not able to get up from the floor. she was found to have severe dehydration and YAEL. Pt c/o pain in b/l knees since 08/10. Has h/o OA. a/p b/l knee djd Risks and benefits were d/w pt in detail PT, wbat will order depo-medrol to be injected into b/l knees tomorrow pain control will follow d/w Dr. Del Rosario
[2019-08-25] MEDS ORDERED: LIDOCAINE HCL 1%, 10 MG/ML (20ML VIAL) NR ONE (15:00)
--- NOTE | 2019-08-25 15:21 | PN ---
Teaching Attending Note Name of Resident: Tiffany Echevarria ATTENDING PHYSICIAN STATEMENT I saw and evaluated the patient. I reviewed the resident's note and discussed the case with the resident. I agree with the resident's findings and plan as documented. SUBJECTIVE: Patient is c/o bl knee pain. Vital Signs Temperature 98.5 F 08/25/19 06:00 Pulse Rate 71 08/25/19 06:00 Respiratory Rate 20 08/25/19 09:00 Blood Pressure 106/53 L 08/25/19 06:00 O2 Sat by Pulse Oximetry (%) 96 08/25/19 09:00 GENERAL: The patient is awake, alert, and fully oriented, in no acute distress. HEAD: Normal with no signs of trauma. EYES: PERRL, extraocular movements intact, sclera anicteric, conjunctiva clear. ENT: Ears normal, oropharynx clear without exudates, moist mucous membranes. NECK: Trachea midline, full range of motion, supple. LUNGS: Breath sounds equal, clear to auscultation bilaterally, no wheezes, no crackles, no accessory muscle use. HEART: Regular rate and rhythm, S1, S2 without murmur, rub or gallop. ABDOMEN: Soft, nontender, nondistended, normoactive bowel sounds, no guarding, no rebound, no hepatosplenomegaly, no masses. EXTREMITIES: 2+ pulses, warm, well-perfused, no edema. NEUROLOGICAL: Cranial nerves II through XII grossly intact. Normal speech, gait not observed. PSYCH: Normal mood, normal affect. SKIN: Warm, dry, normal turgor, no rashes or lesions noted : positive for decubitus CBCD WBC 6.2 K/mm3 (4.0-10.0) 08/24/19 07:50 RBC 3.52 M/mm3 (3.60-5.2) L 08/24/19 07:50 Hgb 9.1 GM/dL (10.7-15.3) L 08/24/19 07:50 Hct 27.7 % (32.4-45.2) L 08/24/19 07:50 MCV 78.8 fl (80-96) L 08/24/19 07:50 MCHC 32.9 g/dl (32.0-36.0) 08/24/19 07:50 RDW 15.0 % (11.6-15.6) 08/24/19 07:50 Plt Count 255 K/MM3 (134-434) D 08/24/19 07:50 MPV 7.7 fl (7.5-11.1) 08/24/19 07:50 CMP Sodium 141 mmol/L (136-145) 08/24/19 07:50 Potassium 3.9 mmol/L (3.5-5.1) 08/24/19 07:50 Chloride 110 mmol/L (98-107) H 08/24/19 07:50 Carbon Dioxide 26 mmol/L (21-32) 08/24/19 07:50 Anion Gap 6 MMOL/L (8-16) L 08/24/19 07:50 BUN 6.0 mg/dL (7-18) L 08/24/19 07:50 Creatinine 0.9 mg/dL (0.55-1.3) 08/24/19 07:50 Random Glucose 99 mg/dL (74-106) 08/24/19 07:50 Calcium 8.0 mg/dL (8.5-10.1) L 08/24/19 07:50 Total Bilirubin 0.2 mg/dL (0.2-1) 08/24/19 07:50 AST 29 U/L (15-37) 08/24/19 07:50 ALT 38 U/L (13-61) 08/24/19 07:50 Alkaline Phosphatase 68 U/L (45-117) 08/24/19 07:50 Total Protein 5.3 g/dl (6.4-8.2) L 08/24/19 07:50 Albumin 1.9 g/dl (3.4-5.0) L 08/24/19 07:50 CARDIAC ENZYMES Creatine Kinase 488 U/L (26-192) H 08/16/19 05:00 Troponin I < 0.02 ng/ml (0.00-0.05) 08/16/19 05:00 Current Medications Generic Name Dose Route Start Last Admin Trade Name Freq PRN Reason Stop Dose Admin Albuterol Sulfate 1 amp 08/20/19 17:30 08/24/19 10:10 Ventolin 0.083% Nebulizer Soln - NEB 1 amp Q6H PRN Administration SHORT OF BREATH/WHEEZING Gabapentin 100 mg 08/20/19 22:00 08/24/19 14:08 Neurontin - PO 100 mg TID GISELA Administration Heparin Sodium (Porcine) 5,000 unit 08/20/19 22:00 08/24/19 14:07 Heparin - SQ 5,000 unit TID GISELA Administration Ondansetron HCl 4 mg 08/22/19 17:50 08/22/19 18:52 Zofran Injection IVPUSH 4 mg Q6H PRN Administration NAUSEA Sodium Chloride 2 spray 08/20/19 17:30 [place] Nasal [place] - NS TID PRN NASAL CONGESTION Ct of the abdomen: thickening and irregularities of the cecum of uncertain etiology. aNEOPLASTIC PROCESS CANNOT BE EXCLUDED. Assessment and plan: Patient is a 78yo female with PMHx of HTN, Asthma, OA, obesity, who has no current medical care and on no meds who presented after she was not able to get up from the floor. she was found to have severe dehydration and YAEL # Thickening and irregularities of the cecum: patient is not able to drink the prep.for colonoscopy, refusing colonscopy at this time, GI recommending to have CT of abdomen and pelvis with oral and IV contrast, patient is refusing to have the CT abdomen and pelvis since afraid from the radiation at this time as well. patient is unable to ambulate , only 3 feet. possible rehab. #B/L knee pain (morbidly obese) Xray of the knees reviewed ,seen by ortho dr mcdonald, bl OA as per ortho, will be injected both knees. # Severe dehydration: improved # YAEL: likely due to volume depletion.Improved # Mild Rhabdo improved will dc IVF with Bicarb. # metabolic acidosis. lactic acid normalized. renal failure still contributing # leukocytosis , no clear source of infection. improved # h/o L renal resection # L leg and L gluteal stage 2 decubiti # H/o Asthma # microcytic anemia - most likely chronic iron studies do not indicate iron def. microcytic anemia might be due to ACD. repeat iron studies and further w/u as out pt DVt px: heparin sq
[2019-08-26] MEDS: GABAPENTIN 100 MG CAPSULE (FP) PO SCH ×3 (06:18→22:07)
[2019-08-26] MEDS: HEPARIN NA (PORCINE) 5,000 UNITS/ML 1ML VIAL SQ SCH ×3 (06:18→22:07)
[2019-08-26 07:40] LABS: BASO % 0.4 % (0-2.0); HEMATOCRIT 30.5 % (32.4-45.2); HEMOGLOBIN 9.9 GM/dL (10.7-15.3); LYMPH % 25.3 % (8-40); MCH 25.8 pg (25.7-33.7); MCHC 32.4 g/dl (32.0-36.0); MEAN CELL VOLUME 79.4 fl (80-96); MEAN PLT VOLUME 7.4 fl (7.5-11.1); MONO % 6.9 % (3.8-10.2); NEUT % 64.4 % (42.8-82.8); PLATELET COUNT 358 K/MM3 (134-434); RBC 3.85 M/mm3 (3.60-5.2); RDW 15.1 % (11.6-15.6); WHITE BLOOD COUNT 6.7 K/mm3 (4.0-10.0)
[2019-08-26 08:17] LABS: ALBUMIN 2.2 g/dl (3.4-5.0); BILIRUBIN,TOTAL 0.3 mg/dL (0.2-1); BLOOD UREA NITROGEN 6.9 mg/dL (7-18); CALCIUM 8.8 mg/dL (8.5-10.1); CREATININE 0.7 mg/dL (0.55-1.3); POTASSIUM 3.8 mmol/L (3.5-5.1)
--- NOTE | 2019-08-26 13:39 | PN ---
Physical Exam: SUBJECTIVE: Patient seen and examined. When asked how she is doing today, pt does not give clear answer. She is having b/l knee pain. OBJECTIVE: Vital Signs Period Temp Pulse Resp BP Sys/Parr Pulse Ox Last 24 Hr 98.5 F-98.8 F 69-79 18-20 120-151/47-65 96-96 GENERAL: The patient is awake, alert, and fully oriented, in no acute distress. Morbidly obese. HEAD: Normal with no signs of trauma. EYES: PERRL, extraocular movements intact, conjunctiva clear. ENT: Ears normal, nares patent, moist mucous membranes. NECK: Trachea midline, full range of motion LUNGS: Clear to auscultation bilaterally, no wheezes HEART: Regular rate and rhythm, no murmur ABDOMEN: Soft, non-tender to palpation, nondistended, normoactive bowel sounds EXTREMITIES: Warm, well-perfused, stage 1 ulcer on left calf bandaged; b/l lower extremities tender to touch, +1 pitting edema NEUROLOGICAL: Cranial nerves II through XII grossly intact. Normal speech. PSYCH: Normal mood, normal affect. SKIN: Warm, dry Laboratory Results - last 24 hr 08/26/19 08/26/19 06:48 06:48 WBC 6.7 RBC 3.85 Hgb 9.9 L Hct 30.5 L MCV 79.4 L MCH 25.8 MCHC 32.4 RDW 15.1 Plt Count 358 D MPV 7.4 L Absolute Neuts (auto) 4.3 Neutrophils % 64.4 Lymphocytes % 25.3 Monocytes % 6.9 Eosinophils % 3.0 Basophils % 0.4 Nucleated RBC % 0 Sodium 140 Potassium 3.8 Chloride 106 Carbon Dioxide 24 Anion Gap 10 BUN 6.9 L Creatinine 0.7 Est GFR (CKD-EPI)AfAm 95.51 Est GFR (CKD-EPI)NonAf 82.41 Random Glucose 93 Calcium 8.8 Magnesium 2.0 Total Bilirubin 0.3 AST 24 ALT 38 Alkaline Phosphatase 74 Total Protein 6.0 L Albumin 2.2 L Active Medications Generic Name Dose Route Start Last Admin Trade Name Freq PRN Reason Stop Dose Admin Albuterol Sulfate 1 amp 08/20/19 17:30 08/24/19 10:10 Ventolin 0.083% Nebulizer Soln - NEB 1 amp Q6H PRN Administration SHORT OF BREATH/WHEEZING Gabapentin 100 mg 08/20/19 22:00 08/26/19 06:18 Neurontin - PO 100 mg TID GISELA Administration Heparin Sodium (Porcine) 5,000 unit 08/20/19 22:00 08/26/19 06:18 Heparin - SQ 5,000 unit TID GISELA Administration Ondansetron HCl 4 mg 08/22/19 17:50 08/22/19 18:52 Zofran Injection IVPUSH 4 mg Q6H PRN Administration NAUSEA Sodium Chloride 2 spray 08/20/19 17:30 [place] Nasal [place] - NS TID PRN NASAL CONGESTION ASSESSMENT/PLAN: Ms. Kellogg is a 78y/o female with HTN, asthma, morbid obesity, osteoarthritis who presents following being found on the floor. #weakness -PT -encourage healthy dietary habits #b/l knee pain -right x-ray- degenerative changes -left x-ray- degenerative changes, possible joint effusion -ortho following- anticipate b/l steroid injections #abdominal pain -CT showed cecum thickening and irregularity, cannot r/o malignancy- encouraged colonoscopy prep but pt refused x3 -GI recommended CT with IV and PO contrast but pt refused radiation -pt was educated by multiple physicians about the importance of obtaining imaging to r/o cancer #b/l leg pain -gabapentin 100mg TID #stage 2 sacral ulcers #stage 1 left calf ulcer -blood cx negative -surgery consulted- Versatel dressing #anemia -of chronic disease vs less likely iron deficiency based off iron studies -stable, will monitor #onychomycosis -podiatry- debridement of nails done #HTN -non-compliant on meds -monitor #asthma -albuterol PRN #YAEL, resolved -U/S negative- both kidneys present #hypernatremia, resolved #hypophosphatemia #hypomagnesemia #non-compliance to medications -psych evaluated pt; pt has capacity DVT Ppx heparin FEN PO liquids monitor labs regular diet dispo med/surg Visit type - Emergency Visit Emergency Visit: Yes ED Registration Date: 08/15/19 Care time: The patient presented to the Emergency Department on the above date and was hospitalized for further evaluation of their emergent condition. - New Patient This patient is new to me today: No - Critical Care Critical Care patient: No - Discharge Referral Referred to [facility] Med P.C.: No ATTENDING PHYSICIAN STATEMENT I saw and evaluated the patient. I reviewed the resident's note and discussed the case with the resident. I agree with the resident's findings and plan as documented. SUBJECTIVE: OBJECTIVE: ASSESSMENT AND PLAN:
--- NOTE | 2019-08-26 14:20 | PN ---
Progress Note (short form) - Note Progress Note: GI follow up Pt continues to refuse to do either CT or colonoscopy, says too much for her right now. States she will comply as an outpatient.
--- NOTE | 2019-08-26 16:00 | PN ---
Progress Note, Physician History of Present Illness: Pt seen and examined at bedside. She is awake and alert. She denies shortness of breath. - Current Medication List Current Medications: Active Medications Albuterol Sulfate (Ventolin 0.083% Nebulizer Soln -) 1 amp NEB Q6H PRN PRN Reason: SHORT OF BREATH/WHEEZING Last Admin: 08/24/19 10:10 Dose: 1 amp Gabapentin (Neurontin -) 100 mg PO TID GISELA Last Admin: 08/26/19 15:09 Dose: 100 mg Heparin Sodium (Porcine) (Heparin -) 5,000 unit SQ TID GISELA Last Admin: 08/26/19 15:09 Dose: 5,000 unit Ondansetron HCl (Zofran Injection) 4 mg IVPUSH Q6H PRN PRN Reason: NAUSEA Last Admin: 08/22/19 18:52 Dose: 4 mg Sodium Chloride ([facility] [place]al [place] -) 2 spray NS TID PRN PRN Reason: NASAL CONGESTION - Objective Vital Signs: Vital Signs Temperature 98.8 F 08/26/19 11:11 Pulse Rate 79 08/26/19 11:11 Respiratory Rate 18 08/26/19 11:11 Blood Pressure 151/54 L 08/26/19 11:11 O2 Sat by Pulse Oximetry (%) 96 08/26/19 09:00 Constitutional: Yes: Calm Eyes: Yes: Conjunctiva Clear HENT: Yes: Atraumatic Cardiovascular: Yes: S1, S2 Respiratory: Yes: CTA Bilaterally Gastrointestinal: Yes: Soft, Abdomen, Obese Genitourinary: Yes: WNL Edema: Yes Edema: LLE: Trace, RLE: Trace Integumentary: Yes: WNL Neurological: Yes: Oriented Psychiatric: Yes: Oriented Labs: CBC, BMP 08/26/19 06:48 08/26/19 06:48 INR, PTT INR 1.06 (0.83-1.09) 08/22/19 07:13 Problem List - Problems (1) YAEL (acute kidney injury) Code(s): N17.9 - ACUTE KIDNEY FAILURE, UNSPECIFIED (2) Asthma Code(s): J45.909 - UNSPECIFIED ASTHMA, UNCOMPLICATED (3) Dehydration with hypernatremia Code(s): E87.0 - HYPEROSMOLALITY AND HYPERNATREMIA (4) Failure to thrive Code(s): LCH6718 - Qualifiers: Failure to thrive age range: in adult Qualified Code(s): R62.7 - Adult failure to thrive (5) HTN (hypertension) Code(s): I10 - ESSENTIAL (PRIMARY) HYPERTENSION Assessment/Plan Current Medications Generic Name Dose Route Start Last Admin Trade Name Freq PRN Reason Stop Dose Admin Albuterol Sulfate 1 amp 08/20/19 17:30 08/24/19 10:10 Ventolin 0.083% Nebulizer Soln - NEB 1 amp Q6H PRN Administration SHORT OF BREATH/WHEEZING Gabapentin 100 mg 08/20/19 22:00 08/26/19 15:09 Neurontin - PO 100 mg TID GISELA Administration Heparin Sodium (Porcine) 5,000 unit 08/20/19 22:00 08/26/19 15:09 Heparin - SQ 5,000 unit TID GISELA Administration Ondansetron HCl 4 mg 08/22/19 17:50 08/22/19 18:52 Zofran Injection IVPUSH 4 mg Q6H PRN Administration NAUSEA Sodium Chloride 2 spray 08/20/19 17:30 [facility] [place] Nasal [place] - NS TID PRN NASAL CONGESTION Impression 1. YAEL 2. hypernatremia 3. metabolic acidosis 4. htn 5. asthma 6. obesity 7. hypokalemia Plan - renal function remains stale - 2 gram sodium diet - avoid nsaids and nephrotoxins - encourage po intake - outpt follow up
--- NOTE | 2019-08-26 17:01 | PN ---
Teaching Attending Note Name of Resident: Tiffany Echevarria ATTENDING PHYSICIAN STATEMENT I saw and evaluated the patient. I reviewed the resident's note and discussed the case with the resident. I agree with the resident's findings and plan as documented. SUBJECTIVE: Patient is comfortable with no acute distress. Vital Signs Temperature 98.9 F 08/26/19 14:00 Pulse Rate 88 08/26/19 14:00 Respiratory Rate 18 08/26/19 14:00 Blood Pressure 130/69 08/26/19 14:00 O2 Sat by Pulse Oximetry (%) 96 08/26/19 09:00 GENERAL: The patient is awake, alert, and fully oriented, in no acute distress. HEAD: Normal with no signs of trauma. EYES: PERRL, extraocular movements intact, sclera anicteric, conjunctiva clear. ENT: Ears normal, oropharynx clear without exudates, moist mucous membranes. NECK: Trachea midline, full range of motion, supple. LUNGS: Breath sounds equal, clear to auscultation bilaterally, no wheezes, no crackles, no accessory muscle use. HEART: Regular rate and rhythm, S1, S2 without murmur, rub or gallop. ABDOMEN: Soft, nontender, nondistended, normoactive bowel sounds, no guarding, no rebound, no hepatosplenomegaly, no masses. EXTREMITIES: 2+ pulses, warm, well-perfused, no edema. NEUROLOGICAL: Cranial nerves II through XII grossly intact. Normal speech, gait not observed. PSYCH: Normal mood, normal affect. SKIN: Warm, dry, normal turgor, no rashes or lesions noted : positive for decubitus CBCD WBC 6.7 K/mm3 (4.0-10.0) 08/26/19 06:48 RBC 3.85 M/mm3 (3.60-5.2) 08/26/19 06:48 Hgb 9.9 GM/dL (10.7-15.3) L 08/26/19 06:48 Hct 30.5 % (32.4-45.2) L 08/26/19 06:48 MCV 79.4 fl (80-96) L 08/26/19 06:48 MCHC 32.4 g/dl (32.0-36.0) 08/26/19 06:48 RDW 15.1 % (11.6-15.6) 08/26/19 06:48 Plt Count 358 K/MM3 (134-434) D 08/26/19 06:48 MPV 7.4 fl (7.5-11.1) L 08/26/19 06:48 CMP Sodium 140 mmol/L (136-145) 08/26/19 06:48 Potassium 3.8 mmol/L (3.5-5.1) 08/26/19 06:48 Chloride 106 mmol/L (98-107) 08/26/19 06:48 Carbon Dioxide 24 mmol/L (21-32) 08/26/19 06:48 Anion Gap 10 MMOL/L (8-16) 08/26/19 06:48 BUN 6.9 mg/dL (7-18) L 08/26/19 06:48 Creatinine 0.7 mg/dL (0.55-1.3) 08/26/19 06:48 Random Glucose 93 mg/dL (74-106) 08/26/19 06:48 Calcium 8.8 mg/dL (8.5-10.1) 08/26/19 06:48 Total Bilirubin 0.3 mg/dL (0.2-1) 08/26/19 06:48 AST 24 U/L (15-37) 08/26/19 06:48 ALT 38 U/L (13-61) 08/26/19 06:48 Alkaline Phosphatase 74 U/L (45-117) 08/26/19 06:48 Total Protein 6.0 g/dl (6.4-8.2) L 08/26/19 06:48 Albumin 2.2 g/dl (3.4-5.0) L 08/26/19 06:48 Current Medications Generic Name Dose Route Start Last Admin Trade Name Freq PRN Reason Stop Dose Admin Albuterol Sulfate 1 amp 08/20/19 17:30 08/24/19 10:10 Ventolin 0.083% Nebulizer Soln - NEB 1 amp Q6H PRN Administration SHORT OF BREATH/WHEEZING Gabapentin 100 mg 08/20/19 22:00 08/26/19 15:09 Neurontin - PO 100 mg TID GISELA Administration Heparin Sodium (Porcine) 5,000 unit 08/20/19 22:00 08/26/19 15:09 Heparin - SQ 5,000 unit TID GISLEA Administration Ondansetron HCl 4 mg 08/22/19 17:50 08/22/19 18:52 Zofran Injection IVPUSH 4 mg Q6H PRN Administration NAUSEA Sodium Chloride 2 spray 08/20/19 17:30 [place] Nasal [place] - NS TID PRN NASAL CONGESTION Ct of the abdomen: thickening and irregularities of the cecum of uncertain etiology. aNEOPLASTIC PROCESS CANNOT BE EXCLUDED. Assessment and plan: Patient is a 78yo female with PMHx of HTN, Asthma, OA, obesity, who has no current medical care and on no meds who presented after she was not able to get up from the floor. she was found to have severe dehydration and YAEL # Thickening and irregularities of the cecum: patient is not able to drink the prep.for colonoscopy, refusing colonscopy at this time, GI recommending to have CT of abdomen and pelvis with oral and IV contrast, patient is refusing to have the CT abdomen and pelvis since afraid from the radiation at this time as well. patient is unable to ambulate , only 3 feet. possible rehab. #B/L knee pain (morbidly obese) Xray of the knees reviewed ,seen by ortho dr mcdonald, bl OA as per ortho, s/p steroid injection of the right knee, going for left knee injection next week as an outpatient . # Severe dehydration: improved # YAEL: likely due to volume depletion.Improved # Mild Rhabdo improved will dc IVF with Bicarb. # metabolic acidosis. lactic acid normalized. renal failure still contributing # leukocytosis , no clear source of infection. improved # h/o L renal resection # L leg and L gluteal stage 2 decubiti # H/o Asthma # microcytic anemia - most likely chronic iron studies do not indicate iron def. microcytic anemia might be due to ACD. repeat iron studies and further w/u as out pt DVt px: heparin sq
[2019-08-26] MEDS ORDERED: LIDOCAINE HCL 1%, 10 MG/ML (20ML VIAL) ONE (17:34)
--- NOTE | 2019-08-26 18:08 | PN ---
Progress Note (short form) - Note Progress Note: TODAY I ADMINISTERED A RIGHT KNEE INJECTION OF CORTISONE AND LIDOCAINE. i WILL GIVE HER AN INJECTION IN HER LEFT KNEE NEXT WEEK IF SHE IS STILL HERE. OTHERWISE IT CAN BE DONE AN OUTPATIENT
[2019-08-27] MEDS: GABAPENTIN 100 MG CAPSULE (FP) PO SCH ×3 (05:47→21:51)
[2019-08-27] MEDS: HEPARIN NA (PORCINE) 5,000 UNITS/ML 1ML VIAL SQ SCH ×3 (05:48→21:51)
[2019-08-27 07:44] LABS: BASO % 0.2 % (0-2.0); HEMATOCRIT 30.6 % (32.4-45.2); LYMPH % 9.1 % (8-40); MCH 25.8 pg (25.7-33.7); MCHC 32.6 g/dl (32.0-36.0); MEAN CELL VOLUME 79.2 fl (80-96); MONO % 1.4 % (3.8-10.2); NEUT % 89.3 % (42.8-82.8); PLATELET COUNT 367 K/MM3 (134-434); RBC 3.86 M/mm3 (3.60-5.2); RDW 15.2 % (11.6-15.6); WHITE BLOOD COUNT 5.9 K/mm3 (4.0-10.0)
[2019-08-27 08:19] LABS: ALBUMIN 2.2 g/dl (3.4-5.0); BILIRUBIN,TOTAL 0.3 mg/dL (0.2-1); BLOOD UREA NITROGEN 6.9 mg/dL (7-18); CALCIUM 8.4 mg/dL (8.5-10.1); CREATININE 0.9 mg/dL (0.55-1.3); POTASSIUM 4.2 mmol/L (3.5-5.1); TOT PROT 6.2 g/dl (6.4-8.2)
--- NOTE | 2019-08-27 12:36 | PN ---
Progress Note (short form) - Note Progress Note: GI will sign off at this time. patient non-compliant with treatment plan. Recall as needed Problem List - Problems (1) Abnormal CT of the abdomen Code(s): R93.5 - ABN FINDINGS ON DX IMAGING OF ABD REGIONS, INC RETROPERITON
--- NOTE | 2019-08-27 12:50 | PN ---
Teaching Attending Note Name of Resident: Tiffany Echevarria ATTENDING PHYSICIAN STATEMENT I saw and evaluated the patient. I reviewed the resident's note and discussed the case with the resident. I agree with the resident's findings and plan as documented. SUBJECTIVE: Patient is feeling better . no acute distress, no nausea or vomiting. Vital Signs Temperature 97.4 F L 08/27/19 09:00 Pulse Rate 87 08/27/19 09:00 Respiratory Rate 18 08/27/19 09:00 Blood Pressure 133/67 08/27/19 09:00 O2 Sat by Pulse Oximetry (%) 99 08/27/19 08:56 GENERAL: The patient is awake, alert, and fully oriented, in no acute distress. HEAD: Normal with no signs of trauma. EYES: PERRL, extraocular movements intact, sclera anicteric, conjunctiva clear. ENT: Ears normal, oropharynx clear without exudates, moist mucous membranes. NECK: Trachea midline, full range of motion, supple. LUNGS: Breath sounds equal, clear to auscultation bilaterally, no wheezes, no crackles, no accessory muscle use. HEART: Regular rate and rhythm, S1, S2 without murmur, rub or gallop. ABDOMEN: Soft, Nt,ND, normoactive bowel sounds, no guarding, no rebound, no hepatosplenomegaly, no masses. EXTREMITIES: 2+ pulses, warm, well-perfused, no edema. NEUROLOGICAL: Cranial nerves II through XII grossly intact. Normal speech, gait not observed. PSYCH: Normal mood, normal affect. SKIN: Warm, dry, normal turgor, no rashes or lesions noted : positive for decubitus CBCD WBC 5.9 K/mm3 (4.0-10.0) 08/27/19 06:45 RBC 3.86 M/mm3 (3.60-5.2) 08/27/19 06:45 Hgb 10.0 GM/dL (10.7-15.3) L 08/27/19 06:45 Hct 30.6 % (32.4-45.2) L 08/27/19 06:45 MCV 79.2 fl (80-96) L 08/27/19 06:45 MCHC 32.6 g/dl (32.0-36.0) 08/27/19 06:45 RDW 15.2 % (11.6-15.6) 08/27/19 06:45 Plt Count 367 K/MM3 (134-434) 08/27/19 06:45 MPV 7.0 fl (7.5-11.1) L 08/27/19 06:45 CMP Sodium 140 mmol/L (136-145) 08/27/19 06:45 Potassium 4.2 mmol/L (3.5-5.1) 08/27/19 06:45 Chloride 108 mmol/L (98-107) H 08/27/19 06:45 Carbon Dioxide 23 mmol/L (21-32) 08/27/19 06:45 Anion Gap 9 MMOL/L (8-16) 08/27/19 06:45 BUN 6.9 mg/dL (7-18) L 08/27/19 06:45 Creatinine 0.9 mg/dL (0.55-1.3) 08/27/19 06:45 Random Glucose 196 mg/dL (74-106) H 08/27/19 06:45 Calcium 8.4 mg/dL (8.5-10.1) L 08/27/19 06:45 Total Bilirubin 0.3 mg/dL (0.2-1) 08/27/19 06:45 AST 19 U/L (15-37) 08/27/19 06:45 ALT 34 U/L (13-61) 08/27/19 06:45 Alkaline Phosphatase 78 U/L (45-117) 08/27/19 06:45 Total Protein 6.2 g/dl (6.4-8.2) L 08/27/19 06:45 Albumin 2.2 g/dl (3.4-5.0) L 08/27/19 06:45 CARDIAC ENZYMES Creatine Kinase 488 U/L (26-192) H 08/16/19 05:00 Troponin I < 0.02 ng/ml (0.00-0.05) 08/16/19 05:00 Current Medications Generic Name Dose Route Start Last Admin Trade Name Freq PRN Reason Stop Dose Admin Albuterol Sulfate 1 amp 08/20/19 17:30 08/24/19 10:10 Ventolin 0.083% Nebulizer Soln - NEB 1 amp Q6H PRN Administration SHORT OF BREATH/WHEEZING Gabapentin 100 mg 08/20/19 22:00 08/27/19 05:47 Neurontin - PO 100 mg TID GISELA Administration Heparin Sodium (Porcine) 5,000 unit 08/20/19 22:00 08/27/19 05:48 Heparin - SQ 5,000 unit TID GISELA Administration Ondansetron HCl 4 mg 08/22/19 17:50 08/22/19 18:52 Zofran Injection IVPUSH 4 mg Q6H PRN Administration NAUSEA Sodium Chloride 2 spray 08/20/19 17:30 [place] Nasal [place] - NS TID PRN NASAL CONGESTION Microbiology 08/15/19 14:00 Blood - Peripheral Venous Blood Culture - Final NO GROWTH AFTER 5 DAYS INCUBATION 08/15/19 13:35 Blood - Peripheral Venous Blood Culture - Final NO GROWTH AFTER 5 DAYS INCUBATION 08/15/19 15:10 Urine - Urine - Catheterized Urine Culture - Final NO GROWTH OBTAINED Ct of the abdomen: thickening and irregularities of the cecum of uncertain etiology. aNEOPLASTIC PROCESS CANNOT BE EXCLUDED. Assessment and plan: Patient is a 78yo female with PMHx of HTN, Asthma, OA, obesity, who has no current medical care and on no meds who presented after she was not able to get up from the floor. she was found to have severe dehydration and YAEL # Thickening and irregularities of the cecum: patient is not able to drink the prep.for colonoscopy, refusing colonscopy at this time, GI recommending to have CT of abdomen and pelvis with oral and IV contrast, patient is refusing to have the CT abdomen and pelvis since afraid from the radiation at this time as well. patient is unable to ambulate , only 3 feet. possible rehab. #B/L knee pain (morbidly obese) Xray of the knees reviewed ,seen by ortho dr mcdonald, bl OA as per ortho,s/p right knee steroid injection , will follow up as an outpatient with left knee injection . # Severe dehydration: improved # YAEL: likely due to volume depletion.Improved # Mild Rhabdo improved will dc IVF with Bicarb. # metabolic acidosis. lactic acid normalized. renal failure still contributing # leukocytosis , no clear source of infection. improved # h/o L renal resection # L leg and L gluteal stage 2 decubiti # H/o Asthma # microcytic anemia - most likely chronic iron studies do not indicate iron def. microcytic anemia might be due to ACD. repeat iron studies and further w/u as out pt wheelchair/walker/ vns is being arranged by the SW. DVt px: heparin sq
--- NOTE | 2019-08-27 12:56 | PN ---
Physical Exam: SUBJECTIVE: Patient seen and examined. She reports right knee is sore post- injection. OBJECTIVE: Vital Signs Period Temp Pulse Resp BP Sys/Parr Pulse Ox Last 24 Hr 97.4 F-98.9 F 73-88 18-18 122-143/60-69 97-99 GENERAL: The patient is awake, alert, and fully oriented, in no acute distress. Morbidly obese. HEAD: Normal with no signs of trauma. EYES: PERRL, extraocular movements intact, conjunctiva clear. ENT: Ears normal, nares patent, moist mucous membranes. NECK: Trachea midline, full range of motion LUNGS: Clear to auscultation bilaterally, no wheezes HEART: Regular rate and rhythm, no murmur ABDOMEN: Soft, non-tender to palpation, nondistended, normoactive bowel sounds EXTREMITIES: Warm, well-perfused, stage 1 ulcer on left calf bandaged; b/l lower extremities tender to touch, +1 pitting edema; left knee swelling with no erythema NEUROLOGICAL: Cranial nerves II through XII grossly intact. Normal speech. PSYCH: Normal mood, normal affect. SKIN: Warm, dry Laboratory Results - last 24 hr 08/27/19 08/27/19 06:45 06:45 WBC 5.9 RBC 3.86 Hgb 10.0 L Hct 30.6 L MCV 79.2 L MCH 25.8 MCHC 32.6 RDW 15.2 Plt Count 367 MPV 7.0 L Absolute Neuts (auto) 5.2 Neutrophils % 89.3 H D Lymphocytes % 9.1 D Monocytes % 1.4 L Eosinophils % 0.0 D Basophils % 0.2 Nucleated RBC % 0 Sodium 140 Potassium 4.2 Chloride 108 H Carbon Dioxide 23 Anion Gap 9 BUN 6.9 L Creatinine 0.9 Est GFR (CKD-EPI)AfAm 70.48 Est GFR (CKD-EPI)NonAf 60.81 Random Glucose 196 H Calcium 8.4 L Phosphorus 3.0 Magnesium 2.0 Total Bilirubin 0.3 AST 19 ALT 34 Alkaline Phosphatase 78 Total Protein 6.2 L Albumin 2.2 L Active Medications Generic Name Dose Route Start Last Admin Trade Name Freq PRN Reason Stop Dose Admin Albuterol Sulfate 1 amp 08/20/19 17:30 08/24/19 10:10 Ventolin 0.083% Nebulizer Soln - NEB 1 amp Q6H PRN Administration SHORT OF BREATH/WHEEZING Gabapentin 100 mg 08/20/19 22:00 08/27/19 05:47 Neurontin - PO 100 mg TID GISELA Administration Heparin Sodium (Porcine) 5,000 unit 08/20/19 22:00 08/27/19 05:48 Heparin - SQ 5,000 unit TID GISELA Administration Ondansetron HCl 4 mg 08/22/19 17:50 08/22/19 18:52 Zofran Injection IVPUSH 4 mg Q6H PRN Administration NAUSEA Sodium Chloride 2 spray 08/20/19 17:30 [place] Nasal [place] - NS TID PRN NASAL CONGESTION ASSESSMENT/PLAN: Ms. Kellogg is a 78y/o female with HTN, asthma, morbid obesity, osteoarthritis who presents following being found on the floor. #weakness -PT -encourage healthy dietary habits -spoke to patient at length about discharge plans, she is only wanting home nursing services with physical therapy (refusing SNF), and is requesting DME #b/l knee pain -right x-ray- degenerative changes, joint injection done yesterday -left x-ray- degenerative changes, possible joint effusion -to do left side in 1 week #abdominal pain -CT showed cecum thickening and irregularity, cannot r/o malignancy- encouraged colonoscopy prep but pt refused x3 -GI recommended CT with IV and PO contrast but pt refused radiation -pt was educated by multiple physicians about the importance of obtaining imaging to r/o cancer #b/l leg pain -gabapentin 100mg TID #stage 2 sacral ulcers #stage 1 left calf ulcer -blood cx negative -surgery consulted- Versatel dressing #anemia -of chronic disease vs less likely iron deficiency based off iron studies -stable, will monitor #onychomycosis -podiatry- debridement of nails done #HTN -non-compliant on meds -monitor #asthma -albuterol PRN #YAEL, resolved -U/S negative- both kidneys present #hypernatremia, resolved #hypophosphatemia #hypomagnesemia #non-compliance to medications -psych evaluated pt; pt has capacity DVT Ppx heparin FEN PO liquids monitor labs regular diet dispo med/surg d/c pending arrangement of DME Visit type - Emergency Visit Emergency Visit: Yes ED Registration Date: 08/15/19 Care time: The patient presented to the Emergency Department on the above date and was hospitalized for further evaluation of their emergent condition. - New Patient This patient is new to me today: No - Critical Care Critical Care patient: No - Discharge Referral Referred to [facility] No ATTENDING PHYSICIAN STATEMENT I saw and evaluated the patient. I reviewed the resident's note and discussed the case with the resident. I agree with the resident's findings and plan as documented. SUBJECTIVE: OBJECTIVE: ASSESSMENT AND PLAN:
--- NOTE | 2019-08-27 15:23 | PN ---
Progress Note, Physician History of Present Illness: Pt seen and examined at bedside. She is awake and alert. She denies shortness of breath. - Current Medication List Current Medications: Active Medications Albuterol Sulfate (Ventolin 0.083% Nebulizer Soln -) 1 amp NEB Q6H PRN PRN Reason: SHORT OF BREATH/WHEEZING Last Admin: 08/24/19 10:10 Dose: 1 amp Gabapentin (Neurontin -) 100 mg PO TID GISELA Last Admin: 08/27/19 14:15 Dose: 100 mg Heparin Sodium (Porcine) (Heparin -) 5,000 unit SQ TID GISELA Last Admin: 08/27/19 14:15 Dose: 5,000 unit Ondansetron HCl (Zofran Injection) 4 mg IVPUSH Q6H PRN PRN Reason: NAUSEA Last Admin: 08/22/19 18:52 Dose: 4 mg Sodium Chloride ([place] Nasal [place] -) 2 spray NS TID PRN PRN Reason: NASAL CONGESTION - Objective Vital Signs: Vital Signs Temperature 97.4 F L 08/27/19 09:00 Pulse Rate 87 08/27/19 09:00 Respiratory Rate 18 08/27/19 09:00 Blood Pressure 133/67 08/27/19 09:00 O2 Sat by Pulse Oximetry (%) 99 08/27/19 08:56 Constitutional: Yes: Calm Eyes: Yes: Conjunctiva Clear HENT: Yes: Atraumatic Neck: Yes: Supple Cardiovascular: Yes: S1, S2 Respiratory: Yes: CTA Bilaterally Gastrointestinal: Yes: Soft Genitourinary: Yes: WNL Musculoskeletal: Yes: WNL Edema: No Neurological: Yes: Oriented Psychiatric: Yes: Oriented Labs: CBC, BMP 08/27/19 06:45 08/27/19 06:45 INR, PTT INR 1.06 (0.83-1.09) 08/22/19 07:13 Problem List - Problems (1) YAEL (acute kidney injury) Code(s): N17.9 - ACUTE KIDNEY FAILURE, UNSPECIFIED (2) Asthma Code(s): J45.909 - UNSPECIFIED ASTHMA, UNCOMPLICATED (3) Dehydration with hypernatremia Code(s): E87.0 - HYPEROSMOLALITY AND HYPERNATREMIA (4) Failure to thrive Code(s): CBP3579 - Qualifiers: Failure to thrive age range: in adult Qualified Code(s): R62.7 - Adult failure to thrive (5) HTN (hypertension) Code(s): I10 - ESSENTIAL (PRIMARY) HYPERTENSION Assessment/Plan Current Medications Generic Name Dose Route Start Last Admin Trade Name Freq PRN Reason Stop Dose Admin Albuterol Sulfate 1 amp 08/20/19 17:30 08/24/19 10:10 Ventolin 0.083% Nebulizer Soln - NEB 1 amp Q6H PRN Administration SHORT OF BREATH/WHEEZING Gabapentin 100 mg 08/20/19 22:00 08/27/19 14:15 Neurontin - PO 100 mg TID GISELA Administration Heparin Sodium (Porcine) 5,000 unit 08/20/19 22:00 08/27/19 14:15 Heparin - SQ 5,000 unit TID GISELA Administration Ondansetron HCl 4 mg 08/22/19 17:50 08/22/19 18:52 Zofran Injection IVPUSH 4 mg Q6H PRN Administration NAUSEA Sodium Chloride 2 spray 08/20/19 17:30 [place]al [place] - NS TID PRN NASAL CONGESTION Impression 1. YAEL 2. hypernatremia 3. metabolic acidosis 4. htn 5. asthma 6. obesity 7. hypokalemia Plan - avoid nephrotoxins - 2 gram sodium diet - avoid nsaids - encourage po intake - outpt follow up - renal function improved
[2019-08-27] MEDS: ALBUTEROL SO4 0.083% IH SOL 2.5 MG/3 ML VIAL.NEB. NEB PRN (19:07)
[2019-08-28] MEDS: GABAPENTIN 100 MG CAPSULE (FP) PO SCH ×3 (06:21→21:49)
[2019-08-28] MEDS: HEPARIN NA (PORCINE) 5,000 UNITS/ML 1ML VIAL SQ SCH ×3 (06:22→21:49)
[2019-08-28 08:33] LABS: BASO % 0.2 % (0-2.0); EOS % 0.1 % (0-4.5); HEMATOCRIT 29.6 % (32.4-45.2); HEMOGLOBIN 9.7 GM/dL (10.7-15.3); LYMPH % 15.1 % (8-40); MCH 26.1 pg (25.7-33.7); MCHC 32.6 g/dl (32.0-36.0); MEAN CELL VOLUME 79.9 fl (80-96); MEAN PLT VOLUME 7.1 fl (7.5-11.1); MONO % 7.3 % (3.8-10.2); NEUT % 77.3 % (42.8-82.8); PLATELET COUNT 399 K/MM3 (134-434); RDW 14.9 % (11.6-15.6); WHITE BLOOD COUNT 9.6 K/mm3 (4.0-10.0)
[2019-08-28 09:45] LABS: ALBUMIN 2.4 g/dl (3.4-5.0); BILIRUBIN,TOTAL 0.4 mg/dL (0.2-1); BLOOD UREA NITROGEN 11.6 mg/dL (7-18); CALCIUM 8.8 mg/dL (8.5-10.1); CREATININE 0.9 mg/dL (0.55-1.3); MAGNESIUM 2.2 mg/dL (1.8-2.4); POTASSIUM 4.3 mmol/L (3.5-5.1); TOT PROT 6.3 g/dl (6.4-8.2)
--- NOTE | 2019-08-28 10:47 | PN ---
Progress Note (short form) - Note Progress Note: SO FAR MINIMAL RESPONSE TO INJECTION INTO RIGHT KNEE CONTINUE PT AND I WILL GIVE SECOND INJECTION NEXT WEEK IN LEFT KNEE
--- NOTE | 2019-08-28 14:33 | PN ---
Progress Note, Physician History of Present Illness: Pt seen and examined. She denies shortness of breath. - Current Medication List Current Medications: Active Medications Albuterol Sulfate (Ventolin 0.083% Nebulizer Soln -) 1 amp NEB Q6H PRN PRN Reason: SHORT OF BREATH/WHEEZING Last Admin: 08/27/19 19:07 Dose: 1 amp Gabapentin (Neurontin -) 100 mg PO TID [facility] Last Admin: 08/28/19 06:21 Dose: 100 mg Heparin Sodium (Porcine) (Heparin -) 5,000 unit SQ TID GISELA Last Admin: 08/28/19 06:22 Dose: 5,000 unit Ondansetron HCl (Zofran Injection) 4 mg IVPUSH Q6H PRN PRN Reason: NAUSEA Last Admin: 08/22/19 18:52 Dose: 4 mg Sodium Chloride ([place] Nasal [place] -) 2 spray NS TID PRN PRN Reason: NASAL CONGESTION - Objective Vital Signs: Vital Signs Temperature 99.1 F 08/28/19 06:45 Pulse Rate 82 08/27/19 14:00 Respiratory Rate 18 08/28/19 06:45 Blood Pressure 113/56 L 08/28/19 06:45 O2 Sat by Pulse Oximetry (%) 99 08/27/19 21:00 Constitutional: Yes: Calm Eyes: Yes: Conjunctiva Clear HENT: Yes: Atraumatic Neck: Yes: Supple Cardiovascular: Yes: S1, S2 Respiratory: Yes: CTA Bilaterally Gastrointestinal: Yes: Soft, Abdomen, Obese Genitourinary: Yes: WNL Musculoskeletal: Yes: WNL Edema: Yes Edema: LLE: Trace, RLE: Trace Neurological: Yes: Oriented Psychiatric: Yes: Oriented Labs: CBC, BMP 08/28/19 07:15 08/28/19 07:15 INR, PTT INR 1.06 (0.83-1.09) 08/22/19 07:13 Problem List - Problems (1) YAEL (acute kidney injury) Code(s): N17.9 - ACUTE KIDNEY FAILURE, UNSPECIFIED (2) Asthma Code(s): J45.909 - UNSPECIFIED ASTHMA, UNCOMPLICATED (3) Dehydration with hypernatremia Code(s): E87.0 - HYPEROSMOLALITY AND HYPERNATREMIA (4) Failure to thrive Code(s): [id number] - Qualifiers: Failure to thrive age range: in adult Qualified Code(s): R62.7 - Adult failure to thrive (5) HTN (hypertension) Code(s): I10 - ESSENTIAL (PRIMARY) HYPERTENSION Assessment/Plan Current Medications Generic Name Dose Route Start Last Admin Trade Name Freq PRN Reason Stop Dose Admin Albuterol Sulfate 1 amp 08/20/19 17:30 08/27/19 19:07 Ventolin 0.083% Nebulizer Soln - NEB 1 amp Q6H PRN Administration SHORT OF BREATH/WHEEZING Gabapentin 100 mg 08/20/19 22:00 08/28/19 06:21 Neurontin - PO 100 mg TID GISELA Administration Heparin Sodium (Porcine) 5,000 unit 08/20/19 22:00 08/28/19 06:22 Heparin - SQ 5,000 unit TID GISELA Administration Ondansetron HCl 4 mg 08/22/19 17:50 08/22/19 18:52 Zofran Injection IVPUSH 4 mg Q6H PRN Administration NAUSEA Sodium Chloride 2 spray 08/20/19 17:30 [place] Nasal [place] - NS TID PRN NASAL CONGESTION Impression 1. YAEL 2. hypernatremia 3. metabolic acidosis 4. htn 5. asthma 6. obesity 7. hypokalemia Plan - stable off of fluids - no need for lasix at this point - monitor volume status - recommend weight loss - outpt follow up - renal function improved
--- NOTE | 2019-08-28 17:39 | PN ---
Progress Note (short form) - Note Progress Note: Subjective: painin knees. No SOB or CP . walked few steps with PT. Objective: Vital Signs: Last Vital Signs Temp Pulse Resp BP Pulse Ox 98.0 F 91 H 18 167/52 L 99 08/28/19 16:27 08/28/19 16:27 08/28/19 16:27 08/28/19 16:27 08/27/19 21:00 Laboratory Results - last 24 hr 08/28/19 08/28/19 07:15 07:15 WBC 9.6 RBC 3.70 Hgb 9.7 L Hct 29.6 L MCV 79.9 L MCH 26.1 MCHC 32.6 RDW 14.9 Plt Count 399 MPV 7.1 L Absolute Neuts (auto) 7.4 Neutrophils % 77.3 Lymphocytes % 15.1 D Monocytes % 7.3 D Eosinophils % 0.1 D Basophils % 0.2 Nucleated RBC % 0 Sodium 140 Potassium 4.3 Chloride 106 Carbon Dioxide 25 Anion Gap 9 BUN 11.6 Creatinine 0.9 Est GFR (CKD-EPI)AfAm 70.48 Est GFR (CKD-EPI)NonAf 60.81 Random Glucose 108 H Calcium 8.8 Magnesium 2.2 Total Bilirubin 0.4 AST 17 ALT 29 Alkaline Phosphatase 74 Total Protein 6.3 L Albumin 2.4 L Physical Exam: NAD, MMM CV: RRR, no MRG Lungs: CTAB Abd: obese, NT, ND . Ext: s. no edema, no erythema. warm L knee . ASSESSMENT AND PLAN: 78 y/o lady with h/o HTN, Asthma, OA, obesity, who has no current medical care and on no meds who presented after she was not able to get up from the floor. she was found to have severe dehydration and YAEL 1- Severe dehydration: resolved 2- YAEL: resolved 3- Mild Rhabdo : resolved 4- metabolic acidosis. resolved 5- leukocytosis ,resolved 6- Microcytic anemia 7- L leg and L gluteal stage 2 decubiti 8- H/o Asthma Plan: - cont to refuse colonoscopy. - agrees to rehab placement - for L knee steroid injection when ortho is available - anemia work up to cont as out p t - DVT Px medically ready for dc , pending placement Visit type - Emergency Visit Emergency Visit: Yes ED Registration Date: 08/15/19 Care time: The patient presented to the Emergency Department on the above date and was hospitalized for further evaluation of their emergent condition. - New Patient This patient is new to me today: No - Critical Care Critical Care patient: No
[2019-08-28] MEDS ORDERED: MAG HYDROX/AL HYDROX/SIMETH -MYLANTA- ORAL SUSPENSION PO ONE (21:58)
[2019-08-28] MEDS ORDERED: MAG HYDROX/AL HYDROX/SIMETH 30 ML UNIT-DOSE CUP PO ONE (22:15)
[2019-08-29] MEDS: GABAPENTIN 100 MG CAPSULE (FP) PO SCH ×3 (05:43→21:21)
[2019-08-29] MEDS: HEPARIN NA (PORCINE) 5,000 UNITS/ML 1ML VIAL SQ SCH ×3 (05:43→21:21)
--- NOTE | 2019-08-29 13:16 | PN ---
Physical Exam: SUBJECTIVE: Patient seen and examined. She reports right knee pain and left side abdominal pain. She reports having indigestion overnight but was relieved with Mylanta. OBJECTIVE: Vital Signs Period Temp Pulse Resp BP Sys/Parr Pulse Ox Last 24 Hr 98.0 F-98.8 F 65-95 18-18 129-167/52-66 GENERAL: The patient is awake, alert, and fully oriented, in no acute distress. Morbidly obese. HEAD: Normal with no signs of trauma. EYES: PERRL, extraocular movements intact, conjunctiva clear. ENT: Ears normal, nares patent, moist mucous membranes. NECK: Trachea midline, full range of motion LUNGS: Clear to auscultation bilaterally, no wheezes HEART: Regular rate and rhythm, no murmur ABDOMEN: Soft, non-tender to palpation, nondistended, normoactive bowel sounds EXTREMITIES: Warm, well-perfused, stage 1 ulcer on left calf bandaged; +1 pitting edema; left knee swelling with no erythema NEUROLOGICAL: Cranial nerves II through XII grossly intact. Normal speech. PSYCH: Normal mood, normal affect. SKIN: Warm, dry Active Medications Generic Name Dose Route Start Last Admin Trade Name Freq PRN Reason Stop Dose Admin Albuterol Sulfate 1 amp 08/20/19 17:30 08/27/19 19:07 Ventolin 0.083% Nebulizer Soln - NEB 1 amp Q6H PRN Administration SHORT OF BREATH/WHEEZING Gabapentin 100 mg 08/20/19 22:00 08/29/19 05:43 Neurontin - PO 100 mg TID GISELA Administration Heparin Sodium (Porcine) 5,000 unit 08/20/19 22:00 08/29/19 05:43 Heparin - SQ 5,000 unit TID GISELA Administration Ondansetron HCl 4 mg 08/22/19 17:50 08/22/19 18:52 Zofran Injection IVPUSH 4 mg Q6H PRN Administration NAUSEA Sodium Chloride 2 spray 08/20/19 17:30 [place] Nasal [place] - NS TID PRN NASAL CONGESTION ASSESSMENT/PLAN: Ms. Kellogg is a 78y/o female with HTN, asthma, morbid obesity, osteoarthritis who presents following being found on the floor. #failure to thrive -PT -encourage healthy dietary habits -placement #b/l knee pain -right x-ray- degenerative changes, joint injected this week -left x-ray- degenerative changes, possible joint effusion- to be injected next week and can be done out patient #abdominal pain -CT showed cecum thickening and irregularity, cannot r/o malignancy- encouraged colonoscopy prep but pt refused x3 -GI recommended CT with IV and PO contrast but pt refused radiation -pt was educated by multiple physicians about the importance of obtaining imaging to r/o cancer #b/l leg pain -gabapentin 100mg TID #stage 2 sacral ulcers #stage 1 left calf ulcer -blood cx negative -surgery consulted- Versatel dressing #anemia -of chronic disease vs less likely iron deficiency based off iron studies -stable, will monitor #onychomycosis -podiatry- debridement of nails done #HTN -non-compliant on meds -monitor #asthma -albuterol PRN #YAEL, resolved -U/S negative- both kidneys present #hypernatremia, resolved #hypophosphatemia #hypomagnesemia #non-compliance to medications -psych evaluated pt; pt has capacity DVT Ppx heparin FEN PO liquids monitor labs regular diet dispo Patient is medically stable for discharge. When I told her she was accepted to SNF today, she initially refused it and stated she wanted to go home. I explained to her that there are risks of going home, including falling and injuring herself again. She now wants to discuss SNF vs home (with VNS and out pt PT) with her daughter, whom she is trying to contact now. Social work is also actively involved, speaking to patient and trying to contact daughter to plan discharge. Visit type - Emergency Visit Emergency Visit: Yes ED Registration Date: 08/15/19 Care time: The patient presented to the Emergency Department on the above date and was hospitalized for further evaluation of their emergent condition. - New Patient This patient is new to me today: No - Critical Care Critical Care patient: No - Discharge Referral Referred to [facility] Med P.C.: No ATTENDING PHYSICIAN STATEMENT I saw and evaluated the patient. I reviewed the resident's note and discussed the case with the resident. I agree with the resident's findings and plan as documented. SUBJECTIVE: OBJECTIVE: ASSESSMENT AND PLAN:
[2019-08-29] MEDS ORDERED: MAG HYDROX/AL HYDROX/SIMETH 30 ML UNIT-DOSE CUP PO PRN (14:59)
--- NOTE | 2019-08-29 15:53 | PN ---
Progress Note, Physician History of Present Illness: Pt seen and examined at bedside. She has no complaints. She is tolerating diet. - Current Medication List Current Medications: Active Medications Al Hydroxide/Mg Hydroxide (Mylanta Oral Suspension -) 30 ml PO Q6H PRN PRN Reason: DYSPEPSIA Albuterol Sulfate (Ventolin 0.083% Nebulizer Soln -) 1 amp NEB Q6H PRN PRN Reason: SHORT OF BREATH/WHEEZING Last Admin: 08/27/19 19:07 Dose: 1 amp Gabapentin (Neurontin -) 100 mg PO TID GISELA Last Admin: 08/29/19 14:47 Dose: 100 mg Heparin Sodium (Porcine) (Heparin -) 5,000 unit SQ TID GISELA Last Admin: 08/29/19 14:48 Dose: Not Given Ondansetron HCl (Zofran Injection) 4 mg IVPUSH Q6H PRN PRN Reason: NAUSEA Last Admin: 08/22/19 18:52 Dose: 4 mg Sodium Chloride ([place] Nasal [place] -) 2 spray NS TID PRN PRN Reason: NASAL CONGESTION - Objective Vital Signs: Vital Signs Temperature 98.6 F 08/29/19 06:59 Pulse Rate 65 08/29/19 06:59 Respiratory Rate 18 08/29/19 06:59 Blood Pressure 136/59 L 08/29/19 06:59 O2 Sat by Pulse Oximetry (%) 99 08/27/19 21:00 Constitutional: Yes: Calm Eyes: Yes: Conjunctiva Clear HENT: Yes: Atraumatic Neck: Yes: Supple Cardiovascular: Yes: S1, S2 Respiratory: Yes: CTA Bilaterally Gastrointestinal: Yes: Soft Genitourinary: Yes: WNL Musculoskeletal: Yes: WNL Edema: Yes Edema: LLE: Trace, RLE: Trace Neurological: Yes: Oriented Psychiatric: Yes: Oriented Labs: CBC, BMP 08/28/19 07:15 08/28/19 07:15 INR, PTT INR 1.06 (0.83-1.09) 08/22/19 07:13 Problem List - Problems (1) YAEL (acute kidney injury) Code(s): N17.9 - ACUTE KIDNEY FAILURE, UNSPECIFIED (2) Asthma Code(s): J45.909 - UNSPECIFIED ASTHMA, UNCOMPLICATED (3) Dehydration with hypernatremia Code(s): E87.0 - HYPEROSMOLALITY AND HYPERNATREMIA (4) Failure to thrive Code(s): FNO0024 - Qualifiers: Failure to thrive age range: in adult Qualified Code(s): R62.7 - Adult failure to thrive (5) HTN (hypertension) Code(s): I10 - ESSENTIAL (PRIMARY) HYPERTENSION Assessment/Plan Current Medications Generic Name Dose Route Start Last Admin Trade Name Freq PRN Reason Stop Dose Admin Al Hydroxide/Mg Hydroxide 30 ml 08/29/19 14:59 Mylanta Oral Suspension - PO Q6H PRN DYSPEPSIA Albuterol Sulfate 1 amp 08/20/19 17:30 08/27/19 19:07 Ventolin 0.083% Nebulizer Soln - NEB 1 amp Q6H PRN Administration SHORT OF BREATH/WHEEZING Gabapentin 100 mg 08/20/19 22:00 08/29/19 14:47 Neurontin - PO 100 mg TID GISELA Administration Heparin Sodium (Porcine) 5,000 unit 08/20/19 22:00 08/29/19 14:48 Heparin - SQ Not Given TID GISELA Ondansetron HCl 4 mg 08/22/19 17:50 08/22/19 18:52 Zofran Injection IVPUSH 4 mg Q6H PRN Administration NAUSEA Sodium Chloride 2 spray 08/20/19 17:30 [place] Nasal [place] - NS TID PRN NASAL CONGESTION Impression 1. YAEL 2. hypernatremia 3. metabolic acidosis 4. htn 5. asthma 6. obesity 7. hypokalemia Plan - repeat ua if she agrees to give urine - can see in office - volume status is stable - recommend weight loss - outpt follow up - renal function is stable
--- NOTE | 2019-08-29 15:59 | PN ---
Teaching Attending Note Name of Resident: Tiffany Echevarria ATTENDING PHYSICIAN STATEMENT I saw and evaluated the patient. I reviewed the resident's note and discussed the case with the resident. I agree with the resident's findings and plan as documented. SUBJECTIVE: No fever or chills. No CARRERA . pain in abd and lower extremities OBJECTIVE: NAD, MMM. CV: RRR, no MRG. Lungs: CTAB. Abd: obese, NT, ND. Ext: no edema, no erythema. nl temperature of skin over the knees ASSESSMENT AND PLAN: 78 y/o lady with h/o HTN, Asthma, OA, obesity, who has no current medical care and on no meds who presented after she was not able to get up from the floor. she was found to have severe dehydration and YAEL 1- Severe dehydration: resolved 2- YAEL: resolved 3- Mild Rhabdo: resolved 4- Metabolic acidosis. resolved 5- leukocytosis ,resolved 6- Microcytic anemia 7- L leg and L gluteal stage 2 decubiti. 8- H/o Asthma Plan: - out pt colonoscopy when patient is agreeable - for L knee steroid injection when ortho is available. can be done as out pt - anemia work up to cont as out pt - DVT Px - patient changes her mind about placement every day. discharge plan to be discussed with her and her daughter again. if she declines rehab, then she can be discharged home with services . medically ready for dc
[2019-08-29] MEDS: ALBUTEROL SO4 0.083% IH SOL 2.5 MG/3 ML VIAL.NEB. NEB PRN (21:12)
[2019-08-30] MEDS ORDERED: DOCUSATE SODIUM 100 MG CAPSULE (FP) PO ONE (06:14)
[2019-08-30] MEDS: GABAPENTIN 100 MG CAPSULE (FP) PO SCH (06:38)
[2019-08-30] MEDS: HEPARIN NA (PORCINE) 5,000 UNITS/ML 1ML VIAL SQ SCH (06:38)
[2019-08-30 11:32] VITALS: BP 129/54; PULSE 84; TEMP 98.6
--- NOTE | 2019-08-30 14:12 | DS ---
Physical Exam: SUBJECTIVE: Patient seen and examined. She reports continued generalized pain and weakness. OBJECTIVE: Vital Signs Period Temp Pulse Resp BP Sys/Parr Pulse Ox Last 24 Hr 98.5 F-98.7 F 78-99 16-20 115-141/54-74 PHYSICAL EXAM GENERAL: The patient is awake, alert, and fully oriented, in no acute distress. Morbidly obese. HEAD: Normal with no signs of trauma. EYES: PERRL, extraocular movements intact, conjunctiva clear. ENT: Ears normal, nares patent, moist mucous membranes. NECK: Trachea midline, full range of motion LUNGS: Clear to auscultation bilaterally, no wheezes HEART: Regular rate and rhythm, no murmur ABDOMEN: Soft, non-tender to palpation, nondistended, normoactive bowel sounds EXTREMITIES: Warm, well-perfused, stage 1 ulcer on left calf bandaged; +1 pitting edema; left knee swelling with no erythema NEUROLOGICAL: Cranial nerves II through XII grossly intact. Normal speech. PSYCH: Normal mood, normal affect. SKIN: Warm, dry HOSPITAL COURSE: Ms. Kellogg is a 78y/o female with HTN, asthma, morbid obesity, osteoarthritis who presented following being found on the floor for 5 days. She had generalized pain, failure to thrive, YAEL, mild rhabdomyolysis, and was hypernatremic to 165 at presentation. She was given IV fluids to slowly correct sodium. She also was hypophosphatemic and hypomagnesemic and was repleted. Renal U/S was performed to r/u YAEL causes, and it was found that both kidneys were present. Pt was unsure but thought she had a nephrectomy in the 1970s. Kidney function did improve. She also had stage 2 sacral ulcer with smaller ulcers on buttocks and stage 1 ulcer on left calf. She also had a fungal rash under pannus. Blood cultures were negative. Ulcers were dressed with versatel and fungal rash was improved with nystatin. Pt reported continued abdominal pain. CT showed cecum thickening and irregularity for which malignancy could not be ruled out. Pt attempted bowel prep for colonoscopy x3 but did not finish prep and refused CT with contrast because of radiation. It was discussed with her at length by multiple physicians the importance of imaging to rule out cancer. Pt also reported b/l leg and knee pain. Ortho injected the right knee with steroids and left one is able to be done out patient. She was started on low- dose gabapentin 100mg TID and was told PCP could up titrate as needed for neuropathy. Podiatry debrided onychomycotic toe nails. PT was done with patient as well. She was able to walk 15ft with walker. Pt was also found to be anemic which could be from chronic disease vs less likely iron deficiency. Pt reports not having been to PCP in over a year; therefore, she was not on HTN meds or albuterol for asthma. Pt was not able to care for herself at home, and she was discharged to SNF with the encouragement of her daughter. Pt did have capacity for decision-making per psychiatry. She was instructed to follow up with primary care, GI, ortho, nephro , and wound care. Date of Admission:08/15/19 Date of Discharge: 08/30/19 Minutes to complete discharge: 35 Discharge Summary Problems reviewed: Yes Reason For Visit: FAILURE TO THRIVE Condition: Improved - Instructions Diet, Activity, Other Instructions: YOUR VISIT: You were admitted to the hospital for dehydration and pain. You were given IV fluids. A colonoscopy and CAT scan were recommended because of an abnormality on your 1st CAT scan, but you declined. You were also given a steroid injection in your right knee for pain. You are medically stable for discharge and will continue physical therapy at another facility. MEDICATIONS: gabapentin 100mg three times a day albuterol 1-2 puffs every 6 hours as needed for shortness of breath or wheezing senna and colace fro bowel regimen FOLLOW UP: Dr. Daly, primary care, or your primary care physician, 1 week after discharge. You should have your electrolytes and kidney function checked in 1 week . You should be re-checked for anemia. Dr. Del Rosario, orthopedics, as soon as possible for your left knee injection. Dr. Sanches, wound care, 1 week after discharge for ulcers. Dr. Khan, gastroenterology, 2 weeks after discharge. You will need to have a CAT scan or colonoscopy. Dr. Escamilla, podiatry, as needed for toe nails. Dr. Corona, nephrology, as needed if your kidney function worsens. OTHER INSTRUCTIONS: Return to the emergency room or call 911 if you have chest pain, difficulty breathing, worsening weakness, or fever above 101. Limit your sodium intake to less than 2000mg a day. WOUND CARE: Prevent further breakdown of sacral and leg ulcers; wounds can be dressed w/ Versatel as needed; keep patient off her side Referrals: David Daly MD [Staff Physician] - 1 Week (Please follow up with Dr Daly in 1 week for primary care ) Nuno Khan DO [Staff Physician] - 2 Weeks Ellis Del Rosario MD [Staff Physician] - 1 Week Kulwinder Sanches DO [Staff Physician] - 1 Week Darrel Corona MD [Staff Physician] - Jonny Escamilla MD [Staff Physician] - Disposition: HALF-WAY FACILITY - Home Medications Comprehensive Discharge Medication List: Ambulatory Orders Albuterol Sulfate Inhaler - [Ventolin HFA Inhaler -] 1 - 2 inh PO Q6H PRN #1 inhaler 08/30/19 Docusate Sodium [Colace -] 100 mg PO BID #60 capsule 08/30/19 Gabapentin [Neurontin -] 100 mg PO TID capsule 08/30/19 Sennosides [Senna] 8.6 mg PO DAILY #30 capsule 08/30/19 This patient is new to me today: No Emergency Visit: Yes ED Registration Date: 08/15/19 Care time: The patient presented to the Emergency Department on the above date and was hospitalized for further evaluation of their emergent condition. Critical Care patient: No - Discharge Referral Referred to [facility] Med P.C.: No ATTENDING PHYSICIAN STATEMENT I saw and evaluated the patient. I reviewed the resident's note and discussed the case with the resident. I agree with the resident's findings and plan as documented. SUBJECTIVE: OBJECTIVE: ASSESSMENT AND PLAN:
--- NOTE | 2019-08-30 19:27 | PN ---
Teaching Attending Note Name of Resident: Tiffany Echevarria ATTENDING PHYSICIAN STATEMENT I saw and evaluated the patient. I reviewed the resident's note and discussed the case with the resident. I agree with the resident's findings and plan as documented. SUBJECTIVE: No fever or chills. No CARRERA pain in legs OBJECTIVE: NAD, MMM. CV: RRR, no MRG. Abd: obese, NT, ND. ASSESSMENT AND PLAN: 78 y/o lady with h/o HTN, Asthma, OA, obesity, who has no current medical care and on no meds who presented after she was not able to get up from the floor. she was found to have severe dehydration and YAEL 1- Severe dehydration: resolved 2- YAEL: resolved 3- Mild Rhabdo: resolved 4- Metabolic acidosis. resolved 5- leukocytosis ,resolved 6- Microcytic anemia 7- L leg and L gluteal stage 2 decubiti. 8- H/o Asthma Plan: - out pt colonoscopy when patient is agreeable - f/u with ortho as out pt for steroid injectionof L knee - anemia work up to cont as out pt - DVT Px rehab dc
== END 2019-08-30 12:45 | DRG 683 ==
LOC: JER 12:50 → JERBED 18:18 → J4W 08-16 19:49 → J5S 08-20 15:24
PROVIDERS: ADMIT Internal Medicine; ATTEND Internal Medicine
PROC: 0HBRXZZ Excision of Toe Nail, External Approach (ICD-10-PCS; principal; 2019-08-21)
DX: N17.9 Acute kidney failure, unspecified (principal); M62.82 Rhabdomyolysis; Z68.43 Body mass index [BMI] 50.0-59.9, adult; E87.0 Hyperosmolality and hypernatremia; E87.2 Acidosis; R62.7 Adult failure to thrive; J45.909 Unspecified asthma, uncomplicated; I10 Essential (primary) hypertension; L89.322 Pressure ulcer of left buttock, stage 2; R93.5 Abnormal findings on diagnostic imaging of other abdominal regions, including retroperitoneum; E86.0 Dehydration; D72.829 Elevated white blood cell count, unspecified; D50.9 Iron deficiency anemia, unspecified; B35.1 Tinea unguium; E83.39 Other disorders of phosphorus metabolism; E83.42 Hypomagnesemia; Z91.14 Patient's other noncompliance with medication regimen; E87.6 Hypokalemia
CPT/HCPCS: 36415; 70450-TC; 71045-TC-FY; 72125-TC; 73560-TC-LT-FY; 73560-TC-RT-FY; 74176-TC; 76775-TC; 80048; 80053; 81003; 82550; 82553; 82728; 82803; 83540; 83550; 83605; 83735; 84100; 84295; 84443; 84484; 85025; 85027; 85610; 85730; 87040; 87086; 93005; 93010; 94640; 97116-GP; 97161-GP; 99285-25; J1644; J7030; Q9967

== ENCOUNTER 2020-05-07 08:18 | Observation (INO) | payer OTHER ==
[2020-05-07] MEDS ORDERED: ALBUTEROL SO4 2.5/IPRATROPIUM 0.5 INH SOL 3 ML VIAL.NEB. NEB ONE ×2 (08:59→09:11)
[2020-05-07] MEDS ORDERED: ASPIRIN 81 MG CHEWABLE TABLETS PO ONE (09:00)
[2020-05-07] MEDS ORDERED: ASPIRIN 81 MG CHEWABLE TABLETS ONE (09:11)
--- NOTE | 2020-05-07 09:14 | PDOC ---
History of Present Illness - General Chief Complaint: Shortness of Breath Stated Complaint: ASTHMA Time Seen by Provider: 05/07/20 08:46 - History of Present Illness Initial Comments: 05/07/20 09:01 79 y/o F hx of depression, diabetes, htn, asthma presenting today with shortness of breath and wheezing this a.m a few hours ago. Pt reports wheezing has resolved but she is still experiencing chest tightness. she reporst running out of her medications the last few weeks, and not having primary care doctor for the last 4 months. PMHx: as noted above ROS: as noted SHx: occasiona alcohol use. Allergies: acetaminophen, penec illin, propoxyphene napsylate. ROS: GENERAL/CONSTITUTIONAL: No fever or chills. No weakness. HEAD, EYES, EARS, NOSE AND THROAT: No change in vision. No ear pain or discharge. No sore throat. CARDIOVASCULAR: No chest pain or shortness of breath RESPIRATORY: No cough, wheezing, or hemoptysis. GASTROINTESTINAL: No nausea, vomiting, diarrhea or constipation. GENITOURINARY: No dysuria, frequency, or change in urination. MUSCULOSKELETAL: No joint or muscle swelling or pain. No neck or back pain. SKIN: No rash NEUROLOGIC: No headache, vertigo, loss of consciousness, or change in strength/sensation. ENDOCRINE: No increased thirst. No abnormal weight change HEMATOLOGIC/LYMPHATIC: No anemia, easy bleeding, or history of blood clots. ALLERGIC/IMMUNOLOGIC: No hives or skin allergy. PE: GENERAL: Awake, alert, and fully oriented, in no acute distress HEAD: No signs of trauma, normocephalic, atraumatic EYES: PERRLA, EOMI, sclera anicteric, conjunctiva clear ENT: Auricles normal inspection, hearing grossly normal, nares patent, oropharynx clear without exudates. Moist mucosa NECK: Normal ROM, supple, no lymphadenopathy, JVD, or masses LUNGS: No distress, speaks full sentences, clear to auscultation bilaterally HEART: Regular rate and rhythm, normal S1 and S2, no murmurs, rubs or gallops, peripheral pulses normal and equal bilaterally. ABDOMEN: Soft, nontender, normoactive bowel sounds. No guarding, no rebound. No masses EXTREMITIES : Normal inspection, Normal range of motion, bilateral swelling, no pitting edema. No clubbing or cyanosis NEUROLOGICAL: Cranial nerves II through XII grossly intact. Normal speech, normal gait, no focal sensorimotor deficits SKIN: Warm, Dry, normal turgor, no rashes or lesions noted MDM DDx including but not limited to: asthma, pneumonia,acs. covid, p.e, Workup: labs, d-dimer, albuterol mdi TX: Scores - HEART score -Wells criteria 1.5 - EKG: NSR, 100bpm HR, qtc 441, qrs 74ms, pr interval 148 t wi in v2,v3, v4, which are new compared to previous ekg (2019) ED course elevated d-dimer 1410 CR 2.7 v/q scan ordered as opposed to cta due to ckd, pt given lovenox (renally dosed) CXR: admiittedf for further management. meds: Re-assessment: 05/07/20 09:22 05/07/20 14:53 05/07/20 14:58 Past History - Medical History Allergies/Adverse Reactions: Allergies Allergy/AdvReac Type Severity Reaction Status Date / Time acetaminophen Allergy Difficulty Verified 05/07/20 08:30 [From Darvocet-N 100] Breathing egg Allergy Verified 05/08/20 09:14 egg yolk Allergy Verified 05/08/20 09:14 Penicillins Allergy Rash Verified 05/07/20 08:30 propoxyphene napsylate Allergy Difficulty Verified 05/07/20 08:30 [From Darvocet-N 100] Breathing Home Medications: Ambulatory Orders Docusate Sodium [Colace -] 100 mg PO BID #60 capsule 08/30/19 Gabapentin [Neurontin -] 100 mg PO TID capsule 08/30/19 Sennosides [Senna] 8.6 mg PO DAILY #30 capsule 08/30/19 Albuterol Sulfate Inhaler - [Ventolin HFA Inhaler -] 1 - 2 inh PO Q6H PRN #1 inhaler 05/09/20 Asthma: Yes COPD: No Diabetes: Yes HTN: Yes Psychiatric Problems: Yes (DEPRESSION) - Psycho-Social/Smoking History Smoking History: Unknown if ever smoked Have you smoked in the past 12 months: No - Substance Abuse Hx (Audit-C & DAST Scrn) How often the patient has a drink containing alcohol: Never Score: In Men: 4 or > Positive; In Women: 3 or > Positive: 0 Screen Result (Pos requires Nsg. Audit-10AR): Negative *Physical Exam - Vital Signs Last Vital Signs Temp Pulse Resp BP Pulse Ox 97.8 F 100 H 20 156/98 100 05/07/20 08:29 05/07/20 08:29 05/07/20 08:29 05/07/20 08:29 05/07/20 08:29 ED Treatment Course - LABORATORY CBC & Chemistry Diagram: 05/09/20 07:05 05/09/20 07:05 - RADIOLOGY Radiology Studies Ordered: Category Date Time Status CHEST X-RAY PORTABLE* [RAD] Stat Radiology 05/07/20 08:59 Ordered Discharge - Discharge Information Problems reviewed: Yes Clinical Impression/Diagnosis: Shortness of breath Disposition: VNS/HOME HEALTH CARE - Follow up/Referral - Patient Discharge Instructions - Post Discharge Activity
[2020-05-07] MEDS ORDERED: ALBUTEROL SO4 HFA INHALER IH ONE ×2 (09:20)
[2020-05-07 10:39] LABS: BASO % 0.3 % (0-2.0); EOS % 0.1 % (0-4.5); HEMATOCRIT 42.4 % (32.4-45.2); HEMOGLOBIN 13.6 GM/dL (10.7-15.3); LYMPH % 11.1 % (8-40); MCH 25.2 pg (25.7-33.7); MCHC 32.1 g/dl (32.0-36.0); MEAN CELL VOLUME 78.4 fl (80-96); MEAN PLT VOLUME 7.2 fl (7.5-11.1); NEUT % 82.5 % (42.8-82.8); PLATELET COUNT 355 K/MM3 (134-434); RDW 16.2 % (11.6-15.6); WHITE BLOOD COUNT 11.7 K/mm3 (4.0-10.0)
[2020-05-07 10:51] LABS: INR 1.01 (0.83-1.09); PROTHROMBIN TIME (PATIENT) 11.9 SEC (9.7-13.0)
[2020-05-07 10:54] LABS: ACTIVATED PTT 29.7 SECONDS (25.2-36.5)
[2020-05-07 11:16] LABS: ALBUMIN 3.9 g/dl (3.4-5.0); ALK PHOS 89 U/L (45-117); ANION GAP 12 MMOL/L (8-16); BILIRUBIN,TOTAL 0.5 mg/dL (0.2-1); CALCIUM 10.5 mg/dL (8.5-10.1); CHLORIDE 102 mmol/L (98-107); CO2 26 mmol/L (21-32); CREATININE 2.7 mg/dL (0.55-1.3); GLUCOSE,RANDOM 102 mg/dL (74-106); POTASSIUM 3.2 mmol/L (3.5-5.1); SGOT/AST 18 U/L (15-37); SGPT/ALT 26 U/L (13-61); SODIUM 139 mmol/L (136-145); TOT PROT 8.1 g/dl (6.4-8.2)
[2020-05-07] MEDS ORDERED: ENOXAPARIN NA (PORCINE) 100 MG/1 ML DISP.SYRIN SQ ONE ×2 (11:32→12:02)
--- NOTE | 2020-05-07 12:09 | PDOC ---
Documentation entered by Erik Ye SCRIBE, acting as scribe for Richa Fields MD. Richa Fields MD: This documentation has been prepared by the Quinton roberts inErik SCRIBE, under my direction and personally reviewed by me in its entirety. I confirm that the documentation accurately reflects all work, treatment, procedures, and medical decision making performed by me. Attending Attestation - Resident Resident Name: StellaAbena - ED Attending Attestation I have performed the following: I have examined & evaluated the patient, The case was reviewed & discussed with the resident, I agree w/resident's findings & plan, Exceptions are as noted - HPI HPI: 05/07/20 09:42 The patient is an 79 year old female with a significant past medical history of DM, HTN, asthma, morbid obesity, osteoarthritis, depression, and L nephrectomy who presents to the emergency department for evaluation of shortness of breath that began this morning. The patient endorses chest tightness since this morning and wheezing that has resolved. She reports she has not taken her medications for the past few weeks because she ran out and does not have a PCP. The patient denies abdominal/back pain, cough. Denies fever, chills, nausea, vomiting, and/or any GI symptoms. Denies any symptoms. Denies any other symptoms. Social Hx: The patient endorses occasionally consuming alcohol. Allergies: acetaminophen, penicillins, propoxyphene napsylate - Physicial Exam PE: 05/07/20 10:52 Agree with resident exam. Patient is alert and oriented, speaking in complete sentences, in no acute distress. Lungs are clear to auscultation bilaterally. CV: rrr no m/r/g Ext: no pitting edema. No calf tenderness 05/07/20 11:35 05/07/20 11:47 - Medical Decision Making 05/07/20 11:48 Pt presents to the ED complaining of chest tightness and shortness of breath. Differential includes asthma exacerbation, CHF, PE. EKG shows inverted T waves in lateral leads but no evidence of ischemia. Labs show acute renal failure. Will admit to medicine for rule out ACS and PE. Will start AC since unable to do CTA secondary to elevated Cr. Discharge - Discharge Information Problems reviewed: Yes Clinical Impression/Diagnosis: Shortness of breath Disposition: VNS/HOME HEALTH CARE - Follow up/Referral - Patient Discharge Instructions - Post Discharge Activity
[2020-05-07] MEDS ORDERED: ENOXAPARIN NA (PORCINE) 60 MG/0.6 ML DISP.SYRIN SQ SCH (13:00)
--- NOTE | 2020-05-07 13:20 | HP ---
CHIEF COMPLAINT: SOB PCP: HISTORY OF PRESENT ILLNESS: 79 y/o F, pmh of HTN, morbid obesity, osteoarthritis asthma without intubations in the past, left nephrectomy, presents to the ED c/o sob of a few minutes duration that self resolved. Pt states that she has had similar symptoms in the past when she was having an asthma attack for which she usually takes her nebulizer tx. However, since being the the group home, she has been unavailable to acquire her nebulizer treatments due to lack of it, which she attributes to the cause of her SOB. She admits to occasional whitish sputum with cough however no hemoptysis noted. She has not followed up with any lasting floorworker or urologist for several years. Upon admission, pts symptoms resolved but was found to have elevated creatinine. Denies f/c/n/v/d/sob,chest pain, back pain, abdominal pain, palpitations, numbness, tingling, headaches. ER course was notable for: (1) CXR wnl (2) D-dimer elevated (3) Wells score 1.5, unlikely PE Recent Travel: denies PAST MEDICAL HISTORY: asthma, rhabdo PAST SURGICAL HISTORY: left nephrectomy FHx: mother passed, etiology uncertain Social History: Smoking: denies Alcohol: denies Drugs: denies Allergies acetaminophen [From Darvocet-N 100] Allergy (Verified 05/07/20 08:30) Difficulty Breathing Penicillins Allergy (Verified 05/07/20 08:30) Rash propoxyphene napsylate [From Darvocet-N 100] Allergy (Verified 05/07/20 08:30) Difficulty Breathing HOME MEDICATIONS: Home Medications Medication Instructions Recorded Albuterol Sulfate Inhaler - 1 - 2 inh PO Q6H PRN #1 inhaler 08/30/19 [Ventolin HFA Inhaler -] Docusate Sodium [Colace -] 100 mg PO BID #60 capsule 08/30/19 Gabapentin [Neurontin -] 100 mg PO TID capsule 08/30/19 Sennosides [Senna] 8.6 mg PO DAILY #30 capsule 08/30/19 REVIEW OF SYSTEMS CONSTITUTIONAL: Absent: fever, chills, diaphoresis, generalized weakness, HEENT: Absent: rhinorrhea, nasal congestion CARDIOVASCULAR: Absent: chest pain, syncope, palpitations, peripheral edema RESPIRATORY: Absent: cough, shortness of breath, hemoptysis GASTROINTESTINAL: Absent: abdominal pain, abdominal distension, nausea, vomiting, diarrhea, constipation, melena, hematochezia GENITOURINARY: Absent: dysuria, frequency, urgency, genital pain NEUROLOGIC: Absent: headache, focal weakness or paresthesias, dizziness, unsteady gait, seizure PSYCHIATRIC: Absent: anxiety, depression, suicidal or homicidal ideation, hallucinations. PHYSICAL EXAMINATION Vital Signs - 24 hr 05/07/20 08:29 Temperature 97.8 F Pulse Rate 100 H Respiratory 20 Rate Blood Pressure 156/98 O2 Sat by Pulse 100 Oximetry (%) GENERAL: Awake, alert, and fully oriented, in no acute distress. EYES: Pupils equal, round and reactive to light, extraocular movements intact, sclera anicteric EARS, NOSE, THROAT: Dry mucous membranes. NECK: Normal range of motion, supple without lymphadenopathy, JVD, or masses. LUNGS: Breath sounds equal, clear to auscultation bilaterally. No wheezes, and no crackles. HEART: Regular rate and rhythm, normal S1 and S2 without murmur, rub or gallop. ABDOMEN: Soft, nontender, not distended, normoactive bowel sounds, no guarding, no rebound, no masses. MUSCULOSKELETAL: No CVA tenderness. UPPER EXTREMITIES: 2+ pulses, warm, No peripheral edema. LOWER EXTREMITIES: 2+ pulses, warm, well-perfused. No peripheral edema. B/l ankle edema, calf tenderness b/l NEUROLOGICAL: Normal speech. Normal gait. PSYCHIATRIC: Cooperative. Good eye contact. Appropriate mood and affect. SKIN: Warm, dry, normal turgor, no rashes or lesions noted, normal capillary refill. Laboratory Results - last 24 hr 05/07/20 05/07/20 05/07/20 10:25 10:25 10:25 WBC 11.7 H RBC 5.40 H Hgb 13.6 Hct 42.4 D MCV 78.4 L MCH 25.2 L MCHC 32.1 RDW 16.2 H Plt Count 355 MPV 7.2 L Absolute Neuts (auto) 9.7 H Neutrophils % 82.5 Lymphocytes % 11.1 D Monocytes % 6.0 Eosinophils % 0.1 Basophils % 0.3 Nucleated RBC % 0 PT with INR 11.90 INR 1.01 PTT (Actin FS) 29.7 D-Dimer Sodium 139 Potassium 3.2 L Chloride 102 Carbon Dioxide 26 Anion Gap 12 BUN 20.0 H Creatinine 2.7 H Est GFR (CKD-EPI)AfAm 18.54 Est GFR (CKD-EPI)NonAf 16.00 Random Glucose 102 Calcium 10.5 H Total Bilirubin 0.5 AST 18 ALT 26 Alkaline Phosphatase 89 Troponin I < 0.02 Total Protein 8.1 Albumin 3.9 05/07/20 10:25 WBC RBC Hgb Hct MCV MCH MCHC RDW Plt Count MPV Absolute Neuts (auto) Neutrophils % Lymphocytes % Monocytes % Eosinophils % Basophils % Nucleated RBC % PT with INR INR PTT (Actin FS) D-Dimer 1410 H Sodium Potassium Chloride Carbon Dioxide Anion Gap BUN Creatinine Est GFR (CKD-EPI)AfAm Est GFR (CKD-EPI)NonAf Random Glucose Calcium Total Bilirubin AST ALT Alkaline Phosphatase Troponin I Total Protein Albumin ASSESSMENT/PLAN: 79 y/o F, pmh of asthma without intubations in the past, left nephrectomy, presents to the ED c/o sob of a few minutes duration that self resolved likely 2/2 to asthma is now found to have YAEL #YAEL etiology unknown need to r/o prerenal vs rhabdo due to hx of rhabdo causing ARF leading to nephroectomy will need to r/o will order renal ultrasound calculate FeNa urine Na, Cre monitor Cre CK levels consult renal Hold IVF for now R/p UA- straight Cath #Elevated D-dimer etiology unknown but will investigate for causes due to YAEL will avoid CT w/ contrast VQ scan ordered Duplex of the LE ordered lovenox given in ED for concern for PE ASA also given for questionable CS?? unlikely trops negative, 2nd trop sent will wait for imaging to determine cause of elevated d-dimer Wells Score low (1.5) #Shortness of breath likely 2/2 to Asthma exacerbation lack of access to medication Will continue to monitor albuterol as needed will need pulmonary referral for outpt f/u #HTN cont home meds #OA stable #DVT ppx lovenox FEN monitor lytes sodium controlled diet hold IVF for now Dispo: f/u Duplex LE, VQ scan, f/u nephro recom, cont current mgmt ATTENDING PHYSICIAN STATEMENT I saw and evaluated the patient. I reviewed the resident's note and discussed the case with the resident. I agree with the resident's findings and plan as documented. SUBJECTIVE: OBJECTIVE: ASSESSMENT AND PLAN:
[2020-05-07] MEDS ORDERED: ALBUTEROL SO4 HFA INHALER IH PRN (13:39)
[2020-05-07] MEDS ORDERED: DOCUSATE SODIUM 100 MG CAPSULE (FP) PO ONE ×2 (14:14→22:30)
[2020-05-07] MEDS ORDERED: SENNOSIDES 8.6MG TABLET (FP) PO ONE (14:14)
[2020-05-07] MEDS ORDERED: GABAPENTIN 100 MG CAPSULE ONE ×2 (14:15→22:30)
[2020-05-07] MEDS ORDERED: ENOXAPARIN NA (PORCINE) 60 MG/0.6 ML DISP.SYRIN SQ ONE (14:15)
[2020-05-07] MEDS: SENNOSIDES 8.6MG TABLET (FP) PO SCH ×2 (14:29→15:47)
[2020-05-07] MEDS: DOCUSATE SODIUM 100 MG CAPSULE (FP) PO SCH ×3 (14:29→22:40)
[2020-05-07] MEDS: GABAPENTIN 100 MG CAPSULE PO SCH ×2 (14:29→22:40)
--- NOTE | 2020-05-07 14:41 | PN ---
Teaching Attending Note Name of Resident: Bill Pearce ATTENDING PHYSICIAN STATEMENT I saw and evaluated the patient. I reviewed the resident's note and discussed the case with the resident. I agree with the resident's findings and plan as documented. SUBJECTIVE: 79yo F with h/o L nephrectomy (performed for unknown cause), HTN, morbid obesity, OA, mild intermittent asthma who originally presented to the ED from custodial due to acute shortness of breath and wheezing. Patient describes her symptoms as her typical asthma symptoms, however she did not have any nebulized albuterol solution to help this time due to running out of her medications. Patient states that she began to have gripping sternal chest pain without any other associated symptoms or radiation. She was sent to the ED for further evaluation. During her stay patient was given an albuterol inhalation and she had her symptoms resolve. During her workup it was noted she had an elevated D-dimer, leukocystosis, and YAEL. Patient denies any fever/chills, n/v/d/c, lightheadedness/dizziness, current SOB, CP/discomfort, palpitations, abdominal pain, dysuria, polyuria, hematuria, diarrhea. She endorses constipation however this has been a chronic problem. Of note, pt has been hospitalized for rhabdomyolysis and failure to thrive before with resulting YAEL. Patient at those times was hydrated with IVF and was sent to SNF for rehab. Recent Travel: denies, mostly immobile at SNF PmHx: As above PsHx: L nephrectromy SoHx: No tobacco, alcohol, or drugs Fam Hx: Mother at elderly age OBJECTIVE: Vital Signs Temperature 97.8 F 05/07/20 08:29 Pulse Rate 100 H 05/07/20 08:29 Respiratory Rate 20 05/07/20 08:29 Blood Pressure 156/98 05/07/20 08:29 O2 Sat by Pulse Oximetry (%) 100 05/07/20 08:29 PE: GEN: NAD, awake, alert, laying in bed watching tv HEENT: Nc/AT, MERARY, dry mucosa Neck: No JVD LUNG: CTA b/l without wheezes or rales CARD: RRR no murmurs appreciated ABD: Soft, NT/ND, normoactive BS, EXT: 2+ pulses b/l in lower extremities, nonpitting edema to the knee. Minimal calf tenderness L leg Skin: Dry lower extremity skin with poor nail care. CBC, BMP 05/07/20 10:25 05/07/20 10:25 ASSESSMENT AND PLAN: Acute kidney injury with unclear etiology Elevated D-dimer Leukocytosis Hypokalemia --Pt's original presenting symptoms resolved at time of exam --SOB differential wide especially with quick resolution --Doubt ACS due to unchanged nonspecific ECG and lack of typical symptoms --Trend troponins for 2-3 negative values for r/o --YAEL will need further workup --CPK level (prior rhabdomyolysis) --Renal U/S --Urine studies/electrolytes for calculation of FeNa --Monitor urine output; may have to straight cath vs. knott if unable to produce urine --In setting of elevated D-dimer despite age-adjustment (high normal limit 800 in 79yo) --Duplex b/l lower extremities due to physical findings --If all other workup is negative will have to pursue with further imaging --Would hold of on A/c for now given patient has low possibility without any symptoms related --Add-on Mg and replete electrolytes as needed Dispo: M/S Abdirashid Gibbs DO - IM
--- NOTE | 2020-05-07 15:28 | EKG ---
Test Reason : Blood Pressure : / mmHG Vent. Rate : 100 BPM Atrial Rate : 100 BPM P-R Int : 148 ms QRS Dur : 074 ms QT Int : 342 ms P-R-T Axes : 082 050 043 degrees QTc Int : 441 ms POOR DATA QUALITY, INTERPRETATION MAY BE ADVERSELY AFFECTED NORMAL SINUS RHYTHM CANNOT RULE OUT ANTERIOR INFARCT , AGE UNDETERMINED ABNORMAL ECG WHEN COMPARED WITH ECG OF 15-AUG-2019 14:41, MINIMAL CRITERIA FOR ANTERIOR INFARCT ARE NOW PRESENT NONSPECIFIC T WAVE ABNORMALITY, IMPROVED IN INFERIOR LEADS T WAVE INVERSION NOW EVIDENT IN ANTERIOR LEADS NONSPECIFIC T WAVE ABNORMALITY NO LONGER EVIDENT IN LATERAL LEADS Confirmed by DIVINA NAVARRO MD ([id number]) on 05/07/2020 3:28:12 PM Referred By: Confirmed By:DIVINA NAVARRO MD
[2020-05-07] MEDS ORDERED: SODIUM CHLORIDE 1,000 ML IV SCH (19:00)
[2020-05-07 20:16] LABS: EPI CELLS 21 /uL (0-25.1); HYALINE CASTS 9 /uL (0-3.1); URINE APPEARANCE CLOUDY; URINE BILIRUBIN 1+ (NEGATIVE); URINE COLOR DK YELLOW; URINE GLUCOSE (UA) NEGATIVE (NEGATIVE); URINE KETONE TRACE (NEGATIVE); URINE LEUK ESTERASE NEGATIVE (NEGATIVE); URINE NITRITE POSITIVE (NEGATIVE); URINE PROTEIN 1+ (NEGATIVE); URINE RBC 10 /uL (0-23.9); URINE WBC 6 /uL (0-25.8)
[2020-05-07 20:58] LABS: CREATININE, URINE RANDOM > 400.0 mg/dL (30-150)
[2020-05-07 21:13] LABS: URINE BACTERIA 3.8 /uL (0-1359); URINE CRYSTALS NO SEEN /hpf
[2020-05-08 01:45] VITALS: BMI 40.4
[2020-05-08] MEDS: GABAPENTIN 100 MG CAPSULE PO SCH ×3 (06:13→22:18)
[2020-05-08] MEDS: DOCUSATE SODIUM 100 MG CAPSULE (FP) PO SCH ×2 (09:18→22:15)
[2020-05-08] MEDS: SENNOSIDES 8.6MG TABLET (FP) PO SCH (09:18)
[2020-05-08 09:50] LABS: BASO % 0.4 % (0-2.0); EOS % 2.2 % (0-4.5); HEMATOCRIT 36.1 % (32.4-45.2); HEMOGLOBIN 11.4 GM/dL (10.7-15.3); LYMPH % 26.5 % (8-40); MCH 25.1 pg (25.7-33.7); MCHC 31.6 g/dl (32.0-36.0); MEAN CELL VOLUME 79.3 fl (80-96); MEAN PLT VOLUME 7.3 fl (7.5-11.1); MONO % 8.8 % (3.8-10.2); NEUT % 62.1 % (42.8-82.8); PLATELET COUNT 272 K/MM3 (134-434); RBC 4.55 M/mm3 (3.60-5.2); RDW 16.7 % (11.6-15.6); WHITE BLOOD COUNT 6.2 K/mm3 (4.0-10.0)
[2020-05-08 10:27] LABS: ALBUMIN 2.6 g/dl (3.4-5.0); BILIRUBIN,TOTAL 0.5 mg/dL (0.2-1); CALCIUM 8.7 mg/dL (8.5-10.1); CREATININE 1.5 mg/dL (0.55-1.3); MAGNESIUM 1.9 mg/dL (1.8-2.4); PHOSPHOROUS 3.1 mg/dL (2.5-4.9); POTASSIUM 3.3 mmol/L (3.5-5.1)
[2020-05-08 10:34] LABS: BLOOD UREA NITROGEN 21.7 mg/dL (7-18); TOT PROT 5.9 g/dl (6.4-8.2)
[2020-05-08] MEDS ORDERED: POTASSIUM CHLORIDE TABS 20 MEQ TABLET.ER (FP) PO ONE (11:24)
[2020-05-08] MEDS ORDERED: ONDANSETRON 4 MG/2 ML VIAL IVPUSH PRN (11:49)
[2020-05-08] MEDS: KCL 10 MEQ IVPB 10 MEQ/100 ML INFUS.BAG IVPB SCH ×3 (12:17→16:30)
--- NOTE | 2020-05-08 13:39 | PN ---
Teaching Attending Note Name of Resident: Rigoberto Crawford ATTENDING PHYSICIAN STATEMENT I saw and evaluated the patient. I reviewed the resident's note and discussed the case with the resident. I agree with the resident's findings and plan as documented. SUBJECTIVE: pt seen and examined OBJECTIVE: Last Vital Signs Temp Pulse Resp BP Pulse Ox 97.6 F 72 18 118/57 L 97 05/08/20 01:04 05/08/20 01:04 05/08/20 01:04 05/08/20 01:04 05/08/20 01:04 GENERAL: Awake, alert, and fully oriented, in no acute distress. LUNGS: Breath sounds equal, clear to auscultation bilaterally. No wheezes, and no crackles. No accessory muscle use. HEART: Regular rate and rhythm, normal S1 and S2 ABDOMEN: Soft, nontender, not distended MUSCULOSKELETAL: Normal range of motion at all joints. No bony deformities or tenderness. No CVA tenderness. UPPER EXTREMITIES: 2+ pulses, warm, well-perfused. No cyanosis. No clubbing. No peripheral edema. LOWER EXTREMITIES: 2+ pulses, warm, well-perfused. No calf tenderness. No peripheral edema. NEUROLOGICAL: Cranial nerves II-XII intact. Normal speech. CBCD WBC 6.2 K/mm3 (4.0-10.0) 05/08/20 09:13 RBC 4.55 M/mm3 (3.60-5.2) 05/08/20 09:13 Hgb 11.4 GM/dL (10.7-15.3) 05/08/20 09:13 Hct 36.1 % (32.4-45.2) 05/08/20 09:13 MCV 79.3 fl (80-96) L 05/08/20 09:13 MCHC 31.6 g/dl (32.0-36.0) L 05/08/20 09:13 RDW 16.7 % (11.6-15.6) H 05/08/20 09:13 Plt Count 272 K/MM3 (134-434) D 05/08/20 09:13 MPV 7.3 fl (7.5-11.1) L 05/08/20 09:13 CMP Sodium 141 mmol/L (136-145) 05/08/20 09:13 Potassium 3.3 mmol/L (3.5-5.1) L 05/08/20 09:13 Chloride 108 mmol/L (98-107) H 05/08/20 09:13 Carbon Dioxide 24 mmol/L (21-32) 05/08/20 09:13 Anion Gap 9 MMOL/L (8-16) 05/08/20 09:13 BUN 21.7 mg/dL (7-18) H 05/08/20 09:13 Creatinine 1.5 mg/dL (0.55-1.3) H 05/08/20 09:13 Calcium 8.7 mg/dL (8.5-10.1) 05/08/20 09:13 Total Bilirubin 0.5 mg/dL (0.2-1) 05/08/20 09:13 AST 17 U/L (15-37) 05/08/20 09:13 ALT 19 U/L (13-61) 05/08/20 09:13 Alkaline Phosphatase 67 U/L (45-117) 05/08/20 09:13 Total Protein 5.9 g/dl (6.4-8.2) L 05/08/20 09:13 Albumin 2.6 g/dl (3.4-5.0) L 05/08/20 09:13 Active Medications Albuterol Sulfate (Ventolin Hfa Inhaler -) 2 puff IH Q6H PRN PRN Reason: SHORT OF BREATH/WHEEZING Docusate Sodium (Colace -) 100 mg PO BID [facility] Last Admin: 05/08/20 09:18 Dose: Not Given Documented by: Gabapentin (Neurontin -) 100 mg PO TID [facility] Last Admin: 05/08/20 06:13 Dose: Not Given Documented by: Potassium Chloride (Potassium Chloride 10 Meq Premix Ivpb -) 10 meq in 100 mls @ 100 mls/hr IVPB Q60M [facility] Stop: 05/08/20 14:29 Last Admin: 05/08/20 12:17 Dose: 100 mls/hr Documented by: Ondansetron HCl (Zofran Injection) 4 mg IVPUSH Q6H PRN PRN Reason: NAUSEA AND/OR VOMITING Last Admin: 05/08/20 12:17 Dose: 4 mg Documented by: Senna (Senna -) 8.6 tab PO DAILY [facility] Last Admin: 05/08/20 09:18 Dose: Not Given Documented by: ASSESSMENT AND PLAN: 79yo F with h/o L nephrectomy (performed for unknown cause), HTN, morbid obesity, OA, mild intermittent asthma who originally presented to the ED from assisted due to acute shortness of breath and wheezing due to unavailability of inhaler. Her dyspnea resolved and was admitted for YAEL #YAEL likely due to dehydration FeNa 0.1% creatinine improving with IVF will discharge back to SNF in AM if creatinine improves Asthma HTN Morbid obesity OA DVT prophylaxis
--- NOTE | 2020-05-08 13:51 | CONSULT ---
Consult Consult Specialty:: Nephrology Reason for Consultation:: YAEL - History of Present Illness Chief Complaint: shortness of breath History of Present Illness: Pt is an 79 year old female with pmhx of htn, obesity, asthma, obesity, and arthritis who presents to the ER with an episode of shortness of breath. She was found to have elevated creatinine and I was called to evaluate her. She currently denies shortness of breath. She denies dysuria or hematuria. She does get a cough at times. She denies nsaid use. She has poor outpt follow up. She denies abd pain. - History Source History Provided By: Patient - Past Medical History Cardio/Vascular: Yes: HTN, Murmur Pulmonary: Yes: Asthma Renal/: Yes: Renal Inusuff Musculoskeletal: Yes: Osteoarthritis - Past Surgical History Past Surgical History: Yes: Nephrectomy (left) - Alcohol/Substance Use Hx Alcohol Use: No History of Substance Use: reports: None - Smoking History Smoking history: Never smoked Have you smoked in the past 12 months: No - Social History Usual Living Arrangement: Alone () History of Recent Travel: No Home Medications - Allergies Allergies/Adverse Reactions: Allergies Allergy/AdvReac Type Severity Reaction Status Date / Time acetaminophen Allergy Difficulty Verified 05/07/20 08:30 [From Darvocet-N 100] Breathing egg Allergy Verified 05/08/20 09:14 egg yolk Allergy Verified 05/08/20 09:14 Penicillins Allergy Rash Verified 05/07/20 08:30 propoxyphene napsylate Allergy Difficulty Verified 05/07/20 08:30 [From Darvocet-N 100] Breathing - Home Medications Home Medications: Ambulatory Orders Albuterol Sulfate Inhaler - [Ventolin HFA Inhaler -] 1 - 2 inh PO Q6H PRN #1 inhaler 08/30/19 Docusate Sodium [Colace -] 100 mg PO BID #60 capsule 08/30/19 Gabapentin [Neurontin -] 100 mg PO TID capsule 08/30/19 Sennosides [Senna] 8.6 mg PO DAILY #30 capsule 08/30/19 Family Medical History Family History: Denies Review of Systems - Review of Systems Constitutional: reports: No Symptoms Eyes: reports: No Symptoms HENT: reports: No Symptoms Neck: reports: No Symptoms Cardiovascular: reports: No Symptoms Respiratory: reports: SOB Gastrointestinal: reports: No Symptoms Genitourinary: reports: No Symptoms Musculoskeletal: reports: No Symptoms Integumentary: reports: No Symptoms Neurological: reports: No Symptoms Endocrine: reports: No Symptoms Hematology/Lymphatic: reports: No Symptoms Psychiatric: reports: No Symptoms Physical Exam Vital Signs: Vital Signs Temperature 97.6 F 05/08/20 01:04 Pulse Rate 72 05/08/20 01:04 Respiratory Rate 18 05/08/20 01:04 Blood Pressure 118/57 L 05/08/20 01:04 O2 Sat by Pulse Oximetry (%) 97 05/08/20 01:04 Constitutional: Yes: Calm Eyes: Yes: Conjunctiva Clear HENT: Yes: Atraumatic Neck: Yes: Supple Cardiovascular: Yes: S1, S2 Respiratory: Yes: CTA Bilaterally Gastrointestinal: Yes: Soft Renal/: Yes: WNL Musculoskeletal: Yes: WNL Edema: No Neurological: Yes: Oriented Psychiatric: Yes: Oriented Labs: CBC, BMP 05/08/20 09:13 05/08/20 09:13 Imaging - Results Chest X-ray: Report Reviewed Ultrasound: Report Reviewed Problem List - Problems (1) YAEL (acute kidney injury) Code(s): N17.9 - ACUTE KIDNEY FAILURE, UNSPECIFIED Assessment/Plan Current Medications Generic Name Dose Route Start Last Admin Trade Name Freq PRN Reason Stop Dose Admin Albuterol Sulfate 2 puff 05/07/20 13:39 Ventolin Hfa Inhaler - IH Q6H PRN SHORT OF BREATH/WHEEZING Docusate Sodium 100 mg 05/07/20 13:45 05/08/20 09:18 Colace - PO Not Given BID GISELA Gabapentin 100 mg 05/07/20 14:00 05/08/20 06:13 Neurontin - PO Not Given TID GISELA Potassium Chloride 10 meq in 100 mls @ 100 mls/hr 05/08/20 11:30 05/08/20 12:17 Potassium Chloride 10 Meq Premix Ivpb - IVPB 05/08/20 14:29 100 mls/hr Q60M GISELA Administration Ondansetron HCl 4 mg 05/08/20 11:49 05/08/20 12:17 Zofran Injection IVPUSH 4 mg Q6H PRN Administration NAUSEA AND/OR VOMITING Senna 8.6 tab 05/07/20 13:45 05/08/20 09:18 Senna - PO Not Given DAILY GISELA Laboratory Tests 08/21/19 08/28/19 05/07/20 06:35 07:15 10:25 Potassium Creatinine 0.9 2.7 H Phosphorus 2.4 L Magnesium 1.7 L Ur Random Sodium 05/07/20 05/08/20 18:10 09:13 Potassium 3.3 L Creatinine 1.5 H Phosphorus Magnesium Ur Random Sodium < 18 L Impression 1. YAEL 2. hypokalemia 3. obesity 4. htn 5. asthma Plan - replace potassium - change fluids to 1/2 ns with potassium - yael likely pre-renal - repeat labs in am - pt has 2 kidneys on ultrasound, no evidence of nephrectomy
[2020-05-08] MEDS ORDERED: SODIUM CHLORIDE 0.45%/POT 20 MEQ/1,000 ML INFUS.BAG IV SCH (14:15)
--- NOTE | 2020-05-08 15:03 | PN ---
Physical Exam: SUBJECTIVE: Patient seen and examined. Denies SOB, CP, fever/chills, N/V, SOB OBJECTIVE: Vital Signs Period Temp Pulse Resp BP Sys/Parr Pulse Ox Last 24 Hr 97.6 F 72-90 18-20 118-158/51-90 97-100 CONSTITUTIONAL: Absent: fever, chills, diaphoresis, generalized weakness, HEENT: Absent: rhinorrhea, nasal congestion CARDIOVASCULAR: Absent: chest pain, syncope, palpitations, peripheral edema RESPIRATORY: Absent: cough, shortness of breath, hemoptysis GASTROINTESTINAL: Absent: abdominal pain, abdominal distension, nausea, vomiting, diarrhea, constipation, melena, hematochezia GENITOURINARY: Absent: dysuria, frequency, urgency, genital pain NEUROLOGIC: Absent: headache, focal weakness or paresthesias, dizziness, unsteady gait, seizure PSYCHIATRIC: Absent: anxiety, depression, suicidal or homicidal ideation, hallucinations. Laboratory Results - last 24 hr 05/07/20 05/07/20 05/07/20 10:25 15:40 16:10 WBC RBC Hgb Hct MCV MCH MCHC RDW Plt Count MPV Absolute Neuts (auto) Neutrophils % Lymphocytes % Monocytes % Eosinophils % Basophils % Nucleated RBC % Sodium 139 Potassium 3.2 L Chloride 102 Carbon Dioxide 26 Anion Gap 12 BUN 20.0 H Creatinine 2.7 H Est GFR (CKD-EPI)AfAm 18.54 Est GFR (CKD-EPI)NonAf 16.00 Random Glucose 102 Calcium 10.5 H Phosphorus Magnesium 2.0 Total Bilirubin 0.5 AST 18 ALT 26 Alkaline Phosphatase 89 Creatine Kinase 358 H 442 H Creatine Kinase Index 0.9 0.4 CK-MB (CK-2) 3.4 2.2 Troponin I < 0.02 < 0.02 Total Protein 8.1 Albumin 3.9 TSH Urine Color Urine Appearance Urine pH Ur Specific [place] Urine Protein Urine Glucose (UA) Urine Ketones Urine Blood Urine Nitrite Urine Bilirubin Urine Urobilinogen Ur Leukocyte Esterase Urine WBC (Auto) Urine RBC (Auto) Urine Casts (Auto) U Pathogenic Cast Auto U Epithel Cells (Auto) Urine Crystals (Auto) Urine Bacteria (Auto) Ur Random Creatinine Ur Random Sodium COVID-19 (JULIEN) Not detected 05/07/20 05/07/20 05/08/20 18:10 18:10 09:13 WBC 6.2 RBC 4.55 Hgb 11.4 Hct 36.1 MCV 79.3 L MCH 25.1 L MCHC 31.6 L RDW 16.7 H Plt Count 272 D MPV 7.3 L Absolute Neuts (auto) 3.9 Neutrophils % 62.1 D Lymphocytes % 26.5 D Monocytes % 8.8 Eosinophils % 2.2 D Basophils % 0.4 Nucleated RBC % 0 Sodium Potassium Chloride Carbon Dioxide Anion Gap BUN Creatinine Est GFR (CKD-EPI)AfAm Est GFR (CKD-EPI)NonAf Random Glucose Calcium Phosphorus Magnesium Total Bilirubin AST ALT Alkaline Phosphatase Creatine Kinase Creatine Kinase Index CK-MB (CK-2) Troponin I Total Protein Albumin TSH Urine Color Dk yellow Urine Appearance Cloudy Urine pH 5.0 Ur Specific [place] 1.025 Urine Protein 1+ H Urine Glucose (UA) Negative Urine Ketones Trace H Urine Blood Negative Urine Nitrite Positive H D Urine Bilirubin 1+ H Urine Urobilinogen 1.0 Ur Leukocyte Esterase Negative Urine WBC (Auto) 6 Urine RBC (Auto) 10 Urine Casts (Auto) 9 U Pathogenic Cast Auto No seen U Epithel Cells (Auto) 21 Urine Crystals (Auto) No seen Urine Bacteria (Auto) 3.8 Ur Random Creatinine > 400.0 H Ur Random Sodium < 18 L COVID-19 (JULIEN) 05/08/20 09:13 WBC RBC Hgb Hct MCV MCH MCHC RDW Plt Count MPV Absolute Neuts (auto) Neutrophils % Lymphocytes % Monocytes % Eosinophils % Basophils % Nucleated RBC % Sodium 141 Potassium 3.3 L Chloride 108 H Carbon Dioxide 24 Anion Gap 9 BUN 21.7 H Creatinine 1.5 H Est GFR (CKD-EPI)AfAm 37.74 Est GFR (CKD-EPI)NonAf 32.56 Random Glucose 90 Calcium 8.7 Phosphorus 3.1 Magnesium 1.9 Total Bilirubin 0.5 AST 17 ALT 19 Alkaline Phosphatase 67 Creatine Kinase Creatine Kinase Index CK-MB (CK-2) Troponin I Total Protein 5.9 L Albumin 2.6 L TSH 1.65 Urine Color Urine Appearance Urine pH Ur Specific [place] Urine Protein Urine Glucose (UA) Urine Ketones Urine Blood Urine Nitrite Urine Bilirubin Urine Urobilinogen Ur Leukocyte Esterase Urine WBC (Auto) Urine RBC (Auto) Urine Casts (Auto) U Pathogenic Cast Auto U Epithel Cells (Auto) Urine Crystals (Auto) Urine Bacteria (Auto) Ur Random Creatinine Ur Random Sodium COVID-19 (JULIEN) Active Medications Generic Name Dose Route Start Last Admin Trade Name Freq PRN Reason Stop Dose Admin Albuterol Sulfate 2 puff 05/07/20 13:39 Ventolin Hfa Inhaler - IH Q6H PRN SHORT OF BREATH/WHEEZING Docusate Sodium 100 mg 05/07/20 13:45 05/08/20 09:18 Colace - PO Not Given BID GISELA Gabapentin 100 mg 05/07/20 14:00 05/08/20 14:21 Neurontin - PO Not Given TID GISELA Potassium Chloride/Sodium Chloride 20 meq in 1,000 mls @ 42 mls/hr 05/08/20 14:15 1/2ns+20meq Kcl IV ASDIR GISELA Ondansetron HCl 4 mg 05/08/20 11:49 05/08/20 12:17 Zofran Injection IVPUSH 4 mg Q6H PRN Administration NAUSEA AND/OR VOMITING Senna 8.6 tab 05/07/20 13:45 05/08/20 09:18 Senna - PO Not Given DAILY GISELA ASSESSMENT/PLAN: Pt is a 79 yo female with PMHx of asthma, left nephrectomy ??, presents to the ED with SOB of few minutes duration that is self resolved, likely 2/2 to asthma, admitted for found YAEL. #YAEL -Baseline Cr 0.9, presenting with Cr 2.7 -Improved to 1.5; f/u AM labs, DC in AM if improved -Likely due to dehydration; FeNa 0.1% #Elevated D Dimer -Duplex LE negative -Low wells score and low suspicion for PE -Not tachy or hypoxic #Hx of asthma -Albuterol PRN -Pulm referral outpatient #Morbid obesity -counselled on diet and exercise #Osteoarthritis -no acute complaints FEN: NS @ 75cc/hr Monitor electrolytes Sodium controlled diet PPx: Heparin Dispo: Admitted to med surg. Being treated with IVF for YAEL. DC in AM if Cr normalizes. Visit type - Emergency Visit Emergency Visit: Yes ED Registration Date: 05/08/20 Care time: The patient presented to the Emergency Department on the above date and was hospitalized for further evaluation of their emergent condition. - New Patient This patient is new to me today: No - Critical Care Critical Care patient: No - Medication Review Med list reviewed for High Risk Meds patients 65 and older: Yes ATTENDING PHYSICIAN STATEMENT I saw and evaluated the patient. I reviewed the resident's note and discussed the case with the resident. I agree with the resident's findings and plan as documented. SUBJECTIVE: OBJECTIVE: ASSESSMENT AND PLAN:
[2020-05-08] MEDS: HEPARIN NA (PORCINE) 5,000 UNITS/ML 1ML VIAL SQ SCH (22:15)
[2020-05-08 22:19] LABS: CALCIUM 8.5 mg/dL (8.5-10.1); CREATININE 1.3 mg/dL (0.55-1.3); POTASSIUM 3.8 mmol/L (3.5-5.1)
[2020-05-09] MEDS: HEPARIN NA (PORCINE) 5,000 UNITS/ML 1ML VIAL SQ SCH ×2 (06:12→15:09)
[2020-05-09] MEDS: GABAPENTIN 100 MG CAPSULE PO SCH ×2 (06:13→15:09)
[2020-05-09 08:43] LABS: BASO % 0.3 % (0-2.0); EOS % 1.2 % (0-4.5); HEMATOCRIT 30.2 % (32.4-45.2); LYMPH % 14.8 % (8-40); MCH 25.9 pg (25.7-33.7); MCHC 33.1 g/dl (32.0-36.0); MEAN CELL VOLUME 78.2 fl (80-96); MEAN PLT VOLUME 7.5 fl (7.5-11.1); MONO % 7.6 % (3.8-10.2); NEUT % 76.1 % (42.8-82.8); PLATELET COUNT 257 K/MM3 (134-434); RBC 3.87 M/mm3 (3.60-5.2); RDW 16.1 % (11.6-15.6); WHITE BLOOD COUNT 9.1 K/mm3 (4.0-10.0)
[2020-05-09 09:11] LABS: ALBUMIN 2.3 g/dl (3.4-5.0); BILIRUBIN,TOTAL 0.6 mg/dL (0.2-1); BLOOD UREA NITROGEN 15.5 mg/dL (7-18); CALCIUM 8.1 mg/dL (8.5-10.1); CREATININE 1.1 mg/dL (0.55-1.3); MAGNESIUM 1.6 mg/dL (1.8-2.4); PHOSPHOROUS 2.5 mg/dL (2.5-4.9)
[2020-05-09 09:16] LABS: TOT PROT 5.4 g/dl (6.4-8.2)
[2020-05-09] MEDS: SENNOSIDES 8.6MG TABLET (FP) PO SCH (10:24)
[2020-05-09] MEDS: DOCUSATE SODIUM 100 MG CAPSULE (FP) PO SCH (10:24)
--- NOTE | 2020-05-09 13:07 | DS ---
Physical Exam: SUBJECTIVE: Patient seen and examined OBJECTIVE: Vital Signs Period Temp Pulse Resp BP Sys/Parr Pulse Ox Last 24 Hr 97.8 F-98.8 F 81-87 18-20 104-132/42-63 96-98 PHYSICAL EXAM GENERAL: The patient is awake, alert, and fully oriented, in no acute distress. HEAD: Normal with no signs of trauma. EYES: PERRL, extraocular movements intact, sclera anicteric, conjunctiva clear. ENT: Ears normal, nares patent, oropharynx clear without exudates, moist mucous membranes. NECK: Trachea midline, full range of motion, supple. LUNGS: Breath sounds equal, clear to auscultation bilaterally, no wheezes, no crackles, no accessory muscle use. HEART: Regular rate and rhythm, S1, S2 without murmur, rub or gallop. ABDOMEN: Soft, nontender, nondistended, normoactive bowel sounds, no guarding, no rebound, no hepatosplenomegaly, no masses. EXTREMITIES: 2+ pulses, warm, well-perfused, no edema. NEUROLOGICAL: Cranial nerves II through XII grossly intact. Normal speech, gait not observed. PSYCH: Normal mood, normal affect. SKIN: Warm, dry, normal turgor, no rashes or lesions noted. LABS Laboratory Results - last 24 hr 05/07/20 05/08/20 05/08/20 15:40 21:35 22:41 WBC RBC Hgb Hct MCV MCH MCHC RDW Plt Count MPV Absolute Neuts (auto) Neutrophils % Lymphocytes % Monocytes % Eosinophils % Basophils % Nucleated RBC % Sodium 139 Potassium 3.8 Chloride 107 Carbon Dioxide 22 Anion Gap 10 BUN 20.0 H Creatinine 1.3 Est GFR (CKD-EPI)AfAm 44.87 Est GFR (CKD-EPI)NonAf 38.71 POC Glucometer 91 Random Glucose 108 H Calcium 8.5 Phosphorus Magnesium Total Bilirubin AST ALT Alkaline Phosphatase Creatine Kinase Total Protein Albumin COVID-19 (JULIEN) Not detected 05/09/20 05/09/20 05/09/20 06:21 07:05 07:05 WBC 9.1 RBC 3.87 Hgb 10.0 L Hct 30.2 L D MCV 78.2 L MCH 25.9 MCHC 33.1 RDW 16.1 H Plt Count 257 MPV 7.5 Absolute Neuts (auto) 6.9 Neutrophils % 76.1 D Lymphocytes % 14.8 D Monocytes % 7.6 Eosinophils % 1.2 Basophils % 0.3 Nucleated RBC % 0 Sodium 143 Potassium 4.0 Chloride 111 H Carbon Dioxide 22 Anion Gap 10 BUN 15.5 Creatinine 1.1 Est GFR (CKD-EPI)AfAm 54.91 Est GFR (CKD-EPI)NonAf 47.38 POC Glucometer 96 Random Glucose 89 Calcium 8.1 L Phosphorus 2.5 Magnesium 1.6 L Total Bilirubin 0.6 AST 21 ALT 20 Alkaline Phosphatase 64 Creatine Kinase 104 Total Protein 5.4 L Albumin 2.3 L COVID-19 (JULIEN) Active Medications Albuterol Sulfate (Ventolin Hfa Inhaler -) 2 puff IH Q6H PRN PRN Reason: SHORT OF BREATH/WHEEZING Docusate Sodium (Colace -) 100 mg PO BID [facility] Last Admin: 05/09/20 10:24 Dose: Not Given Documented by: Gabapentin (Neurontin -) 100 mg PO TID [facility] Last Admin: 05/09/20 06:13 Dose: 100 mg Documented by: Heparin Sodium (Porcine) (Heparin -) 5,000 unit SQ TID [facility] Last Admin: 05/09/20 06:12 Dose: 5,000 unit Documented by: Potassium Chloride/Sodium Chloride (1/2ns+20meq Kcl) 20 meq in 1,000 mls @ 42 mls/hr IV ASDIR [facility] Last Admin: 05/08/20 18:07 Dose: 42 mls/hr Documented by: Ondansetron HCl (Zofran Injection) 4 mg IVPUSH Q6H PRN PRN Reason: NAUSEA AND/OR VOMITING Last Admin: 05/08/20 12:17 Dose: 4 mg Documented by: Senna (Senna -) 8.6 tab PO DAILY [facility] Last Admin: 05/09/20 10:24 Dose: Not Given Documented by: HOSPITAL COURSE: 79yo F with h/o HTN, morbid obesity, OA, mild intermittent asthma who originally presented to the ED from [facility] due to acute shortness of breath and wheezing stating that she ran out of asthma medication. Pt symptoms resolved in ED after using inhaler. She was found to have YAEL and was placed on IV fluids, creatinine improved and returned to baseline, nephrology consulted. US was performed and showed normal kidneys. Pt was discharged back to [facility] Date of Admission:05/08/20 Date of Discharge: 05/09/20 Minutes to complete discharge: 35 Discharge Summary Problems reviewed: Yes Reason For Visit: YAEL Condition: Improved - Instructions Diet, Activity, Other Instructions: You were admitted because had acute kidney injury, the cause of your condition was likely due to decrease fluid intake, you were placed on IV fluids and your kidney function improved please continue taking the rest of your home medications as instructed Please, schedule a follow up with your primary care provider If you feel worsening of your symptoms please call 911 or come to emergency department Referrals: Андрей Connell MD [Staff Physician] - Darrel Corona MD [Staff Physician] - [facility] - Home Medications Comprehensive Discharge Medication List: Ambulatory Orders Docusate Sodium [Colace -] 100 mg PO BID #60 capsule 08/30/19 Gabapentin [Neurontin -] 100 mg PO TID capsule 08/30/19 Sennosides [Senna] 8.6 mg PO DAILY #30 capsule 08/30/19 Albuterol Sulfate Inhaler - [Ventolin HFA Inhaler -] 1 - 2 inh PO Q6H PRN #1 inhaler 05/09/20 This patient is new to me today: No Emergency Visit: Yes ED Registration Date: 05/08/20 Care time: The patient presented to the Emergency Department on the above date and was hospitalized for further evaluation of their emergent condition. Critical Care patient: No - Discharge Referral Referred to [facility] Med P.C.: No
[2020-05-09 14:59] VITALS: BP 105/45; PULSE 82; TEMP 98.2
--- NOTE | 2020-05-09 16:25 | PN ---
Progress Note, Physician History of Present Illness: Seen and examined at the bedside awake and alert complains of diarrhea and abdominal discomfort no N/V no sob, cp, fevers + chills making urine - Current Medication List Current Medications: Active Medications Albuterol Sulfate (Ventolin Hfa Inhaler -) 2 puff IH Q6H PRN PRN Reason: SHORT OF BREATH/WHEEZING Docusate Sodium (Colace -) 100 mg PO BID [facility] Last Admin: 05/09/20 10:24 Dose: Not Given Documented by: Gabapentin (Neurontin -) 100 mg PO TID [facility] Last Admin: 05/09/20 15:09 Dose: Not Given Documented by: Heparin Sodium (Porcine) (Heparin -) 5,000 unit SQ TID [facility] Last Admin: 05/09/20 15:09 Dose: 5,000 unit Documented by: Potassium Chloride/Sodium Chloride (1/2ns+20meq Kcl) 20 meq in 1,000 mls @ 42 mls/hr IV ASDIR [facility] Last Admin: 05/08/20 18:07 Dose: 42 mls/hr Documented by: Ondansetron HCl (Zofran Injection) 4 mg IVPUSH Q6H PRN PRN Reason: NAUSEA AND/OR VOMITING Last Admin: 05/08/20 12:17 Dose: 4 mg Documented by: Senna (Senna -) 8.6 tab PO DAILY [facility] Last Admin: 05/09/20 10:24 Dose: Not Given Documented by: - Objective Vital Signs: Vital Signs Temperature 98.2 F 05/09/20 14:57 Pulse Rate 82 05/09/20 14:57 Respiratory Rate 20 05/09/20 14:57 Blood Pressure 105/45 L 05/09/20 14:57 O2 Sat by Pulse Oximetry (%) 96 05/09/20 09:00 Constitutional: Yes: No Distress HENT: Yes: Atraumatic, Tonsillar Exudate Cardiovascular: Yes: Regular Rate and Rhythm Respiratory: Yes: Regular Gastrointestinal: Yes: Soft, Tenderness Extremities: No: Cyanosis Edema: No Neurological: Yes: Alert, Oriented Labs: CBC, BMP 05/09/20 07:05 05/09/20 07:05 INR, PTT INR 1.01 (0.83-1.09) 05/07/20 10:25 Assessment/Plan Impression 1. YAEL 2. hypokalemia 3. obesity 4. htn 5. asthma Plan Renal function improved. No overt electrolyte or acid/base disturbance noted Can d/c IVF if pt is tolerated oral diet work up for diarrhea and abdominal pain as per primary team Will follow up as needed Danial Harris DO
--- NOTE | 2020-05-12 11:16 | EKG ---
Test Reason : Blood Pressure : / mmHG Vent. Rate : 100 BPM Atrial Rate : 100 BPM P-R Int : 148 ms QRS Dur : 074 ms QT Int : 342 ms P-R-T Axes : 082 050 043 degrees QTc Int : 441 ms POOR DATA QUALITY, INTERPRETATION MAY BE ADVERSELY AFFECTED NORMAL SINUS RHYTHM CANNOT RULE OUT ANTERIOR INFARCT , AGE UNDETERMINED ABNORMAL ECG WHEN COMPARED WITH ECG OF 15-AUG-2019 14:41, MINIMAL CRITERIA FOR ANTERIOR INFARCT ARE NOW PRESENT NONSPECIFIC T WAVE ABNORMALITY, IMPROVED IN INFERIOR LEADS T WAVE INVERSION NOW EVIDENT IN ANTERIOR LEADS NONSPECIFIC T WAVE ABNORMALITY NO LONGER EVIDENT IN LATERAL LEADS Confirmed by MD SOURAV, SHERYL ([id number]) on 05/12/2020 11:16:37 AM Referred By: Confirmed By:SHERYL BENJAMIN MD
== END 2020-05-09 16:42 | disposition home health service (06) ==
LOC: JER 08:18 → JERBED 13:28 → INTOOBSV 13:28 → UNDOADMOB 13:28 → J7W 05-08 00:38 → JERBED 05-08 00:38 → J7W 05-08 11:48 → JERBED 05-08 11:48
PROVIDERS: ADMIT Internal Medicine; ATTEND Student in an Organized Health Care Education/Training Program
PROC: 3E023GC Introduction of Other Therapeutic Substance into Muscle, Percutaneous Approach (ICD-10-PCS; principal; 2020-05-08)
PROC: 3E033GC Introduction of Other Therapeutic Substance into Peripheral Vein, Percutaneous Approach (ICD-10-PCS; 2020-05-08)
PROC: 3E0337Z Introduction of Electrolytic and Water Balance Substance into Peripheral Vein, Percutaneous Approach (ICD-10-PCS; 2020-05-08)
DX: J45.909 Unspecified asthma, uncomplicated (principal); N17.9 Acute kidney failure, unspecified; R79.89 Other specified abnormal findings of blood chemistry; M19.90 Unspecified osteoarthritis, unspecified site; M62.82 Rhabdomyolysis; Z90.5 Acquired absence of kidney; Z68.41 Body mass index [BMI] 40.0-44.9, adult; E66.01 Morbid (severe) obesity due to excess calories; I10 Essential (primary) hypertension; Z29.9 Encounter for prophylactic measures, unspecified; Z91.012 Allergy to eggs; Z88.8 Allergy status to other drugs, medicaments and biological substances; Z88.0 Allergy status to penicillin
CPT/HCPCS: 36415; 71045-TC-FY; 76775-TC; 80048; 80053; 81003; 82550; 82553; 82565; 82962; 83735; 84100; 84300; 84443; 84484; 85025; 85379; 85610; 85730; 93005; 93010; 93970-TC; 96361; 96365; 96372; 96375; 97116-GP; 97161-GP; 99285-25; G0378; J1644; J3480; U0003

== ENCOUNTER 2020-09-25 23:23 | Emergency (ER) | payer OTHER ==
[2020-09-25 23:41] VITALS: BP 00/00; PULSE 0; BMI 34.2
== END 2020-09-26 03:20 | disposition expired ==
LOC: JER 23:23
DX: I46.9 Cardiac arrest, cause unspecified (principal)
CPT/HCPCS: 99285-25